=== PATIENT | female | born 1990 | race Caucasian/White ===

== ENCOUNTER 2019-06-06 10:10 | Emergency (ER) | payer SELFPAY ==
[2019-06-06 10:16] VITALS: BP 125/74; PULSE 107; RESP 20; TEMP 36.5; O2SAT 95
--- NOTE | 2019-06-06 10:24 | ED.GENADUL_ITS ---
Discharge Plan Disposition Patient Disposition: HOME Condition: Improving Discharge Details Chief Complaint: GenMedical Clinical Impression: Exudative pharyngitis Primary Care Provider: None,None ED Provider: Reji Valenzuela Home Meds and New Rx's Prescriptions: New penicillin V potassium 500 mg tablet 500 mg PO TID 10 Days Qty: 30 RF: 0 Discharge Instructions Instructions: Pharyngitis (ED) Additional Instructions: Please take penicillin as prescribed. Home to rest today. Small, frequent sips of fluids and/or popsicles to maintain hydration. May use Tylenol and or ibuprofen if needed for discomfort. Return for worsening, the development of drooling, difficulty talking or breathing, or any other acute concerns. We will refer you for follow-up to establish primary care in this area. Medical Decision Making 29-year-old female presents with day 3 of sore throat, body ache, fever and chills at home. She is afebrile but slightly tachycardic, in mild distress and dehydrated in appearance. Differential diagnosis includes pharyngitis, influenza, viral syndrome. IV placed, patient given fluid bolus, ketorolac, dexamethasone for its anti- inflammatory properties. Her diagnostic studies reveal rapid strep test is positive. Laboratory otherwise notable for elevated white blood cell count of 16, with left shift, consistent with acute illness. Chemistries unremarkable, mono screen negative. We will treat with a course of penicillin. She is improving following parenteral meds and fluids. She understands homecare as well as return/follow- up indications. HPI General Mode of arrival: ambulatory . Date/Time Provider Initiated Documentation: 06/06/19 10:11 . Limitations to Documentation: no limitations . History of Present Illness 29 year old F presents to the emergency department with the chief complaint of 3 days sore throat, chills, body ache, described as moderate, Quality is described as dull and constant, and is localized to the mouth. Patient reports no radiation. Patient started experiencing this day(s) and it has been constant. No relieving factors improve symptom(s), No exacerbating factors reported . Patient notes fever/chills, loss of appetite and malaise; denies cough and shortness of breath. 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 No vomiting. No diarrhea. No recent travel. 6 systems reviewed and otherwise negative [facility] Social History Smoking/Tobacco Use Status: Current every day Alcohol Intake: current Alcohol Intake frequency: a few times a week Substance use type: does not use Do you feel safe at home: Yes Exam Narrative Exam Narrative: GEN: awake, alert, oriented 3. Pleasant, well groomed, interactive. HEAD: Normocephalic, atraumatic ENT: Mucous membranes dry, oropharynx erythematous tonsillar pillars with scant white exudate, the uvula is midline there is no asymmetry, External ear exam unremarkable EYES: PERRL, EOMI NECK: Full ROM, anterior submandibular SACHI, no menigismus CHEST/RESP: Nontender, clear to auscultation bilateral, no wheeze/rhonchi/rales CARDIOVASCULAR: Regular and tachycardic, no murmur, rub yulia. 2+ Rad pulse bilateral ABDOMEN: Soft, nontender, no mass. +Bowel sounds EXT: Full ROM, no edema, no rash Neuro: Grossly normal neurologic exam, conversant, interactive. Psych: Speech fluent, thoughts congruent, affect normal Course Vital Signs Vital signs: Vital Signs Temperature 36.5 C 06/06/19 10:16 Pulse 107 H 06/06/19 10:16 Respiratory Rate 20 06/06/19 10:16 Blood Pressure 125/74 06/06/19 10:16 Pulse Oximetry 95 06/06/19 10:16 Temperature 36.5 C 06/06/19 10:16 Temperature Source Skin 06/06/19 10:16 Pulse 107 H 06/06/19 10:16 Respiratory Rate 20 06/06/19 10:16 Respiratory Effort 06/06/19 10:21 Respiratory Depth Normal 06/06/19 10:21 Respiratory Pattern Normal 06/06/19 10:21 Blood Pressure 125/74 06/06/19 10:16 Blood Pressure Position Sitting 06/06/19 10:16 Pulse Oximetry 95 06/06/19 10:16 Oxygen Delivery Method Room Air 06/06/19 10:16 Oxygen Flow Rate 0 06/06/19 10:16 Pain Level 8 06/06/19 10:16 Lab/Test Results Lab/Test Results: 06/06/19 10:23 Nasopharynx Influenza Types A,B Antigen - Pending
[2019-06-06] MEDS: Normal Saline Flush 10 ML SYR IVP (10:30)
[2019-06-06] MEDS: Normal Saline 1,000 ML 1000 ML IV (10:35)
[2019-06-06] MEDS: Dexamethasone 10 MG/ML VIAL IVP (10:41)
[2019-06-06] MEDS: Ketorolac 15 MG/ML VIAL IVP (10:42)
[2019-06-06 10:48] LABS: HCT 39.7 % (36.0-46.0); HGB 13.5 g/dL (12.0-15.5); Mean Corpuscular Volume 94.1 fL (80-95); Mean Platelet Volume 8.7 fL (8.0-11.0); Platelet Count 206 x1000/uL (130-400); RBC 4.22 m/cumm (4.00-5.20); RBC Distribution Width 12.3 % (11.7-14.6); White Blood Cell Count 16.79 k/cumm (4.4-10.8)
[2019-06-06 10:57] LABS: ALT 38 U/L (14-59); AST 13 U/L (15-37); Albumin 3.5 g/dL (3.4-5.0); Alkaline Phosphatase 87 U/L (46-116); BUN 6 mg/dL (7-18); Bilirubin, Total 0.6 mg/dL (0.2-1.0); Calcium 8.6 mg/dL (8.5-10.1); Chloride 101 mmol/L (98-107); Glucose 130 mg/dL (70-100); Potassium 3.7 mmol/L (3.5-5.1); Sodium 137 mmol/L (136-145); Total Protein 8.2 g/dL (6.4-8.2)
[2019-06-06 11:00] LABS: Mono Screening Negative (Negative)
[2019-06-06 11:04] LABS: Absolute Lymphocyte Count 1.34 k/cumm (1.2-3.4); Absolute Monocyte Count 1.18 k/cumm (0.11-0.7); Absolute Neutrophil Count 14.27 k/cumm (1.2-6.7); Atypical Lymphocytes % 1; Diff Comment Manual Differential; RBC Morphology Normal
--- NOTE | 2019-06-06 12:08 | NUR.NOTE ---
pt states feeling better tolerating popsicle Nursing Note:
[2019-06-06 12:13] VITALS: BP 114/68; PULSE 90; RESP 16; TEMP 36.5; O2SAT 96
== END 2019-06-06 12:19 | disposition home or self-care (01) ==
PROVIDERS: Emergency Provider Emergency Medicine
DX: J02.0 Streptococcal pharyngitis (principal)
CPT/HCPCS: 36415; 80053; 87449; 87880; 96361; 96374; 96375; 99284; 85025; 86308; J1100; J1885

== ENCOUNTER 2019-11-25 16:14 | Outpatient (REF) | payer MEDICAID, SELFPAY ==
[2019-11-25 18:28] LABS: *AMPHETAMINES SCREEN URINE Negative (Negative); *BARBITURATES SCREEN URINE Negative (Negative); *BENZODIAZEPINES SCREEN URINE Negative (Negative); Cannabinoids THC Negative (Negative); Cocaine Screen,Urine Negative (Negative); METHADONE URINE SCREEN Negative (Negative); OPIATES URINE SCREEN Negative (Negative)
[2019-11-25 19:10] LABS: Tricyclic Antidepressants Negative (Negative)
[2019-11-27 10:12] LABS: Buprenorphine 576.6 ng/mL; Norbuprenorphine 441.8 ng/mL
== END 2019-11-25 16:34 ==
LOC: LBN 16:14
PROVIDERS: Visit Provider Advanced Practice Midwife
DX: Z34.91 Encounter for supervision of normal pregnancy, unspecified, first trimester (principal)
CPT/HCPCS: 80307; 87086

== ENCOUNTER 2019-12-23 01:06 | Outpatient (CLI) | payer MEDICAID, SELFPAY ==
--- NOTE | 2019-12-23 07:15 | DI.US_ITS ---
EXAM: US OB 2-3 TRIMESTER W MOD CLINICAL HISTORY: 18 wk anatomy survey,Z34.90. TECHNIQUE: Transabdominal obstetrical ultrasound performed. COMPARISON: No exams were available for comparison FINDINGS: There is a single living intrauterine gestation. The estimated sonographic age is 18 weeks. The placenta is anterior and low lying. The placental tip is 1.8 cm from the internal os. Visually the amniotic fluid is within normal limits. heart rate is 147 beats per minute. nose and lips were not well evaluated on this examina tion. In addition, there is a question of dilatation of the renal collecting systems. However, an A P measurement of the collecting systems were not obtained during this examination. No other or placental abnormalities are identified. IMPRESSION: 1. Single live intrauterine gestation as above. 2. Low-lying placenta. Follow-up is recommended. 3. Question of dilatation of the renal collecting system. However, AP measurements of the collecting systems were not obtained. 4. The nose and lips were not visualized well during this examination. 5. The patient should return for re-evaluation of the renal collecting system, the low-lying placenta and the nose and lips. Patient is scheduled to return 12/30/19. DATA REPOSITORY:
== END 2019-12-23 01:26 ==
PROVIDERS: Visit Provider Advanced Practice Midwife
DX: O44.42 Low lying placenta NOS or without hemorrhage, second trimester (principal); Z3A.18 18 weeks gestation of pregnancy
CPT/HCPCS: 76805

== ENCOUNTER 2019-12-23 15:01 | Outpatient (REF) | payer MEDICAID, SELFPAY ==
--- NOTE | 2019-12-23 13:45 | PAPFT_PTH ---
PATIENT: Juan Stephenson LOC: [facility] U#:[id number] AGE/SX: 29/F ROOM: RE12/23/[address]: Sergio Olvera RN : 1990 BED: DIS: 12/23/2019 SPEC #: [id number] RECD: 12/23/19 15:43 STATUS: VANESSA REDeon #: [id number] TEOFILO: 12/23/19 13:[address]: Sergio Olvera DEPT: [facility] Cytology RECD BY: Richard Hernandez Tissues: 1 - CX/ENDOCX FOR PAP SMEARS Procedures: PAP THIN PREP/UVM Screening HPV DNA PROBE Comments: [id number]
[2019-12-27 15:41] LABS: Chlamydia Result Negative (Negative); GC Result Negative (Negative)
== END 2019-12-23 15:21 ==
LOC: LBN 15:01
PROVIDERS: Visit Provider Advanced Practice Midwife
DX: Z34.92 Encounter for supervision of normal pregnancy, unspecified, second trimester (principal); Z12.4 Encounter for screening for malignant neoplasm of cervix; Z11.51 Encounter for screening for human papillomavirus (HPV); Z11.3 Encounter for screening for infections with a predominantly sexual mode of transmission
CPT/HCPCS: 87491; 87591; 88142; 87624

== ENCOUNTER 2019-12-30 00:29 | Outpatient (CLI) | payer MEDICAID, SELFPAY ==
--- NOTE | 2019-12-30 | DI.US_ITS ---
EXAM: US OB F/U FACIAL/LVOT/RVOT CLINICAL HISTORY: F/U TO VIEW NOSE AND LIPS. COMPARISON: US OB 2-3 TRIMESTER W MOD from 12/23/2019 TECHNIQUE: Transabdominal obstetrical ultrasound performed. FINDINGS: Sonographic images demonstrate a single intrauterine gestation. The placenta is again noted to be anterior and low lying. The tip of the placenta measures 1.2 cm fr om the internal os. heart rate motion is Dopplered at: 143 bpm. Again noted is mild bilateral symmetric pelviectasis. The renal pelves were measured in the transver se dimension at 3 millimeters. nose/lips/palate: Unremarkable. Cervical length 4.3 cm. Amount of fluid is within normal limits. IMPRESSION: Bilateral renal pelvis measurement of 3 millimeters is within normal limits and likely represen ts physiologic pelviectasis. Low-lying placenta. DATA REPOSITORY:
== END 2019-12-30 00:49 ==
PROVIDERS: Visit Provider Advanced Practice Midwife
DX: O44.42 Low lying placenta NOS or without hemorrhage, second trimester (principal); Z3A.19 19 weeks gestation of pregnancy
CPT/HCPCS: 76815

== ENCOUNTER 2019-12-30 13:44 | Outpatient (REF) | payer MEDICAID, SELFPAY ==
[2019-12-30 14:35] LABS: Abs Immature Grans 0.01 k/cumm (0.0-0.09); Absolute Eosinophil Count 0.07 k/cumm (0.0-0.7); Absolute Lymphocyte Count 2.14 k/cumm (1.2-3.4); Absolute Monocyte Count 0.61 k/cumm (0.11-0.7); Absolute Neutrophil Count 3.02 k/cumm (1.2-6.7); Eosinophils % 1.2; HGB 12.6 g/dL (12.0-15.5); Immature Grans % 0.2 %; Lymphocytes % 36.6; Mean Corpuscular Hemoglobin 31.6 pg (27.0-33.0); Mean Corpuscular Volume 90.2 fL (80-95); Mean Platelet Volume 9.1 fL (8.0-11.0); Monocytes % 10.4; Neutrophils % 51.6; Platelet Count 236 x1000/uL (130-400); RBC 3.99 m/cumm (4.00-5.20); RBC Distribution Width 12.6 % (11.7-14.6); White Blood Cell Count 5.85 k/cumm (4.4-10.8)
[2019-12-30 14:39] LABS: Glucose,1 Hr (Glucola) 118 mg/dL (80-140)
[2019-12-30 14:52] LABS: TSH (W/Ref FT4) 1.67 uIU/mL (0.36-3.74)
[2019-12-31 10:10] LABS: Hepatitis C Ab w Rflx HCV PCR Negative (Negative)
[2019-12-31 10:11] LABS: HIV-1/2 Ag & Ab Screen Negative (Negative)
[2019-12-31 10:25] LABS: Rubella IgG Ab (UVM) Positive (See Note); Varicella IgG Antibody Positive (See Note)
[2019-12-31 11:01] LABS: Hepatitis B Surface Ag Negative (Negative)
[2020-01-01 10:27] LABS: Syphilis Total Ab w/Reflex Nonreactive (Nonreactive)
== END 2019-12-30 14:04 ==
LOC: LBN 13:44
PROVIDERS: Advanced Practice Midwife; Visit Provider Advanced Practice Midwife
DX: Z34.91 Encounter for supervision of normal pregnancy, unspecified, first trimester (principal); Z11.59 Encounter for screening for other viral diseases; Z11.4 Encounter for screening for human immunodeficiency virus [HIV]; Z01.84 Encounter for antibody response examination
CPT/HCPCS: 82950; 86787; 86803; 86850; 86900; 86901; 87340; 87389; 84443; 85025; 86762; 86780

== ENCOUNTER 2020-02-21 18:25 | Outpatient (REF) | payer MEDICAID, SELFPAY ==
[2020-02-21 17:24] LABS: *AMPHETAMINES SCREEN URINE Negative (Negative); *BARBITURATES SCREEN URINE Negative (Negative); *BENZODIAZEPINES SCREEN URINE Negative (Negative); Cannabinoids THC Negative (Negative); Cocaine Screen,Urine Negative (Negative); METHADONE URINE SCREEN Negative (Negative); OPIATES URINE SCREEN Negative (Negative)
[2020-02-21 17:28] LABS: Tricyclic Antidepressants Negative (Negative)
[2020-02-24 08:17] LABS: Buprenorphine 157.1 ng/mL; Norbuprenorphine 396.9 ng/mL
== END 2020-02-21 18:45 ==
LOC: LBN 18:25
PROVIDERS: Visit Provider Advanced Practice Midwife
DX: Z34.92 Encounter for supervision of normal pregnancy, unspecified, second trimester (principal)
CPT/HCPCS: 80307

== ENCOUNTER 2020-03-21 00:53 | Outpatient (CLI) | payer MEDICAID, SELFPAY ==
--- NOTE | 2020-03-21 12:45 | DI.US_ITS ---
EXAM: US OB F/U FACIAL/LVOT/RVOT CLINICAL HISTORY: low lying placenta, related condition, 026.93 TECHNIQUE: Ultrasound performed using standard protocol. COMPARISON: US US OB F/U FACIAL/LVOT/RVOT from 12/30/2019 FINDINGS: Limited OB ultrasound was performed to re-evaluate await low lying placenta identified prior ultrasou nd December 29. On today's examination there is no placenta previa, the inferior margin of the placenta lies 32 wilfredo meters above the internal cervical os. Fetus is in cephalic presentation. heart rate is 141 BPM. IMPRESSION: DATA REPOSITORY:
== END 2020-03-21 01:13 ==
PROVIDERS: PCP Family Medicine; Visit Provider Advanced Practice Midwife
DX: O12.13 Gestational proteinuria, third trimester (principal)
CPT/HCPCS: 76815

== ENCOUNTER 2020-03-21 03:43 | Outpatient (CLI) | payer MEDICAID, SELFPAY ==
[2020-03-21 13:55] LABS: Glucose,1 Hr (Glucola) 107 mg/dL (80-140)
[2020-03-21 14:06] LABS: HCT 34.5 % (36.0-46.0); HGB 11.8 g/dL (12.0-15.5); Mean Corp. HGB Concentration 34.2 g/dL (32.0-36.0); Mean Corpuscular Hemoglobin 31.1 pg (27.0-33.0); Platelet Count 258 x1000/uL (130-400); RBC 3.79 m/cumm (4.00-5.20); RBC Distribution Width 13.3 % (11.7-14.6); White Blood Cell Count 7.59 k/cumm (4.4-10.8)
[2020-03-21 14:22] LABS: ALT 15 U/L (14-59); AST 13 U/L (15-37); Albumin 2.9 g/dL (3.4-5.0); Alkaline Phosphatase 93 U/L (46-116); Anion Gap 9.8 mmol/L (3-11); BUN 7 mg/dL (7-18); Bilirubin, Total 0.2 mg/dL (0.2-1.0); CO2 23.2 mmol/L (21.0-32.0); CREATININE 0.52 mg/dL (0.55-1.02); Calcium 8.6 mg/dL (8.5-10.1); Chloride 103 mmol/L (98-107); Glucose 108 mg/dL (74-106); Potassium 3.8 mmol/L (3.5-5.1); Sodium 136 mmol/L (136-145); Total Protein 6.9 g/dL (6.4-8.2); Uric Acid 2.8 mg/dL (2.6-6.0)
[2020-03-21 17:19] LABS: *AMPHETAMINES SCREEN URINE Negative (Negative); *BARBITURATES SCREEN URINE Negative (Negative); *BENZODIAZEPINES SCREEN URINE Negative (Negative); Cannabinoids THC Negative (Negative); Cocaine Screen,Urine Negative (Negative); METHADONE URINE SCREEN Negative (Negative); OPIATES URINE SCREEN Negative (Negative); Tricyclic Antidepressants Negative (Negative)
== END 2020-03-21 04:03 ==
PROVIDERS: Advanced Practice Midwife; PCP Family Medicine; Visit Provider Advanced Practice Midwife
DX: O99.323 Drug use complicating pregnancy, third trimester (principal); O99.333 Smoking (tobacco) complicating pregnancy, third trimester
CPT/HCPCS: 36415; 76815; 80053; 80307; 82950; 85027; 82565; 84156; 84550

== ENCOUNTER 2020-04-05 13:01 | Outpatient (REF) | payer MEDICAID, SELFPAY ==
[2020-04-05 13:36] LABS: *AMPHETAMINES SCREEN URINE Negative (Negative); *BARBITURATES SCREEN URINE Negative (Negative); *BENZODIAZEPINES SCREEN URINE Negative (Negative); Cannabinoids THC Negative (Negative); Cocaine Screen,Urine Negative (Negative); METHADONE URINE SCREEN Negative (Negative); OPIATES URINE SCREEN POSITIVE (Negative); Tricyclic Antidepressants Negative (Negative)
[2020-04-08 05:43] LABS: Codeine 32 ng/mL (Cutoff: 25); Dihydrocodeine Negative ng/mL (Cutoff: 25); Hydrocodone Negative ng/mL (Cutoff: 25); Hydromorphone Negative ng/mL (Cutoff: 25); Morphine 272 ng/mL (Cutoff: 25); Naloxone 274 ng/mL (Cutoff: 25); Norhydrocodone Negative ng/mL (Cutoff: 25); Noroxycodone Negative ng/mL (Cutoff: 25); Noroxymorphone Negative ng/mL (Cutoff: 25); Opiates Interpretation Positive.
[2020-04-08 15:27] LABS: Buprenorphine 132.9 ng/mL; Norbuprenorphine 521.6 ng/mL
== END 2020-04-05 13:21 ==
LOC: LBN 13:01
PROVIDERS: PCP Family Medicine; Visit Provider Advanced Practice Midwife
DX: F11.20 Opioid dependence, uncomplicated (principal); F19.21 Other psychoactive substance dependence, in remission
CPT/HCPCS: 80307; 80361

== ENCOUNTER 2020-04-10 14:17 | Outpatient (REF) | payer MEDICAID, SELFPAY ==
[2020-04-10 15:12] LABS: *AMPHETAMINES SCREEN URINE Negative (Negative); *BARBITURATES SCREEN URINE Negative (Negative); *BENZODIAZEPINES SCREEN URINE Negative (Negative); Cannabinoids THC Negative (Negative); Cocaine Screen,Urine Negative (Negative); METHADONE URINE SCREEN Negative (Negative); OPIATES URINE SCREEN Negative (Negative); Tricyclic Antidepressants Negative (Negative)
[2020-04-10 15:14] LABS: PROTEIN 12.4 mg/dL
[2020-04-10 16:11] LABS: COMMENT (LAB VIEW ONLY) 83.22 mg/dL; Prot/Crea Ur Ratio 0.14
[2020-04-13 13:16] LABS: Norbuprenorphine 292.8 ng/mL
== END 2020-04-10 14:37 ==
LOC: LBN 14:17
PROVIDERS: PCP Family Medicine; Visit Provider Advanced Practice Midwife
DX: Z34.90 Encounter for supervision of normal pregnancy, unspecified, unspecified trimester (principal); F19.21 Other psychoactive substance dependence, in remission
CPT/HCPCS: 80307; 82565; 84156

== ENCOUNTER 2020-04-12 02:59 | Outpatient (CLI) | payer MEDICAID, SELFPAY ==
--- NOTE | 2020-04-12 07:45 | DI.US_ITS ---
EXAM: US OB SAMUEL WEIGHT CLINICAL HISTORY: Gestational hypertension,O13.9 TECHNIQUE: Ultrasound performed using standard protocol. COMPARISON: US US OB F/U FACIAL/LVOT/RVOT from 03/21/2020 FINDINGS: Ob ultrasound was performed utilizing 3rd trimester protocol. biometry is consistent with gest ational age of 35 weeks and EDC of May 17. The estimated weight is 2700 grams which is at the 90th percentile for predicted gestational ag e. Placenta is anterior with no placenta previa. There is visually a normal quantity of amniotic fluid and the SAMUEL is 11. Fetus is in cephalic presentation. heart rate is 144 BPM. IMPRESSION: DATA REPOSITORY:
== END 2020-04-12 03:19 ==
PROVIDERS: PCP Family Medicine; Visit Provider Advanced Practice Midwife
DX: O13.3 Gestational [pregnancy-induced] hypertension without significant proteinuria, third trimester (principal)
CPT/HCPCS: 76816

== ENCOUNTER 2020-04-12 07:14 | Outpatient (CLI) | payer MEDICAID, SELFPAY | END 2020-04-12 07:34 | PROVIDERS: PCP Family Medicine; Visit Provider Advanced Practice Midwife | DX: O13.3 Gestational [pregnancy-induced] hypertension without significant proteinuria, third trimester (principal); Z3A.33 33 weeks gestation of pregnancy | CPT/HCPCS: 59025 ==

== ENCOUNTER 2020-04-28 17:57 | Outpatient (REF) | payer MEDICAID, SELFPAY ==
[2020-04-28 14:04] LABS: *AMPHETAMINES SCREEN URINE Negative (Negative); *BARBITURATES SCREEN URINE Negative (Negative); *BENZODIAZEPINES SCREEN URINE Negative (Negative); Cannabinoids THC Negative (Negative); Cocaine Screen,Urine Negative (Negative); METHADONE URINE SCREEN Negative (Negative); OPIATES URINE SCREEN Negative (Negative); Tricyclic Antidepressants Negative (Negative)
== END 2020-04-28 18:17 ==
LOC: LBN 17:57
PROVIDERS: PCP Family Medicine; Visit Provider Advanced Practice Midwife
DX: Z34.90 Encounter for supervision of normal pregnancy, unspecified, unspecified trimester (principal)
CPT/HCPCS: 80307; 87081

== ENCOUNTER 2020-05-11 10:17 | Outpatient (CLI) | payer MEDICAID, SELFPAY ==
[2020-05-11 11:00] LABS: HCT 35.1 % (36.0-46.0); MCH 31.3 pg (27.0-33.0); MCHC 34.2 % (32.0-36.0); MCV 91.4 fL (80-95); MPV 8.7 fL (8.0-11.0); Platelet Count 236 10^3/uL (130-400); RBC 3.84 10^6/uL (3.93-5.22); RDW 13.2 % (11.7-14.6); RDW-SD 43.8 fL; WBC 7.14 10^3/uL (4.4-10.8)
[2020-05-11 11:08] LABS: ALT 14 U/L (14-59); AST 13 U/L (15-37); Albumin 2.7 g/dL (3.4-5.0); Alkaline Phosphatase 129 U/L (46-116); Anion Gap 8.6 mmol/L (3-11); BUN 6 mg/dL (7-18); Bilirubin, Total 0.2 mg/dL (0.2-1.0); CO2 24.4 mmol/L (21.0-32.0); CREATININE 0.54 mg/dL (0.55-1.02); Calcium 8.5 mg/dL (8.5-10.1); Chloride 103 mmol/L (98-107); Glucose 93 mg/dL (74-106); Sodium 136 mmol/L (136-145); Total Protein 6.7 g/dL (6.4-8.2); Uric Acid 3.5 mg/dL (2.6-6.0)
== END 2020-05-11 10:37 ==
PROVIDERS: PCP Family Medicine; Visit Provider Advanced Practice Midwife
DX: O26.893 Other specified pregnancy related conditions, third trimester (principal); R03.0 Elevated blood-pressure reading, without diagnosis of hypertension; O99.323 Drug use complicating pregnancy, third trimester; F11.20 Opioid dependence, uncomplicated
CPT/HCPCS: 36415; 80053; 80307; 85027; 82565; 84156; 84550

== ENCOUNTER 2020-05-11 17:51 | Outpatient (REF) | payer MEDICAID, SELFPAY ==
[2020-05-11 16:25] LABS: PROTEIN 10.8 mg/dL
[2020-05-11 16:30] LABS: COMMENT (LAB VIEW ONLY) 63.62 mg/dL; Prot/Crea Ur Ratio 0.16
[2020-05-11 16:48] LABS: *AMPHETAMINES SCREEN URINE Negative (Negative); *BARBITURATES SCREEN URINE Negative (Negative); *BENZODIAZEPINES SCREEN URINE Negative (Negative); Cannabinoids THC Negative (Negative); Cocaine Screen,Urine Negative (Negative); METHADONE URINE SCREEN Negative (Negative); OPIATES URINE SCREEN Negative (Negative)
[2020-05-11 16:50] LABS: Tricyclic Antidepressants Negative (Negative)
[2020-05-17 11:08] LABS: Buprenorphine 87.4 ng/mL; Norbuprenorphine 255.8 ng/mL
== END 2020-05-11 18:11 ==
LOC: LBN 17:51
PROVIDERS: PCP Family Medicine; Visit Provider Advanced Practice Midwife
DX: F11.11 Opioid abuse, in remission; O16.3 Unspecified maternal hypertension, third trimester
CPT/HCPCS: 80307; 82565; 84156

== ENCOUNTER 2020-05-16 09:48 | Outpatient (CLI) | payer MEDICAID, SELFPAY | END 2020-05-16 10:08 | PROVIDERS: PCP Family Medicine; Visit Provider Advanced Practice Midwife | DX: Z36.83 Encounter for fetal screening for congenital cardiac abnormalities (principal); Z3A.38 38 weeks gestation of pregnancy | CPT/HCPCS: 59025 ==

== ENCOUNTER 2020-05-18 00:47 | Outpatient (CLI) | payer MEDICAID, SELFPAY ==
--- NOTE | 2020-05-18 08:00 | DI.US_ITS ---
EXAM: US OB SAMUEL WEIGHT CLINICAL HISTORY: interval growth scan,F19.21,F41.9,MEDICATION ADDICTION IN REMISSION. TECHNIQUE: Transabdominal obstetrical ultrasound performed. COMPARISON: US US OB SAMUEL WEIGHT from 04/12/2020 FINDINGS:: Number of fetuses: One. position: Vertex. Placental location: Anterior no evidence of previa. BIOMETRIC DATA: BPD: 94mm = 38+ 2 weeks HC: 334mm = 38+ 1 weeks AC: 351mm = 39 weeks FL: 76 mm = 39 weeks EFW: 3595 Gms = 67% Composite Age: 38+ 4 EDC: 28 May 2020 Heart Rate: 131BPM Amniotic fluid index: 14.0 cm. Amount of fluid is within normal limits. IMPRESSION: size and weight are within the expected range. DATA REPOSITORY:
== END 2020-05-18 01:07 ==
PROVIDERS: PCP Family Medicine; Visit Provider Advanced Practice Midwife
DX: Z34.93 Encounter for supervision of normal pregnancy, unspecified, third trimester (principal); F19.21 Other psychoactive substance dependence, in remission
CPT/HCPCS: 76816

== ENCOUNTER 2020-05-29 09:25 | Outpatient (CLI) | payer MEDICAID, SELFPAY ==
[2020-05-29 14:32] VITALS: BP 111/63; PULSE 82; TEMP 37
[2020-05-29 14:34] VITALS: BP 111/63; PULSE 82
--- NOTE | 2020-05-29 14:43 | W.OBNST ---
Date of service: 05/29/20 Time of Service: 14:43 NST Evaluation Reason for NST Reasons for Nonstress Test: POSTDATES Gestational Age Gestational Age in Weeks and Days: 40 Weeks and 3Days Test and Monitor Explained Test/Monitor Explained: Test Explained and Patient Verbalized Understanding Vital Signs Blood Pressure: 111/63 Pulse: 82 Temperature: 98.6 F NST Information Time on Monitor: 13:43 Date off Monitor: 05/29/20 Time off Monitor: 14:44 NST Interventions: PO Hydration and Reposition Patient NST Evaluation Patient States Movement: Present FHR Baseline: 125 Variability: Moderate 6-25 bpm Accelerations: 15x15 Decelerations: None NST Results: Reactive Note NST Note Note: @ 40+3 wks here for NST and check up. NST is reactive. Will return at 41 wks for NST and bedside SAMUEL. NST Reviewed and Verified by: Myah May
[2020-05-29 14:45] VITALS: BP 111/63; PULSE 82; TEMP 37
[2020-05-29 16:13] LABS: *AMPHETAMINES SCREEN URINE Negative (Negative); *BARBITURATES SCREEN URINE Negative (Negative); *BENZODIAZEPINES SCREEN URINE Negative (Negative); Cannabinoids THC Negative (Negative); Cocaine Screen,Urine Negative (Negative); METHADONE URINE SCREEN Negative (Negative); OPIATES URINE SCREEN Negative (Negative); Tricyclic Antidepressants Negative (Negative)
[2020-06-06 20:32] LABS: Buprenorphine 128.6 ng/mL; Norbuprenorphine 293.1 ng/mL
== END 2020-05-29 14:45 | disposition home or self-care (01) ==
LOC: BCD 09:30 → OBS 14:04
PROVIDERS: Visit Provider Advanced Practice Midwife
DX: O48.0 Post-term pregnancy (principal); Z3A.40 40 weeks gestation of pregnancy
CPT/HCPCS: 59025; 80307

== ENCOUNTER 2020-06-02 08:31 | Outpatient (CLI) | payer MEDICAID, SELFPAY ==
[2020-06-02 11:10] VITALS: BP 165/95; PULSE 85; TEMP 37.3
[2020-06-02 12:02] VITALS: BP 165/95; PULSE 85
--- NOTE | 2020-06-02 13:22 | W.OBNST ---
Date of service: 06/02/20 Time of Service: 13:22 NST Evaluation Reason for NST Reasons for Nonstress Test: POSTDATES Gestational Age Gestational Age in Weeks and Days: 41 Weeks and 0Days Test and Monitor Explained Test/Monitor Explained: Test Explained, Monitor Explained and Patient Verbalized Understanding Vital Signs Blood Pressure: 165/95 Pulse: 85 Temperature: 99.1 F NST Information Time on Monitor: 11:10 Date off Monitor: 06/02/20 Time off Monitor: 12:53 NST Interventions: PO Hydration NST Evaluation Patient States Movement: Present FHR Baseline: 130 Variability: Moderate 6-25 bpm Accelerations: 15x15 Decelerations: Variable NST Results: Reactive NST Results Other: SAMUEL done by CNM, 6.03, will return for IOL this afternoon Note NST Note Note: Variable decel x1 noted in otherwise reactive and cat 1 tracing, Bedside ultrasound for SAMUEL completed by Provider, cephalic presentation LOP, anterior placenta, SAMUEL of 6.03 SVE performed: 0.5/60% posterior with vtx -3 BP not repeated as pt very emotional, crying. Will repeat BP upon admission for IOL this afternoon. NST Reviewed and Verified by: Myah May
[2020-06-02 13:23] VITALS: BP 165/95; PULSE 85; TEMP 37.3
== END 2020-06-02 13:16 | disposition home or self-care (01) ==
LOC: BCD 08:33 → OBS 10:46 → BCD 10:49 → OBS 10:51
PROVIDERS: Visit Provider Advanced Practice Midwife
DX: O48.0 Post-term pregnancy (principal); O76 Abnormality in fetal heart rate and rhythm complicating labor and delivery; Z3A.41 41 weeks gestation of pregnancy
CPT/HCPCS: 59025

== ENCOUNTER 2020-06-02 13:39 | Inpatient (IN) | payer MEDICAID, SELFPAY ==
[2020-06-02 18:45] VITALS: PULSE 102; RESP 20; TEMP 36.8; O2SAT 98
--- NOTE | 2020-06-02 18:53 | HPE_ITS ---
Date of service: 06/02/20 Time of Service: 18:53 Assessment and Plan Assessment and plan (1) Post-dates : Status: Acute Assessment and plan: G1 @ 41 wks, Rh+, Rubella and Varicella Immune, GBS neg, low-normal SAMUEL today Question of gestational HTN, BP has been labile and subject to pt's emotional state and mood swings, pre-e labs nml x2 in third trimester Pt in MAT program and takes suboxone daily; pt has been educated about ESC period for 5 days Pt accompanied by /FOB for support No increased risk for shoulder dystocia other then primiparous status Increased risk for hemorrhage due to elevated BP Pt's plan is to use the tub for pain management Category 1 tracing on admission, not in labor, Hou score = 3 Plan: Admit for IOL via cervical ripening Repeat pre-e labs, follow BP's closely Begin misoprostel protocol May move to tub room when labor is active and BP is stable Dr. Madrid consulting Qualifiers: Post-term type: 40-42 weeks gestation Qualified Code(s): O48.0 - Post-term (2) Gestational hypertension: Status: Acute Assessment and plan: Pre-e labs on admission, BP q 2hrs manually Report severe range pressures to MD (3) Anxiety: Status: Chronic Assessment and plan: Discuss diagnoses, treatment options, risks and benefits openly and clearly with pt, Support pt's informed choices OB-HPI Labor/Delivery History of Present Illness Reason for Visit: POST DATES, LOW-NORMAL FLUID Chief Complaint: Scheduled Induction of Labor Indication for Induction: Gestational Hypertension and Post Date. CARLA Calculator Estimated Delivery Date Method Current WG Current Estimate 05/26/20 LMP (Certain) 41w 0d Other Estimates 05/30/20 Ultrasound #1 40w 3d Comments: 30 yo G1 @ 41 wks, evaluated earlier today with NST and SAMUEL: NST was reactive with an isolated variable noted, SAMUEL performed bedside @ 6.03, IOL scheduled for this evening via cervical ripening. Pt took low dose ASA during to reduce risk of Pre-e History of Present Expected Delivery Route/Plan - CNM FOB/cy - Reed Stephenson (his second child) Wants to avoid epidural, desires hydrotherapy in labor BB no circ GBS negative Specific Issues/Plan 1. BMI 37, early glucola: 118 2. Low dose ASA for nulliparity and BMI of 37, start 11/25/19 3. Hx tobacco abuse, is down to 1 cig every other day 4. Hx ETOH use, stopped when learned of 5. Declines optional AP screening tests Needs to sign declination of same 5a. 02/21/20 Declination of optional labs signed al 6. Takes Suboxone 12 mg daily, Rx from [facility]- Brigida Terry, TAO 6a. declines SMART Team 11/25/19 6b. retested at 33 weeks - pos. Codeine and morphine - patient ate poppy seed bagel prior to visit. Repeat UDS 4 days later=neg 6c. 36 week UDS, POSC due to suboxone treatment 04/28/20: Declines POSC. UDS neg 7. Low lying placenta, limited views of kidneys and face, Repeat US scheduled 12/29: 7a. anatomy survey completed/nml. Physiologic bilat renal pelviectasis noted, thought to be WNL. 7b. Placenta remains low lying 1.2 cm from os. F/up sono @ 28 wks- no longer low-lying 7c. physiologic pyelectasis 8, 12/31/19: + Emilie on Pap review if symptomatic at nv. al Experienced vaginitis earlier -no symptoms now. 9. Anxiety, no meds currently Assessment: History Reviewed & Current Informed Consent Informed Consent: Induction of Labor and Risk,Benefits,Alternatives Discussed Review of Systems All systems reviewed & are unremarkable except as noted in HPI and below Constitutional Constitutional: Reports system reviewed and no additional complaints, except as documented, Reports headache(s) (CARDENAS onset after pt was notified of need for Induction today) and Reports poor appetite ENT Ears, Nose, Mouth, and Throat: Reports headache(s) (CARDENAS onset after pt was notified of need for Induction today) Cardiovascular Cardiovascular: Reports system reviewed and no additional complaints, except as documented Respiratory Respiratory: Reports system reviewed and no additional complaints, except as documented Gastrointestinal Gastrointestinal: Reports system reviewed and no additional complaints, except as documented Genitourinary Genitourinary: Reports system reviewed and no additional complaints, except as documented Neurologic Neurologic: Reports headache(s) (CARDENAS onset after pt was notified of need for Induction today) Psychiatric Psychiatric: Reports anxiety [facility] Medical History Anxiety High BMI History of migraine 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, denies opiate use Family History Maternal Grandmother Diabetes Multiple sclerosis Paternal Grandmother Diabetes Social History Smoking/Tobacco Use Status: Current, status unknown Tobacco Type: cigarettes Smoking packs per day: 1 Smoking cigarettes per day: 20.0 Years smoked: 15 Smoking pack-years: 15.00 Tobacco: How many years used: 15 Alcohol Intake: former Drug use: Never Substance use type: does not use Do you feel safe at home: Yes Additional Social history: partner present, can not assess History History 2 Para 0 Hx # Term Pregnancies 0 Multiple births 0 Hx # Pregnancies 0 Ectopic pregnancies 0 AB induced 0 Hx Number of Living Children 0 AB spontaneous 1 Past Pregnancies Del. Date GA/Weeks # Outcome Route Wgt Sex Labor Lgth Anesthes ia Location [facility] 03/16/09 11 Delivery Date: 03/16/09 took miso for home SAB, has been very traumatized by the experience Myah May Home Medications and Allergies Home Medications Medication Instructions Recorded Confirmed Type B Complex PO QDAY 11/25/19 05/24/20 History aspirin 81 mg tablet,delayed 81 mg PO DAILY #90 tab 11/25/19 05/24/20 Rx release buprenorphine 2 mg-naloxone 0.5 mg 2 tab SL DAILY tab 11/25/19 05/24/20 History sublingual tablet buprenorphine 8 mg-naloxone 2 mg 1 tab SL DAILY 11/25/19 05/24/20 History sublingual tablet cholecalciferol (vitamin D3) 75 3,000 unit PO DAILY 11/25/19 05/24/20 History mcg (3,000 unit) tablet vitamins no.119-iron 1 tab PO DAILY tab 11/25/19 05/24/20 History fumarate 29 mg-folic acid 1 mg tablet omeprazole magnesium 20 mg 20 mg PO DAILY #30 tab 04/17/20 05/24/20 Rx tablet,delayed release ondansetron HCl 8 mg tablet 8 mg PO Q8H #20 tab 04/17/20 05/24/20 Rx Allergies Allergy/AdvReac Type Severity Reaction Status Date / Time No Known Allergies Allergy Unverified 05/24/20 09:32 Exam Physical Exam Vital Signs Reviewed: Yes Constitutional Constitutional: no acute distress, obese and cooperative Detailed Labor and Delivery Exam Dilation: 0.5 Effacement (%): 60 station: -3 Position: LOP Cervix position: posterior Consistency: medium Hou Score: Cervical Points Exam 0 1 2 3 Dilation Closed 1-2cm 3-4 cm 5-6cm Effacement 0-30% 40-50% 60-70% 80% Consistency Firm Medium Soft Station -3 -2 -1,0 +1,+2 Position Posterior Mid Anterior HOU Score(Cervical Ripeness Score): 3 Amniotic Membrane Status: Intact Monitor Mode: External Contraction Frequency(min): irregular and mild Contraction Intensity: Mild Fetus A Heart Rate Baseline: 135 Monitor Accelerations: Present Monitor Decelerations: None Variability: Moderate (6-25 BPM) Presentation: Cephalic Categories: Category I Est. Weight: 7 lb 11.459 oz Est. Weight: 3500 HEENT Exam HEENT Exam: Normal Neck Exam Neck Exam: Normal Respiratory Exam Respiratory Exam: Normal Cardiovascular Exam Cardiovascular Exam: Normal Abdominal Exam Abdominal Exam: Normal Detailed Abdominal Exam Abdominal: Present soft Exam Exam: Normal Detailed Exam Perineum Description: Normal Extremities Exam Extremities Exam: Normal Back/Spine/Pelvis Exam Back Exam: Normal Pelvis Adequate: Yes Skin Exam Skin Exam: Normal Neurological Exam Neurological Exam: Normal Psychiatric Exam Psychiatric Exam: Normal Results Results Group Beta Strep: Negative Blood Type: O+ Rubella Status: Immune Varicella Immunity: Immune Risk Assessment Risk for Shoulder Dystocia Historical/Initial OB: POSITIVE FOR: Pre- BMI>30; NEGATIVE FOR: Pelvic Abnormality, Previous Shoulder Dystocia or Previous Macrosomia 40 Weeks: NEGATIVE FOR: EFW> 4500 gms, Maternal Weight Gain >40lb or Post Dates Increased Risk?: No (04/28/20 as of 36 week visit al) Delivery Plan @ 36wks: 04/28/20 al Risk for Pre-Eclampsia Daily Dose ASA Indicated: Yes Date Initiated/Initials: start ASA now 11/25/19 jk Yes, if one or more: NEGATIVE FOR: Hx Pre-E/Gest HTN, Chronic HTN, Multiple Gestation, Pre-gestational DM, Renal Disease, Systemic Lupus or APA Syndrome Yes, if 2 or more: POSITIVE FOR: Nulliparity and BMI>30; NEGATIVE FOR: Age>= 35 yrs, >10yr btwn pregnancies, ethinicty, Mother/Sister w/ Pre-E or Previous IUGR Risk for Post- Hemorrhage Initial: NEGATIVE FOR: Multiple Gestation, Previous PPH, Known Clotting Deficiency, Grand Multiparity or Anticoagulation At Risk?: No (04/28/20 as of 36 week visit. al) Risks Reviewed Risks Reviewed Upon Admission: Yes
[2020-06-02] MEDS: Acetaminophen 500 MG TAB 1000 MG PO (19:20)
[2020-06-02 19:25] VITALS: BP 179/88; PULSE 92
[2020-06-02 19:32] LABS: HCT 35.6 % (36.0-46.0); MCH 31.2 pg (27.0-33.0); MCHC 33.7 % (32.0-36.0); MCV 92.5 fL (80-95); Platelet Count 227 10^3/uL (130-400); RBC 3.85 10^6/uL (3.93-5.22); RDW 13.2 % (11.7-14.6); RDW-SD 44.4 fL; WBC 7.96 10^3/uL (4.4-10.8)
[2020-06-02] MEDS: miSOPROStol 50 MCG TAB PO (19:44)
[2020-06-02 19:53] LABS: ALT 17 U/L (14-59); AST 13 U/L (15-37); Albumin 2.6 g/dL (3.4-5.0); Alkaline Phosphatase 146 U/L (46-116); BUN 5 mg/dL (7-18); Bilirubin, Total 0.3 mg/dL (0.2-1.0); CREATININE 0.44 mg/dL (0.55-1.02); Calcium 8.7 mg/dL (8.5-10.1); Chloride 104 mmol/L (98-107); Glucose 89 mg/dL (74-106); Potassium 3.5 mmol/L (3.5-5.1); Sodium 136 mmol/L (136-145); Total Protein 6.7 g/dL (6.4-8.2)
--- NOTE | 2020-06-02 19:59 | PGE_ITS ---
Date of service: 06/02/20 Time of Service: 19:59 Informed Consent Informed Consent: Induction of Labor and Risk,Benefits,Alternatives Discussed Contractions Monitor Mode: External Assessment and Plan Assessment and plan (1) Gestational hypertension: Status: Acute Assessment and plan: Labs pending, check BP q 2 hrs Report persistent severe range BP to Dr. Madrid (2) Post-dates : Status: Acute Assessment and plan: Misoprostel for cervical ripening Qualifiers: Post-term type: 40-42 weeks gestation Qualified Code(s): O48.0 - Post-term (3) Anxiety: Status: Chronic Assessment and plan: Keep pt informed of all treatment options, risks and benefits during the course of induction, labor and delivery. Objective Abnormal lab results 06/02/20 Range/Units 19: RBC 3.85 L (3.93-5.22) 10^6/uL Hct 35.6 L (36.0-46.0) % Temp Pulse Resp BP Pulse Ox 98.2 F 92 H 20 179/88 H 98 06/02/20 18:45 06/02/20 19:25 06/02/20 18:45 06/02/20 19:25 06/02/20 18:45 Laboratory Results WBC 7.96 10^3/uL (4.4-10.8) 06/02/20 19: RBC 3.85 10^6/uL (3.93-5.22) L 06/02/20 19:22 Hgb 12.0 g/dL (11.2-15.7) 06/02/20 19:22 Hct 35.6 % (36.0-46.0) L 06/02/20 19:22 MCV 92.5 fL (80-95) 06/02/20 19:22 MCH 31.2 pg (27.0-33.0) 06/02/20 19: MCHC 33.7 % (32.0-36.0) 06/02/20: RDW 13.2 % (11.7-14.6) 06/02/20 19:22 Plt Count 227 10^3/uL (130-400) 06/02/20 19:22 MPV 9.0 fL (8.0-11.0) 06/02/20 19:22 Subjective Interval history since last seen: Pt admitted to , labs drawn and first dose of misoprostel given. Initial BP is elevated, and pre-e labs are pending, pt requested tylenol 1000 mg PO for CARDENAS which was given. Pt initially declined to have a COVID swab done either STEWARD/STEWARDESS NIGHT or nasal I just don't think I should be forced to take a test that I don't want or need. Explained to pt that if her COVID status is unknown then the hospital is obligated to protect her baby from possible infection as anyone could be an asymptomatic carrier, to the point that DCF might have to be notified if she declined to comply with wearing a mask when holding and her baby. Pt expressed anger and frustration but consented to nasal swab sampling self administered with RN observing. Interventions Induction Indication: Gestational Hypertension and Post Date , Type of Induction: Misoprostol administration: Oral and Cervical Ripening , Results Hemoglobin/Hematocrit: Hgb 12.0 g/dL (11.2-15.7) 06/02/20 19:22 Hct 35.6 % (36.0-46.0) L 06/02/20 19:22 Abnormal Lab Findings: Abnormal Labs 06/02/20 19:22 RBC 3.85 L Hct 35.6 L Procedure Procedures: Cervical Ripening Cervical Ripening: Misoprostol
[2020-06-02 20:01] LABS: PROTEIN 10.4 mg/dL
[2020-06-02 20:22] LABS: COMMENT (LAB VIEW ONLY) 94.33 mg/dL; Prot/Crea Ur Ratio 0.11
[2020-06-02 20:32] LABS: Uric Acid 3.8 mg/dL (2.6-6.0)
[2020-06-02 21:11] LABS: *AMPHETAMINES SCREEN URINE Negative (Negative); *BARBITURATES SCREEN URINE Negative (Negative); *BENZODIAZEPINES SCREEN URINE Negative (Negative); Cannabinoids THC Negative (Negative); Cocaine Screen,Urine Negative (Negative); METHADONE URINE SCREEN Negative (Negative); OPIATES URINE SCREEN Negative (Negative)
[2020-06-02 21:20] LABS: Tricyclic Antidepressants Negative (Negative)
[2020-06-02 22:58] VITALS: BP 142/74; PULSE 96
[2020-06-02] MEDS: Butalbital/Acetaminophen/Caffeine 50/325/40 TAB PO (23:47)
[2020-06-03] VITALS (7 sets, daily range): BP systolic 134–151; BP diastolic 72–98; PULSE 82–97; RESP 14–18; TEMP 36.8; O2SAT 97
--- NOTE | 2020-06-03 06:15 | W.PM.OBNL1 ---
Date of service: 06/03/20 Time of Service: 06:15 Informed Consent Informed Consent: Induction of Labor and Risk,Benefits,Alternatives Discussed Assessment and Plan Assessment and plan (1) Post-dates : Status: Acute Assessment and plan: Category 1 tracing, latent phase Gestational HTN: BP remains elevated but improved to 142/74 MAT with suboxone 8 mg/2 mg SL, pt states the film makes her sick so will take her own tabs from home IOL via cervical ripening, primipara, Plan: pt to take medication from home but with full decator operator resume misoprostel IOL with breakfast Qualifiers: Post-term type: 40-42 weeks gestation Qualified Code(s): O48.0 - Post-term (2) Anxiety: Status: Chronic (3) Gestational hypertension: Status: Acute Objective Abnormal lab results 06/02/20 06/02/20 Range/Units 19:22 19:22 RBC 3.85 L (3.93-5.22) 10^6/uL Hct 35.6 L (36.0-46.0) % BUN 5 L (7-18) mg/dL Creatinine 0.44 L (0.55-1.02) mg/dL AST 13 L (15-37) U/L Alkaline Phosphatase 146 H (46-116) U/L Albumin 2.6 L (3.4-5.0) g/dL Temp Pulse Resp BP Pulse Ox 98.2 F 96 H 20 142/74 H 98 06/02/20 18:45 06/02/20 22:58 06/02/20 18:45 06/02/20 22:58 06/02/20 18:45 Laboratory Results WBC 7.96 10^3/uL (4.4-10.8) 06/02/20 19:22 RBC 3.85 10^6/uL (3.93-5.22) L 06/02/20 19:22 Hgb 12.0 g/dL (11.2-15.7) 06/02/20 19:22 Hct 35.6 % (36.0-46.0) L 06/02/20 19:22 MCV 92.5 fL (80-95) 06/02/20 19:22 MCH 31.2 pg (27.0-33.0) 06/02/20 19:22 MCHC 33.7 % (32.0-36.0) 06/02/20 19:22 RDW 13.2 % (11.7-14.6) 06/02/20 19:22 Plt Count 227 10^3/uL (130-400) 06/02/20 19:22 MPV 9.0 fL (8.0-11.0) 06/02/20 19:22 Sodium 136 mmol/L (136-145) 06/02/20 19:22 Potassium 3.5 mmol/L (3.5-5.1) 06/02/20 19:22 Chloride 104 mmol/L (98-107) 06/02/20 19:22 Carbon Dioxide 27.0 mmol/L (21.0-32.0) 06/02/20 19:22 Anion Gap 5.0 mmol/L (3-11) 06/02/20 19:22 BUN 5 mg/dL (7-18) L 06/02/20 19:22 Creatinine 0.44 mg/dL (0.55-1.02) L 06/02/20 19:22 Estimated GFR/1.73 m2 >= 60.00 (mL/min/1.73m2) 06/02/20 19:22 Glucose 89 mg/dL (74-106) 06/02/20 19:22 Uric Acid 3.8 mg/dL (2.6-6.0) 06/02/20 19:22 Calcium 8.7 mg/dL (8.5-10.1) 06/02/20 19:22 Total Bilirubin 0.3 mg/dL (0.2-1.0) 06/02/20 19:22 AST 13 U/L (15-37) L 06/02/20 19:22 ALT 17 U/L (14-59) 06/02/20 19:22 Alkaline Phosphatase 146 U/L (46-116) H 06/02/20 19:22 Total Protein 6.7 g/dL (6.4-8.2) 06/02/20 19:22 Albumin 2.6 g/dL (3.4-5.0) L 06/02/20 19:22 Ur Random Creatinine 94.33 mg/dL 06/02/20 19:07 U Random Total Protein 10.4 mg/dL 06/02/20 19:07 U [place] Prot/Creat Ratio 0.11 06/02/20 19:07 Urine Opiates Screen Negative (Negative) 06/02/20 19:07 Urine Methadone Screen Negative (Negative) 06/02/20 19:07 Ur Barbiturates Screen Negative (Negative) 06/02/20 19:07 Ur Tricyclics Screen Negative (Negative) 06/02/20 19:07 Ur Amphetamines Screen Negative (Negative) 06/02/20 19:07 U Benzodiazepines Scrn Negative (Negative) 06/02/20 19:07 Urine Cocaine Screen Negative (Negative) 06/02/20 19:07 Ur THC Screen Negative (Negative) 06/02/20 19:07 Patient ABO/Rh O Positive 06/02/20 19:22 Antibody Screen Negative 06/02/20 19:22 Vital Signs Reviewed: Yes Notable Details: All pre-e labs reviewed and are WNL Objective Narrative Objective Narrative: Pt rested through the night Subjective Patient Reports: No new Complaints Interval history since last seen: After first dose of misoprostel 50 mcg PO pt stated that she felt some minor cramping. Pt declined to take the 2nd dose at [place], preferring to rest/sleep for the night. CARDENAS continued, however despite tylenol given shortly after admission, was given 1 fioricet tab PO and pt has slept. Pt's went home to get her suboxone dosing information as what is in her record was incorrect per pt, and pt has declined medical records sharing with her MAT Provider. PA information provided by pt's states 2 tabs Bup 8mg and naloxone 2mg SL are given daily, med orders were adjusted accordingly. Pt then declined to take medication in film formulation saying it makes her sick, hospital pharmacy does not have an alternative format. RN let pt know we can have her take her own meds from home but nursing needs to check the label for correct dose. Pt became angry that the nurses have to supervise her medication administration, stating she will not resume misoprostel until 1 hour after she takes her own suboxone and feels better. left hospital again to get her medication. Results Hemoglobin/Hematocrit: Hgb 12.0 g/dL (11.2-15.7) 06/02/20 19:22 Hct 35.6 % (36.0-46.0) L 06/02/20 19:22 Abnormal Lab Findings: Abnormal Labs 06/02/20 06/02/20 19:22 19:22 RBC 3.85 L Hct 35.6 L BUN 5 L Creatinine 0.44 L AST 13 L Alkaline Phosphatase 146 H Albumin 2.6 L
--- NOTE | 2020-06-03 06:32 | NUR.NOTE ---
pt refused SL film suboxone, which is all the hospital has to offer. RN called pharmacy to confirm hospital does not have suboxone in pill form. pt states the film makes her sick and is sending home to get her own prescription. RN informed pt that RN will need to verify home prescription before she takes it, pt expressed frustration, anger and shut down. pt is refusing to continue with induction until she can take her medication and has asked to be left alone. pts spoke with RN and asked if we could give her an hour after she takes her medication and is feeling better to proceed. RN spoke with cnm about request, cnm confirmed we will wait an hour after pt takes medication to resume induction, rn informed pt and pt . Nursing Note:
[2020-06-03] MEDS: Omeprazole 20 MG CAPCR PO (08:14)
[2020-06-03] MEDS: Docusate Sodium 100 MG CAP PO (08:14)
--- NOTE | 2020-06-03 09:06 | PGE_ITS ---
Date of service: 06/03/20 Time of Service: 09:07 Informed Consent Informed Consent: Induction of Labor and Risk,Benefits,Alternatives Discussed Pelvic Exam Dilation: 0 Effacement (%): 50 station: -1 Cervix Position: posterior Consistency: soft Vaginal Exam Presentation: Cephalic Pooling: Negative Contractions Monitor Mode: Palpation (mild) Fetus A Heart Rate Baseline: 130 Presentation: Vertex Variability: Moderate (6-25 BPM) Categories: Category I FHR Rhythm: Regular Accelerations: 15 X 15 Decelerations: None Assessment and Plan Assessment and plan (1) Post-dates : Status: Acute Assessment and plan: Coping well with contractions. SVE performed and cervix posterior 50%, unable to reach os . Category 1 tracing. Comfort measures provided. Sleep was encouraged and options for rest were discussed. Will administer vistaril 50 mg PO and second dose of misoprostol. Anticipate Qualifiers: Post-term type: 40-42 weeks gestation Qualified Code(s): O4 8.0 - Post-term Objective Abnormal lab results 06/02/20 06/02/20 Range/Units 19:22 19:22 RBC 3.85 L (3.93-5.22) 10^6/uL Hct 35.6 L (36.0-46.0) % BUN 5 L (7-18) mg/dL Creatinine 0.44 L (0.55-1.02) mg/dL AST 13 L (15-37) U/L Alkaline Phosphatase 146 H (46-116) U/L Albumin 2.6 L (3.4-5.0) g/dL Temp Pulse Resp BP Pulse Ox 98.2 F 97 H 20 141/98 H 97 06/02/20 18:45 06/03/20 09:03 06/02/20 18:45 06/03/20 09:01 06/03/20 09:03 Laboratory Results WBC 7.96 10^3/uL (4.4-10.8) 06/02/20 19:22 RBC 3.85 10^6/uL (3.93-5.22) L 06/02/20 19:22 Hgb 12.0 g/dL (11.2-15.7) 06/02/20 19:22 Hct 35.6 % (36.0-46.0) L 06/02/20 19:22 MCV 92.5 fL (80-95) 06/02/20 19: MCH 31.2 pg (27.0-33.0) 06/02/20 19: MCHC 33.7 % (32.0-36.0) 06/02/20 19:22 RDW 13.2 % (11.7-14.6) 06/02/20 19:22 Plt Count 227 10^3/uL (130-400) 06/02/20 19: MPV 9.0 fL (8.0-11.0) 06/02/20 19:22 Sodium 136 mmol/L (136-145) 06/02/20 19: Potassium 3.5 mmol/L (3.5-5.1) 06/02/20: Chloride 104 mmol/L (98-107) 06/02/20: Carbon Dioxide 27.0 mmol/L (21.0-32.0) 06/02/20: Anion Gap 5.0 mmol/L (3-11) 06/02/20 19:22 BUN 5 mg/dL (7-18) L 06/02/20 19: Creatinine 0.44 mg/dL (0.55-1.02) L 06/02/20 19:22 Estimated GFR/1.73 m2 >= 60.00 (mL/min/1.73m2) 06/02/20 19: Glucose 89 mg/dL (74-106) 06/02/20 19: Uric Acid 3.8 mg/dL (2.6-6.0) 06/02/20: Calcium 8.7 mg/dL (8.5-10.1) 06/02/20 19: Total Bilirubin 0.3 mg/dL (0.2-1.0) 06/02/20 19: AST 13 U/L (15-37) L 06/02/20: ALT 17 U/L (14-59) 06/02/20 19:22 Alkaline Phosphatase 146 U/L (46-116) H 06/02/20 19:22 Total Protein 6.7 g/dL (6.4-8.2) 06/02/20 19:22 Albumin 2.6 g/dL (3.4-5.0) L 06/02/20 19:22 Ur Random Creatinine 94.33 mg/dL 06/02/20 19:07 U Random Total Protein 10.4 mg/dL 06/02/20 19:07 U [place] Prot/Creat Ratio 0.11 06/02/20 19:07 Urine Opiates Screen Negative (Negative) 06/02/20 19:07 Urine Methadone Screen Negative (Negative) 06/02/20 19:07 Ur Barbiturates Screen Negative (Negative) 06/02/20 19:07 Ur Tricyclics Screen Negative (Negative) 06/02/20 19:07 Bupropion Cancelled 06/02/20 20:42 Hydroxybupropion Cancelled 06/02/20 20:42 Ur Amphetamines Screen Negative (Negative) 06/02/20 19:07 U Benzodiazepines Scrn Negative (Negative) 06/02/20 19:07 Urine Cocaine Screen Negative (Negative) 06/02/20 19:07 Ur THC Screen Negative (Negative) 06/02/20 19:07 Reporting Documentation Cancelled 06/02/20 20:42 Reporting Documentation Cancelled 06/02/20 20:42 Patient ABO/Rh O Positive 06/02/20 19:22 Antibody Screen Negative 06/02/20 19:22 Subjective Patient Reports: No new Complaints Interval history since last seen: Juan took a bath and was feeling very tired after bath and reports that she did not sleep last night. Juan declines cord blood testing after delivery fro drugs of abuse. This was discussed with jessica May. She declined second dose of misoprostol earlier due to nausea and desire to take her own suboxone because she reports that she becomes nauseated with oral film which the hospital stocks. Her partner went home and got her oral medication and she is feeling better but still reports nausea. Results Hemoglobin/Hematocrit: Hgb 12.0 g/dL (11.2-15.7) 06/02/20 19:22 Hct 35.6 % (36.0-46.0) L 06/02/20 19:22 Abnormal Lab Findings: Abnormal Labs 06/02/20 06/02/20 19:22 19:22 RBC 3.85 L Hct 35.6 L BUN 5 L Creatinine 0.44 L AST 13 L Alkaline Phosphatase 146 H Albumin 2.6 L
[2020-06-03] MEDS: hydrOXYzine PAMOATE 25 MG CAP 50 MG PO (09:14)
[2020-06-03] MEDS: miSOPROStol 50 MCG TAB PO ×2 (09:14→21:15)
[2020-06-03 14:09] LABS: COVID-19 RT-PCR UVMMC Result Negative (Negative)
[2020-06-03] MEDS: miSOPROStol 50 MCG TAB (14:46)
--- NOTE | 2020-06-03 20:32 | NUR.NOTE ---
pt and feeling very restless at this time. pt and asked RN if there was a possibility that pt could go outside and get some fresh air or possibly go home for the night and resume induction in the morning. RN spoke with Marcy Calvillo CNM about pt requests. After consulting with Dr. Christiansen, Marcy Calvillo CNM informed RN she could offer pt the option of going home for the night and continuing induction in the morning, or pt could go for a walk and resume induction with another dose of miso. Pt and opted to go for a walk and RN will administer miso per protocol when pt returns. Marcy Barron CNM aware of plan. Nursing Note:
[2020-06-03] MEDS: Zolpidem 5 MG TAB 10 MG PO (22:56)
--- NOTE | 2020-06-04 00:06 | PGE_ITS ---
Date of service: 06/03/20 Time of Service: 23:00 Informed Consent Informed Consent: Induction of Labor and Risk,Benefits,Alternatives Discussed Pelvic Exam Dilation: 0 Effacement (%): 50 station: -1 Consistency: soft Vaginal Exam Presentation: Cephalic Pooling: Negative Contractions Monitor Mode: Palpation Contraction Frequency(min): mild Intensity: Mild Fetus A Monitor: External (US) Heart Rate Baseline: 130 Presentation: Vertex Variability: Moderate (6-25 BPM) Categories: Category I FHR Rhythm: Regular Characteristics: Normal Accelerations: 15 X 15 Amniotic Membrane Status: Intact Assessment and Plan Assessment and plan (1) Post-dates : Status: Acute Assessment and plan: Coping well with contractions. Category 1 tracing. Comfort measures provided. Took ambien for sleep. Will monitor while awake. Anticipate Qualifiers: Post-term type: 40-42 weeks gestation Qualified Code(s): O48.0 - Post-term Objective Temp Pulse Resp BP Pulse Ox 98.2 F 86 16 151/82 H 97 06/03/20 21:16 06/03/20 21:16 06/03/20 21:16 06/03/20 21:16 06/03/20 09:10 Laboratory Results WBC 7.96 10^3/uL (4.4-10.8) 06/02/20 19: RBC 3.85 10^6/uL (3.93-5.22) L 06/02/20 19:22 Hgb 12.0 g/dL (11.2-15.7) 06/02/20 19: Hct 35.6 % (36.0-46.0) L 06/02/20 19: MCV 92.5 fL (80-95) 06/02/20 19:22 MCH 31.2 pg (27.0-33.0) 06/02/20 19: MCHC 33.7 % (32.0-36.0) 06/02/20 19:22 RDW 13.2 % (11.7-14.6) 06/02/20 19:22 Plt Count 227 10^3/uL (130-400) 06/02/20 19:22 MPV 9.0 fL (8.0-11.0) 06/02/20 19:22 Sodium 136 mmol/L (136-145) 09/25/20 19:22 Potassium 3.5 mmol/L (3.5-5.1) 06/02/20 19:22 Chloride 104 mmol/L (98-107) 06/02/20 19:22 Carbon Dioxide 27.0 mmol/L (21.0-32.0) 06/02/20 19:22 Anion Gap 5.0 mmol/L (3-11) 06/02/20 19:22 BUN 5 mg/dL (7-18) L 06/02/20 19:22 Creatinine 0.44 mg/dL (0.55-1.02) L 06/02/20 19:22 Estimated GFR/1.73 m2 >= 60.00 (mL/min/1.73m2) 06/02/20 19:22 Glucose 89 mg/dL (74-106) 06/02/20 19:22 Uric Acid 3.8 mg/dL (2.6-6.0) 06/02/20 19:22 Calcium 8.7 mg/dL (8.5-10.1) 06/02/20 19:22 Total Bilirubin 0.3 mg/dL (0.2-1.0) 06/02/20 19:22 AST 13 U/L (15-37) L 06/02/20 19:22 ALT 17 U/L (14-59) 06/02/20 19:22 Alkaline Phosphatase 146 U/L (46-116) H 06/02/20 19:22 Total Protein 6.7 g/dL (6.4-8.2) 06/02/20 19:22 Albumin 2.6 g/dL (3.4-5.0) L 06/02/20 19:22 Ur Random Creatinine 94.33 mg/dL 06/02/20 19:07 U Random Total Protein 10.4 mg/dL 06/02/20 19:07 U [place] Prot/Creat Ratio 0.11 06/02/20 19:07 Urine Opiates Screen Negative (Negative) 06/02/20 19:07 Urine Methadone Screen Negative (Negative) 06/02/20 19:07 Ur Barbiturates Screen Negative (Negative) 06/02/20 19:07 Ur Tricyclics Screen Negative (Negative) 06/02/20 19:07 Bupropion Cancelled 06/02/20 20:42 Hydroxybupropion Cancelled 06/02/20 20:42 Ur Amphetamines Screen Negative (Negative) 06/02/20 19:07 U Benzodiazepines Scrn Negative (Negative) 06/02/20 19:07 Urine Cocaine Screen Negative (Negative) 06/02/20 19:07 Ur THC Screen Negative (Negative) 06/02/20 19:07 COVID-19 PCR Negative (Negative) 06/02/20 20:00 Nasopharyn COVID-19 PCR Not Applicable 06/02/20 20:00 Ref Test Perform Site [place] [facility] 06/02/20 20:00 Reporting Documentation Cancelled 06/02/20 20:42 Reporting Documentation Cancelled 06/02/20 20:42 Patient ABO/Rh O Positive 06/02/20 19:22 Antibody Screen Negative 06/02/20 19:22 Subjective Interval history since last seen: Juan received 3 doses of misoprostol. She was complaining of needing to go outside. Her contractions are mild. She was feeling 'stir crazy' from being at the [facility] for 24 hours. I discussed her status with Dr. Mary Alice Madrid. Juan was offered to return home and try to sleep there. She decided after taking a walk that she would prefer to stay at the center and try another dose of misoprostol. B.P 130 - 140/80-90 Results Hemoglobin/Hematocrit: Hgb 12.0 g/dL (11.2-15.7) 06/02/20 19:22 Hct 35.6 % (36.0-46.0) L 06/02/20 19:22 Abnormal Lab Findings: Abnormal Labs 06/02/20 06/02/20 19:22 19:22 RBC 3.85 L Hct 35.6 L BUN 5 L Creatinine 0.44 L AST 13 L Alkaline Phosphatase 146 H Albumin 2.6 L
[2020-06-04] MEDS: miSOPROStol 25 MCG TAB (06:30)
[2020-06-04 06:35] VITALS: BP 140/86; PULSE 86
--- NOTE | 2020-06-04 07:00 | PGE_ITS ---
Date of service: 06/04/20 Time of Service: 07:00 Informed Consent Informed Consent: Induction of Labor and Risk,Benefits,Alternatives Discussed Pelvic Exam Dilation: 1.5 Effacement (%): 70 station: -1 Cervix Position: mid Consistency: soft Vaginal Exam Presentation: Vertex Contractions Monitor Mode: External Intensity: Mild Fetus A Monitor: External (US) Heart Rate Baseline: 125 Presentation: Vertex Variability: Moderate (6-25 BPM) Categories: Category I FHR Rhythm: Regular Accelerations: 15 X 15 Decelerations: None Assessment and Plan Assessment and plan (1) Post-dates : Status: Acute Assessment and plan: misoprostol 25 mcg vaginal placed. Comfort measures. Anticipate . Qualifiers: Post-term type: 40-42 weeks gestation Qualified Code(s): O48.0 - Post-term Objective Temp Pulse Resp BP Pulse Ox 98.2 F 86 16 140/86 97 06/03/20 21:16 06/04/20 06:35 06/03/20 21:16 06/04/20 06:35 06/03/20 09:10 Laboratory Results WBC 7.96 10^3/uL (4.4-10.8) 06/02/20 19:22 RBC 3.85 10^6/uL (3.93-5.22) L 06/02/20 19:22 Hgb 12.0 g/dL (11.2-15.7) 06/02/20 19:22 Hct 35.6 % (36.0-46.0) L 06/02/20 19:22 MCV 92.5 fL (80-95) 06/02/20 19:22 MCH 31.2 pg (27.0-33.0) 06/02/20 19:22 MCHC 33.7 % (32.0-36.0) 06/02/20 19:22 RDW 13.2 % (11.7-14.6) 06/02/20 19:22 Plt Count 227 10^3/uL (130-400) 06/02/20 19:22 MPV 9.0 fL (8.0-11.0) 06/02/20 19:22 Sodium 136 mmol/L (136-145) 06/02/20 19:22 Potassium 3.5 mmol/L (3.5-5.1) 06/02/20 19:22 Chloride 104 mmol/L (98-107) 06/02/20 19:22 Carbon Dioxide 27.0 mmol/L (21.0-32.0) 06/02/20 19:22 Anion Gap 5.0 mmol/L (3-11) 06/02/20 19:22 BUN 5 mg/dL (7-18) L 06/02/20 19:22 Creatinine 0.44 mg/dL (0.55-1.02) L 06/02/20 19:22 Estimated GFR/1.73 m2 >= 60.00 (mL/min/1.73m2) 06/02/20 19:22 Glucose 89 mg/dL (74-106) 06/02/20 19:22 Uric Acid 3.8 mg/dL (2.6-6.0) 06/02/20 19:22 Calcium 8.7 mg/dL (8.5-10.1) 06/02/20 19:22 Total Bilirubin 0.3 mg/dL (0.2-1.0) 06/02/20 19:22 AST 13 U/L (15-37) L 06/02/20 19:22 ALT 17 U/L (14-59) 06/02/20 19:22 Alkaline Phosphatase 146 U/L (46-116) H 06/02/20 19:22 Total Protein 6.7 g/dL (6.4-8.2) 06/02/20 19:22 Albumin 2.6 g/dL (3.4-5.0) L 06/02/20 19:22 Ur Random Creatinine 94.33 mg/dL 06/02/20 19:07 U Random Total Protein 10.4 mg/dL 06/02/20 19:07 U [place] Prot/Creat Ratio 0.11 06/02/20 19:07 Urine Opiates Screen Negative (Negative) 06/02/20 19:07 Urine Methadone Screen Negative (Negative) 06/02/20 19:07 Ur Barbiturates Screen Negative (Negative) 06/02/20 19:07 Ur Tricyclics Screen Negative (Negative) 06/02/20 19:07 Bupropion Cancelled 06/02/20 20:42 Hydroxybupropion Cancelled 06/02/20 20:42 Ur Amphetamines Screen Negative (Negative) 06/02/20 19:07 U Benzodiazepines Scrn Negative (Negative) 06/02/20 19:07 Urine Cocaine Screen Negative (Negative) 06/02/20 19:07 Ur THC Screen Negative (Negative) 06/02/20 19:07 COVID-19 PCR Negative (Negative) 06/02/20 20:00 Nasopharyn COVID-19 PCR Not Applicable 06/02/20 20:00 Ref Test Perform Site [place] [facility] 06/02/20 20:00 Reporting Documentation Cancelled 06/02/20 20:42 Reporting Documentation Cancelled 06/02/20 20:42 Patient ABO/Rh O Positive 06/02/20 19:22 Antibody Screen Negative 06/02/20 19:22 Vital Signs Reviewed: Yes Subjective Patient Reports: No new Complaints Interval history since last seen: slept well with ambien and VE by RN. Results Hemoglobin/Hematocrit: Hgb 12.0 g/dL (11.2-15.7) 06/02/20 19:22 Hct 35.6 % (36.0-46.0) L 06/02/20 19:22 Abnormal Lab Findings: Abnormal Labs 06/02/20 06/02/20 19:22 19:22 RBC 3.85 L Hct 35.6 L BUN 5 L Creatinine 0.44 L AST 13 L Alkaline Phosphatase 146 H Albumin 2.6 L
[2020-06-04] MEDS: Oxytocin/Normal Saline 30 UNIT/500 ML BAG 2 UNITS IV (14:00)
[2020-06-04] MEDS: Lactated Ringers 1,000 ML 125 ML IV ×2 (14:04→21:00)
[2020-06-04] MEDS: Normal Saline Flush 10 ML SYR IVP (14:06)
[2020-06-04 14:07] VITALS: BP 146/84; PULSE 82; RESP 16; TEMP 36.8; O2SAT 98
[2020-06-04 19:01] VITALS: BP 140/80; PULSE 86; RESP 18; TEMP 36.6; O2SAT 99
--- NOTE | 2020-06-04 21:48 | W.PM.OBNL1 ---
Date of service: 06/04/20 Time of Service: 21:48 Informed Consent Informed Consent: Induction of Labor and Risk,Benefits,Alternatives Discussed Pelvic Exam Comments: Exam deferred as she is in the tub. Contractions Monitor Mode: External Intensity: Mild/Moderate Fetus A Monitor: External (US) Presentation: Cephalic Variability: Moderate (6-25 BPM) Categories: Category I FHR Rhythm: Regular Characteristics: Normal Accelerations: 15 X 15 Decelerations: None Amniotic Membrane Status: Ruptured Rupture Method: Spontaneous Amniotic Fluid: Clear Assessment and Plan Assessment and plan (1) Post-dates : Status: Acute Assessment and plan: Continue to provide support and encourage relaxation. Pain relief options discussed with nicole and she is aware. Anticipate , Qualifiers: Post-term type: 40-42 weeks gestation Qualified Code(s): O48.0 - Post-term Objective Temp Pulse Resp BP Pulse Ox 97.9 F 86 18 140/80 99 06/04/20 19:01 06/04/20 19:01 06/04/20 19:01 06/04/20 19:01 06/04/20 19:01 Laboratory Results WBC 7.96 10^3/uL (4.4-10.8) 06/02/20 19: RBC 3.85 10^6/uL (3.93-5.22) L 06/02/20 19:22 Hgb 12.0 g/dL (11.2-15.7) 06/02/20 19:22 Hct 35.6 % (36.0-46.0) L 06/02/20 19:22 MCV 92.5 fL (80-95) 06/02/20 19:22 MCH 31.2 pg (27.0-33.0) 06/02/20 19:22 MCHC 33.7 % (32.0-36.0) 06/02/20 19:22 RDW 13.2 % (11.7-14.6) 06/02/20 19:22 Plt Count 227 10^3/uL (130-400) 06/02/20 19:22 MPV 9.0 fL (8.0-11.0) 06/02/20 19:22 Sodium 136 mmol/L (136-145) 06/02/20 19:22 Potassium 3.5 mmol/L (3.5-5.1) 06/02/20 19:22 Chloride 104 mmol/L (98-107) 06/02/20 19:22 Carbon Dioxide 27.0 mmol/L (21.0-32.0) 06/02/20 19:22 Anion Gap 5.0 mmol/L (3-11) 06/02/20 19:22 BUN 5 mg/dL (7-18) L 06/02/20 19:22 Creatinine 0.44 mg/dL (0.55-1.02) L 06/02/20 19:22 Estimated GFR/1.73 m2 >= 60.00 (mL/min/1.73m2) 06/02/20 19:22 Glucose 89 mg/dL (74-106) 06/02/20 19:22 Uric Acid 3.8 mg/dL (2.6-6.0) 06/02/20 19:22 Calcium 8.7 mg/dL (8.5-10.1) 06/02/20 19:22 Total Bilirubin 0.3 mg/dL (0.2-1.0) 06/02/20 19:22 AST 13 U/L (15-37) L 06/02/20 19:22 ALT 17 U/L (14-59) 06/02/20 19:22 Alkaline Phosphatase 146 U/L (46-116) H 06/02/20 19:22 Total Protein 6.7 g/dL (6.4-8.2) 06/02/20 19:22 Albumin 2.6 g/dL (3.4-5.0) L 06/02/20 19:22 Ur Random Creatinine 94.33 mg/dL 06/02/20 19:07 U Random Total Protein 10.4 mg/dL 06/02/20 19:07 U [place] Prot/Creat Ratio 0.11 06/02/20 19:07 Urine Opiates Screen Negative (Negative) 06/02/20 19:07 Urine Methadone Screen Negative (Negative) 06/02/20 19:07 Ur Barbiturates Screen Negative (Negative) 06/02/20 19:07 Ur Tricyclics Screen Negative (Negative) 06/02/20 19:07 Bupropion Cancelled 06/02/20 20:42 Hydroxybupropion Cancelled 06/02/20 20:42 Ur Amphetamines Screen Negative (Negative) 06/02/20 19:07 U Benzodiazepines Scrn Negative (Negative) 06/02/20 19:07 Urine Cocaine Screen Negative (Negative) 06/02/20 19:07 Ur THC Screen Negative (Negative) 06/02/20 19:07 COVID-19 PCR Negative (Negative) 06/02/20 20:00 [place] COVID-19 PCR Not Applicable 06/02/20 20:00 Ref Test Perform Site [place] [facility] lab 06/02/20 20:00 Reporting Documentation Cancelled 06/02/20 20:42 Reporting Documentation Cancelled 06/02/20 20:42 Patient ABO/Rh O Positive 06/02/20 19:22 Antibody Screen Negative 06/02/20 19:22 Vital Signs Reviewed: Yes Subjective Patient Reports: New Complaints Interval history since last seen: Pitocin at 10 mu/min. SROM at 2004 clear fluid. She began experiencing strong regular contractions and requested to use the tub. Poor tracing due to telemetry monitoring and Nicole was extremely frustrated with attempts to adjust the monitor. She requested to be left alone and is having difficulty coping with contraction pain. Suggestions for pain relief were offered but Nicole became angry at the discussion of other pain relief options. The monitor was adjusted and Nicole is currently holding the monitor between contractions and it is tracing and FHR is category 1. Results Hemoglobin/Hematocrit: Hgb 12.0 g/dL (11.2-15.7) 06/02/20 19:22 Hct 35.6 % (36.0-46.0) L 06/02/20 19:22 Abnormal Lab Findings: Abnormal Labs 06/02/20 06/02/20 19:22 19:22 RBC 3.85 L Hct 35.6 L BUN 5 L Creatinine 0.44 L AST 13 L Alkaline Phosphatase 146 H Albumin 2.6 L
[2020-06-04] MEDS: FentaNYL/ROPIvacaine 2 mcg/ml and 0.1% 200 ML CADD Cassette EP (23:38)
[2020-06-04 23:58] VITALS: BP 183/104; PULSE 108
[2020-06-05] VITALS (38 sets, daily range): BP systolic 123–174; BP diastolic 65–118; PULSE 78–146; RESP 18–20; TEMP 36.6–36.9; O2SAT 98–100
[2020-06-05] MEDS: Lactated Ringers 500 ML IV
--- NOTE | 2020-06-05 00:42 | W.PM.OBNL1 ---
Date of service: 06/05/20 Time of Service: 00:42 Informed Consent Informed Consent: Induction of Labor and Risk,Benefits,Alternatives Discussed Pelvic Exam Dilation: 1 Effacement (%): 70 station: -1 Cervix Position: mid Consistency: soft Vaginal Exam Presentation: Vertex Pooling: Positive Contractions Monitor Mode: External Intensity: Mild/Moderate Fetus A Monitor: External (US) Presentation: Vertex Variability: Moderate (6-25 BPM) Categories: Category I FHR Rhythm: Regular Accelerations: 15 X 15 Decelerations: None Assessment and Plan Assessment and plan (1) Post-dates : Status: Acute Assessment and plan: Rest was encouraged. Reassess for cervical change in 2 hours. Discussed normal process of cervical ripening. Will restart Pitocin at 6 mu/min. Anticipate vaginal delivery. Objective Temp Pulse Resp BP Pulse Ox 97.9 F 96 H 18 162/118 H 98 06/04/20 19:01 06/05/20 00:39 06/04/20 19:01 06/05/20 00:39 06/05/20 00:22 Laboratory Results WBC 7.96 10^3/uL (4.4-10.8) 06/02/20 19:22 RBC 3.85 10^6/uL (3.93-5.22) L 06/02/20 19:22 Hgb 12.0 g/dL (11.2-15.7) 06/02/20 19:22 Hct 35.6 % (36.0-46.0) L 06/02/20 19:22 MCV 92.5 fL (80-95) 06/02/20 19:22 MCH 31.2 pg (27.0-33.0) 06/02/20 19:22 MCHC 33.7 % (32.0-36.0) 06/02/20 19:22 RDW 13.2 % (11.7-14.6) 06/02/20 19:22 Plt Count 227 10^3/uL (130-400) 06/02/20 19:22 MPV 9.0 fL (8.0-11.0) 06/02/20 19:22 Sodium 136 mmol/L (136-145) 06/02/20 19:22 Potassium 3.5 mmol/L (3.5-5.1) 06/02/20 19:22 Chloride 104 mmol/L (98-107) 06/02/20 19:22 Carbon Dioxide 27.0 mmol/L (21.0-32.0) 06/02/20 19:22 Anion Gap 5.0 mmol/L (3-11) 06/02/20 19:22 BUN 5 mg/dL (7-18) L 06/02/20 19:22 Creatinine 0.44 mg/dL (0.55-1.02) L 06/02/20 19:22 Estimated GFR/1.73 m2 >= 60.00 (mL/min/1.73m2) 06/02/20 19:22 Glucose 89 mg/dL (74-106) 06/02/20 19:22 Uric Acid 3.8 mg/dL (2.6-6.0) 06/02/20 19:22 Calcium 8.7 mg/dL (8.5-10.1) 06/02/20 19:22 Total Bilirubin 0.3 mg/dL (0.2-1.0) 06/02/20 19:22 AST 13 U/L (15-37) L 06/02/20 19:22 ALT 17 U/L (14-59) 06/02/20 19:22 Alkaline Phosphatase 146 U/L (46-116) H 06/02/20 19:22 Total Protein 6.7 g/dL (6.4-8.2) 06/02/20 19:22 Albumin 2.6 g/dL (3.4-5.0) L 06/02/20 19:22 Ur Random Creatinine 94.33 mg/dL 06/02/20 19:07 U Random Total Protein 10.4 mg/dL 06/02/20 19:07 U [place] Prot/Creat Ratio 0.11 06/02/20 19:07 Urine Opiates Screen Negative (Negative) 06/02/20 19:07 Urine Methadone Screen Negative (Negative) 06/02/20 19:07 Ur Barbiturates Screen Negative (Negative) 06/02/20 19:07 Ur Tricyclics Screen Negative (Negative) 06/02/20 19:07 Bupropion Cancelled 06/02/20 20:42 Hydroxybupropion Cancelled 06/02/20 20:42 Ur Amphetamines Screen Negative (Negative) 09/25/20 19:07 U Benzodiazepines Scrn Negative (Negative) 06/02/20 19:07 Urine Cocaine Screen Negative (Negative) 06/02/20 19:07 Ur THC Screen Negative (Negative) 06/02/20 19:07 COVID-19 PCR Negative (Negative) 06/02/20 20:00 Nasopharyn COVID-19 PCR Not Applicable 06/02/20 20:00 Ref Test Perform Site [place] [facility] lab 06/02/20 20:00 Reporting Documentation Cancelled 06/02/20 20:42 Reporting Documentation Cancelled 06/02/20 20:42 Patient ABO/Rh O Positive 06/02/20 19:22 Antibody Screen Negative 06/02/20 19:22 Subjective Patient Reports: No new Complaints Interval history since last seen: Juan used nitrous oxide for pain relief with good effect. She complains of back pain. She also received a sterile water injection with good effect. She used the tub and requested an epidural. She requested that the pitocin be turned off until after epidural was placed as she was having a difficult time coping with the contractions. She had previously declined SVE but consented to SVE after epidural was placed. Juan became very angry regarding lack of progress. B.P has been 140s/80-90s. B.P. after the epidural was 160/90s when patient was upset. Leaking large amounts of clear fluid. Results Hemoglobin/Hematocrit: Hgb 12.0 g/dL (11.2-15.7) 06/02/20 19:22 Hct 35.6 % (36.0-46.0) L 06/02/20 19:22 Abnormal Lab Findings: Abnormal Labs 06/02/20 06/02/20 19:22 19:22 RBC 3.85 L Hct 35.6 L BUN 5 L Creatinine 0.44 L AST 13 L Alkaline Phosphatase 146 H Albumin 2.6 L
--- NOTE | 2020-06-05 06:48 | W.PM.OBNL1 ---
Date of service: 06/05/20 Time of Service: 06:48 Informed Consent Informed Consent: Induction of Labor and Risk,Benefits,Alternatives Discussed Pelvic Exam Dilation: 2 Effacement (%): 80 station: -1 Cervix Position: mid Consistency: soft Vaginal Exam Presentation: Vertex Pooling: Positive Contractions Monitor Mode: External Contraction Frequency(min): evry 3 min Contraction Duration(sec): 50-60 Intensity: Mild/Moderate Fetus A Monitor: Internal (FSE) Presentation: Cephalic Variability: Moderate (6-25 BPM) Categories: Category I FHR Rhythm: Regular Accelerations: 15 X 15 Decelerations: Variable Assessment and Plan Assessment and plan (1) Post-dates : Status: Acute Assessment and plan: Continue pitocin. reassess in 2-3 hours. Anticipate . Comfort measures. Will Consult with MD coming on this morning regarding patient's status. Qualifiers: Post-term type: 40-42 weeks gestation Qualified Code(s): O48.0 - Post-term Objective Temp Pulse Resp BP Pulse Ox 97.9 F 78 18 140/88 98 06/05/20 06:12 06/05/20 06:12 06/05/20 06:12 06/05/20 06:12 06/05/20 00:22 Laboratory Results WBC 7.96 10^3/uL (4.4-10.8) 06/02/20 19: RBC 3.85 10^6/uL (3.93-5.22) L 06/02/20 19:22 Hgb 12.0 g/dL (11.2-15.7) 06/02/20 19:22 Hct 35.6 % (36.0-46.0) L 06/02/20 19:22 MCV 92.5 fL (80-95) 06/02/20 19:22 MCH 31.2 pg (27.0-33.0) 06/02/20 19: MCHC 33.7 % (32.0-36.0) 06/02/20 19:22 RDW 13.2 % (11.7-14.6) 06/02/20 19:22 Plt Count 227 10^3/uL (130-400) 06/02/20 19:22 MPV 9.0 fL (8.0-11.0) 06/02/20 19:22 Sodium 136 mmol/L (136-145) 06/02/20 19:22 Potassium 3.5 mmol/L (3.5-5.1) 06/02/20 19:22 Chloride 104 mmol/L (98-107) 06/02/20 19:22 Carbon Dioxide 27.0 mmol/L (21.0-32.0) 06/02/20 19:22 Anion Gap 5.0 mmol/L (3-11) 06/02/20 19:22 BUN 5 mg/dL (7-18) L 06/02/20 19:22 Creatinine 0.44 mg/dL (0.55-1.02) L 06/02/20 19:22 Estimated GFR/1.73 m2 >= 60.00 (mL/min/1.73m2) 06/02/20 19:22 Glucose 89 mg/dL (74-106) 06/02/20 19:22 Uric Acid 3.8 mg/dL (2.6-6.0) 06/02/20 19:22 Calcium 8.7 mg/dL (8.5-10.1) 06/02/20 19:22 Total Bilirubin 0.3 mg/dL (0.2-1.0) 06/02/20 19:22 AST 13 U/L (15-37) L 06/02/20 19:22 ALT 17 U/L (14-59) 06/02/20 19:22 Alkaline Phosphatase 146 U/L (46-116) H 06/02/20 19:22 Total Protein 6.7 g/dL (6.4-8.2) 06/02/20 19:22 Albumin 2.6 g/dL (3.4-5.0) L 06/02/20 19:22 Ur Random Creatinine 94.33 mg/dL 06/02/20 19:07 U Random Total Protein 10.4 mg/dL 06/02/20 19:07 U [place] Prot/Creat Ratio 0.11 06/02/20 19:07 Urine Opiates Screen Negative (Negative) 06/02/20 19:07 Urine Methadone Screen Negative (Negative) 06/02/20 19:07 Ur Barbiturates Screen Negative (Negative) 06/02/20 19:07 Ur Tricyclics Screen Negative (Negative) 06/02/20 19:07 Bupropion Cancelled 06/02/20 20:42 Hydroxybupropion Cancelled 06/02/20 20:42 Ur Amphetamines Screen Negative (Negative) 06/02/20 19:07 U Benzodiazepines Scrn Negative (Negative) 06/02/20 19:07 Urine Cocaine Screen Negative (Negative) 06/02/20 19:07 Ur THC Screen Negative (Negative) 06/02/20 19:07 COVID-19 PCR Negative (Negative) 06/02/20 20:00 Nasopharyn COVID-19 PCR Not Applicable 06/02/20 20:00 Ref Test Perform Site [place] [facility] lab 06/02/20 20:00 Reporting Documentation Cancelled 06/02/20 20:42 Reporting Documentation Cancelled 06/02/20 20:42 Patient ABO/Rh O Positive 06/02/20 19:22 Antibody Screen Negative 06/02/20 19:22 Vital Signs Reviewed: Yes Subjective Patient Reports: No new Complaints Interval history since last seen: Juan got up to the commode and voided well x 2. She has been sleeping well and is comfortable. B.P. 140/80s. Results Hemoglobin/Hematocrit: Hgb 12.0 g/dL (11.2-15.7) 06/02/20 19:22 Hct 35.6 % (36.0-46.0) L 06/02/20 19:22 Abnormal Lab Findings: Abnormal Labs 06/02/20 06/02/20 19:22 19:22 RBC 3.85 L Hct 35.6 L BUN 5 L Creatinine 0.44 L AST 13 L Alkaline Phosphatase 146 H Albumin 2.6 L
[2020-06-05] MEDS: Lactated Ringers 1,000 ML 125 ML IV (07:41)
--- NOTE | 2020-06-05 08:45 | W.OBCONSULT ---
Date of service: 06/05/20 Time of Service: 08:45 Assessment and Plan Assessment and plan (1) Post-dates : Status: Acute Assessment and plan: Continue augmentation of labor. Available for midwives if needed. Qualifiers: Post-term type: 40-42 weeks gestation Qualified Code(s): O48.0 - Post-term (2) Gestational hypertension: Status: Acute (3) Medication addiction in remission: Status: Acute (4) High BMI: Status: Acute History of Present Illness History of Present Illness Chief Complaint: Postdates , labor induction Narrative: Kindly asked to see the patient by the nurse seismic prospecting observer helper service. This is a been a patient in their care throughout her . is complicated by medication assisted therapy program. She was seen for surveillance at 41 weeks with a nonstress test that was reactive borderline amniotic fluid index and elevated blood pressure. For that reason patient was kept for labor induction. This process has been slow to this point. She has received cervical ripening with misoprostol both orally and vaginally and had spontaneous rupture of membranes approximately 12 hours ago. Fluid is clear. She did receive epidural for pain control. Most recent cervical exam this morning was approximately 2 cm 90% effaced with a category 1 heart rate tracing. I the opportunity to meet the patient and review her chart. At this point, we will continue labor augmentation with Pitocin. She is comfortable with her epidural. We will monitor her labor progress. Consults Consult date: 06/05/20 Requesting physician: Cassy Calvillo Review of Systems Narrative: Patient is alert oriented comfortable. She states that she is fatigued, tired, and wishes to nap at this point. She denies significant pain, shortness of breath. Overall, frustrated with the slow progress of the labor induction. Reassurance was given. 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 Date GA/Weeks # Outcome Route Wgt Sex Labor Lgth Anesthesia Location Prov Complic 03/16/09 11 Delivery Date: 03/16/09 took miso for home SAB, has been very traumatized by the experience Myah May Exam Narrative Exam Narrative: Patient is alert and oriented, no acute distress. Comfortable with her epidural and seated upright. heart rate is a category 1 strip with contractions approximately every 3 minutes. Pitocin currently at 12 milliunits. Other: Most recent cervical examination per nurse seismic prospecting observer helper is 2, 90%, vertex presentation Results Last Vital Signs Temp 98.2 F 06/05/20 07:45 Pulse 78 06/05/20 07:45 Resp 18 06/05/20 07:45 BP 138/82 06/05/20 07:45 Pulse Ox 98 06/05/20 00:22 Labs Result diagrams: 06/02/20 19:22 06/02/20 19:22
--- NOTE | 2020-06-05 11:30 | PGE_ITS ---
Date of service: 06/05/20 Time of Service: 11:30 Informed Consent Informed Consent: Induction of Labor and Risk,Benefits,Alternatives Discussed Assessment and Plan Assessment and plan (1) Encounter for elective induction of labor: Status: Acute Assessment and plan: Assess for cervical change when patient agrees. 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 (2) Post-dates : Status: Acute Qualifiers: Post-term type: 40-42 weeks gestation Qualified Code(s): O48.0 - Post-term (3) Gestational hypertension: Status: Acute Objective Temp Pulse Resp BP Pulse Ox 98.1 F 80 20 150/90 H 98 06/05/20 11:23 06/05/20 11:23 06/05/20 11:23 06/05/20 11:23 06/05/20 00:22 Laboratory Results WBC 7.96 10^3/uL (4.4-10.8) 06/02/20 19:22 RBC 3.85 10^6/uL (3.93-5.22) L 06/02/20 19:22 Hgb 12.0 g/dL (11.2-15.7) 06/02/20 19:22 Hct 35.6 % (36.0-46.0) L 06/02/20 19:22 MCV 92.5 fL (80-95) 06/02/20 19:22 MCH 31.2 pg (27.0-33.0) 06/02/20 19:22 MCHC 33.7 % (32.0-36.0) 06/02/20 19:22 RDW 13.2 % (11.7-14.6) 06/02/20 19:22 Plt Count 227 10^3/uL (130-400) 06/02/20 19:22 MPV 9.0 fL (8.0-11.0) 06/02/20 19:22 Sodium 136 mmol/L (136-145) 06/02/20 19:22 Potassium 3.5 mmol/L (3.5-5.1) 06/02/20 19:22 Chloride 104 mmol/L (98-107) 06/02/20 19:22 Carbon Dioxide 27.0 mmol/L (21.0-32.0) 06/02/20 19:22 Anion Gap 5.0 mmol/L (3-11) 06/02/20 19:22 BUN 5 mg/dL (7-18) L 06/02/20 19:22 Creatinine 0.44 mg/dL (0.55-1.02) L 06/02/20 19:22 Estimated GFR/1.73 m2 >= 60.00 (mL/min/1.73m2) 06/02/20 19:22 Glucose 89 mg/dL (74-106) 06/02/20 19:22 Uric Acid 3.8 mg/dL (2.6-6.0) 06/02/20 19:22 Calcium 8.7 mg/dL (8.5-10.1) 06/02/20 19:22 Total Bilirubin 0.3 mg/dL (0.2-1.0) 06/02/20 19:22 AST 13 U/L (15-37) L 06/02/20 19:22 ALT 17 U/L (14-59) 06/02/20 19:22 Alkaline Phosphatase 146 U/L (46-116) H 06/02/20 19:22 Total Protein 6.7 g/dL (6.4-8.2) 06/02/20 19:22 Albumin 2.6 g/dL (3.4-5.0) L 06/02/20 19:22 Ur Random Creatinine 94.33 mg/dL 06/02/20 19:07 U Random Total Protein 10.4 mg/dL 06/02/20 19:07 U [place] Prot/Creat Ratio 0.11 06/02/20 19:07 Urine Opiates Screen Negative (Negative) 06/02/20 19:07 Urine Methadone Screen Negative (Negative) 06/02/20 19:07 Ur Barbiturates Screen Negative (Negative) 06/02/20 19:07 Ur Tricyclics Screen Negative (Negative) 06/02/20 19:07 Bupropion Cancelled 06/02/20 20:42 Hydroxybupropion Cancelled 06/02/20 20:42 Ur Amphetamines Screen Negative (Negative) 06/02/20 19:07 U Benzodiazepines Scrn Negative (Negative) 06/02/20 19:07 Urine Cocaine Screen Negative (Negative) 06/02/20 19:07 Ur THC Screen Negative (Negative) 06/02/20 19:07 COVID-19 PCR Negative (Negative) 06/02/20 20:00 [place] COVID-19 PCR Not Applicable 06/02/20 20:00 Ref Test Perform Site [facility] lab 06/02/20 20:00 Reporting Documentation Cancelled 06/02/20 20:42 Reporting Documentation Cancelled 06/02/20 20:42 Patient ABO/Rh O Positive 06/02/20 19:22 Antibody Screen Negative 06/02/20 19:22 Subjective Patient Reports: New Complaints Interval history since last seen: Complains of lower back pain on the left. She requested to get up to the commode. She declined a SVE. B.P 140-160/88-90. Results Hemoglobin/Hematocrit: Hgb 12.0 g/dL (11.2-15.7) 06/02/20 19:22 Hct 35.6 % (36.0-46.0) L 06/02/20 19:22 Abnormal Lab Findings: Abnormal Labs 06/02/20 06/02/20 19:22 19:22 RBC 3.85 L Hct 35.6 L BUN 5 L Creatinine 0.44 L AST 13 L Alkaline Phosphatase 146 H Albumin 2.6 L
[2020-06-05 13:12] LABS: HCT 38.5 % (36.0-46.0); HGB 12.8 g/dL (11.2-15.7); MCH 31.1 pg (27.0-33.0); MCHC 33.2 % (32.0-36.0); MCV 93.4 fL (80-95); MPV 8.9 fL (8.0-11.0); Platelet Count 238 10^3/uL (130-400); RBC 4.12 10^6/uL (3.93-5.22); RDW 13.2 % (11.7-14.6); RDW-SD 45.2 fL
[2020-06-05 13:31] LABS: ALT 15 U/L (14-59); AST 15 U/L (15-37); Albumin 2.6 g/dL (3.4-5.0); Alkaline Phosphatase 160 U/L (46-116); Anion Gap 8.8 mmol/L (3-11); BUN 7 mg/dL (7-18); Bilirubin, Total 0.4 mg/dL (0.2-1.0); CO2 24.2 mmol/L (21.0-32.0); CREATININE 0.61 mg/dL (0.55-1.02); Calcium 8.7 mg/dL (8.5-10.1); Chloride 101 mmol/L (98-107); Glucose 91 mg/dL (74-106); Potassium 3.6 mmol/L (3.5-5.1); Sodium 134 mmol/L (136-145); Total Protein 6.9 g/dL (6.4-8.2); Uric Acid 3.6 mg/dL (2.6-6.0)
--- NOTE | 2020-06-05 13:37 | PGE_ITS ---
Date of service: 06/05/20 Time of Service: 13:37 Informed Consent Informed Consent: Induction of Labor and Risk,Benefits,Alternatives Discussed Pelvic Exam Dilation: 5 Effacement (%): 100 station: 0 Cervix Position: mid Consistency: soft Vaginal Exam Presentation: Cephalic Pooling: Positive Contractions Monitor Mode: External Contraction Frequency(min): Q 2 minutes Contraction Duration(sec): 50-60 Intensity: Moderate/Strong Fetus A Monitor: External (US) Heart Rate Baseline: 120 Presentation: Vertex Variability: Moderate (6-25 BPM) Categories: Category I Accelerations: 15 X 15 Decelerations: Variable (brief variables with contractions. ) Recurrence: Recurrent Amniotic Membrane Status: Ruptured Assessment and Plan Assessment and plan (1) Encounter for elective induction of labor: Status: Acute Assessment and plan: I suggested an IUPC to monitor the strength and pattern of her contractions. Juan declined this intervention and expressed frustration with the process and said ' you are torturing me She expressed her fear of a after the long induction and I reassured her that I am not considering at this time but I would like to have more information about her contractions. She requested to use the commode again, and she sat on the commode for a while per her request. Anticipate . Objective Abnormal lab results 06/05/20 06/05/20 Range/Units 13:00 13:00 WBC 13.00 H (4.4-10.8) 10^3/uL Sodium 134 L (136-145) mmol/L Alkaline Phosphatase 160 H (46-116) U/L Albumin 2.6 L (3.4-5.0) g/dL Temp Pulse Resp BP Pulse Ox 98.1 F 80 20 150/90 H 98 06/05/20 11:23 06/05/20 11:23 06/05/20 11:23 06/05/20 11:23 06/05/20 00:22 Laboratory Results WBC 13.00 10^3/uL (4.4-10.8) H 06/05/20 13:00 RBC 4.12 10^6/uL (3.93-5.22) 06/05/20 13:00 Hgb 12.8 g/dL (11.2-15.7) 06/05/20 13:00 Hct 38.5 % (36.0-46.0) 06/05/20 13:00 MCV 93.4 fL (80-95) 06/05/20 13:00 MCH 31.1 pg (27.0-33.0) 06/05/20 13:00 MCHC 33.2 % (32.0-36.0) 06/05/20 13:00 RDW 13.2 % (11.7-14.6) 06/05/20 13:00 Plt Count 238 10^3/uL (130-400) 06/05/20 13:00 MPV 8.9 fL (8.0-11.0) 06/05/20 13:00 Sodium 134 mmol/L (136-145) L 06/05/20 13:00 Potassium 3.6 mmol/L (3.5-5.1) 06/05/20 13:00 Chloride 101 mmol/L (98-107) 06/05/20 13:00 Carbon Dioxide 24.2 mmol/L (21.0-32.0) 06/05/20 13:00 Anion Gap 8.8 mmol/L (3-11) 06/05/20 13:00 BUN 7 mg/dL (7-18) 06/05/20 13:00 Creatinine 0.61 mg/dL (0.55-1.02) 06/05/20 13:00 Estimated GFR/1.73 m2 >= 60.00 (mL/min/1.73m2) 06/05/20 13:00 Glucose 91 mg/dL (74-106) 06/05/20 13:00 Uric Acid 3.6 mg/dL (2.6-6.0) 06/05/20 13:00 Calcium 8.7 mg/dL (8.5-10.1) 06/05/20 13:00 Total Bilirubin 0.4 mg/dL (0.2-1.0) 06/05/20 13:00 AST 15 U/L (15-37) 06/05/20 13:00 ALT 15 U/L (14-59) 06/05/20 13:00 Alkaline Phosphatase 160 U/L (46-116) H 06/05/20 13:00 Total Protein 6.9 g/dL (6.4-8.2) 06/05/20 13:00 Albumin 2.6 g/dL (3.4-5.0) L 06/05/20 13:00 Ur Random Creatinine 94.33 mg/dL 06/02/20 19:07 U Random Total Protein 10.4 mg/dL 06/02/20 19:07 U [place] Prot/Creat Ratio 0.11 06/02/20 19:07 Urine Opiates Screen Negative (Negative) 06/02/20 19:07 Urine Methadone Screen Negative (Negative) 06/02/20 19:07 Ur Barbiturates Screen Negative (Negative) 06/02/20 19:07 Ur Tricyclics Screen Negative (Negative) 06/02/20 19:07 Bupropion Cancelled 06/02/20 20:42 Hydroxybupropion Cancelled 06/02/20 20:42 Ur Amphetamines Screen Negative (Negative) 06/02/20 19:07 U Benzodiazepines Scrn Negative (Negative) 06/02/20 19:07 Urine Cocaine Screen Negative (Negative) 06/02/20 19:07 Ur THC Screen Negative (Negative) 06/02/20 19:07 COVID-19 PCR Negative (Negative) 06/02/20 20:00 Nasopharyn COVID-19 PCR Not Applicable 06/02/20 20:00 Ref Test Perform Site [place] [facility] lab 06/02/20 20:00 Reporting Documentation Cancelled 06/02/20 20:42 Reporting Documentation Cancelled 06/02/20 20:42 Patient ABO/Rh O Positive 06/02/20 19:22 Antibody Screen Negative 06/02/20 19:22 Vital Signs Reviewed: Yes Subjective Interval history since last seen: Juan is comfortable. She denies back pain. She agrreed to SVE and cervix is 5/100/0 station. The pitocin is at 30 mu/min. Preeclampsia labs drawn and WNL. Juan declines the automatic Blood pressure and most recent manual B.P. was 150/90 Results Hemoglobin/Hematocrit: Hgb 12.8 g/dL (11.2-15.7) 06/05/20 13:00 Hct 38.5 % (36.0-46.0) 06/05/20 13:00 Abnormal Lab Findings: Abnormal Labs 06/02/20 06/02/20 06/05/20 19:22 19:22 13:00 WBC RBC 3.85 L Hct 35.6 L Sodium 134 L BUN 5 L Creatinine 0.44 L AST 13 L Alkaline Phosphatase 146 H 160 H Albumin 2.6 L 2.6 L 06/05/20 13:00 WBC 13.00 H RBC Hct Sodium BUN Creatinine AST Alkaline Phosphatase Albumin
[2020-06-05] MEDS: Lidocaine 2% Jelly 11 ML SYR (18:40)
[2020-06-05] MEDS: Acetaminophen 500 MG TAB 1000 MG PO (21:25)
[2020-06-05] MEDS: Hamamelis Leaf/Glycerin 100 EACH BOX PR (21:26)
[2020-06-05] MEDS: Docusate Sodium 100 MG CAP PO (21:26)
[2020-06-05] MEDS: Ibuprofen 600 MG TAB PO (21:27)
[2020-06-06 00:01] VITALS: BP 137/76; PULSE 94; RESP 16; TEMP 36.6
[2020-06-06 07:23] LABS: HCT 28.7 % (36.0-46.0); HGB 9.8 g/dL (11.2-15.7); MCH 31.4 pg (27.0-33.0); MCHC 34.1 % (32.0-36.0); MPV 8.9 fL (8.0-11.0); Platelet Count 217 10^3/uL (130-400); RBC 3.12 10^6/uL (3.93-5.22); RDW-SD 42.7 fL; WBC 13.37 10^3/uL (4.4-10.8)
[2020-06-06] MEDS: Docusate Sodium 100 MG CAP PO (07:30)
[2020-06-06] MEDS: Ibuprofen 600 MG TAB PO (07:30)
[2020-06-06 07:51] VITALS: BP 114/74; PULSE 86; RESP 18; TEMP 36.6
--- NOTE | 2020-06-06 08:36 | W.OBDELIVERY ---
Date of service: 06/05/20 Time of Service: 21:00 OB Labor/ Delivery Information Providers Nurse Engineer Third Assistant: Cassy Calvillo Venereal Disease Investigator: Fly Richard Nurse: Mirella Wadsworth Nurse: Eliza Mathews Labor/Delivery Information Number of Babies in Womb: 1 Steroids Given: None Reason Steroids Not Administered: N/A Group Beta Strep: Negative Antibiotics Administered: No Rubella Status: Immune Blood Type: O+ Varicella Immunity: Immune Maternal Complications: None and Other (oligohydramnios) Shoulder Dystocia: No Note: Post dates Stages of Labor Onset of Labor Date: 06/05/20 Onset of Labor Time: 15:00 Complete Dilatation Date: 06/05/20 Complete Dilatation Time: 18:07 Labor - Stage 1 Duration: 0 minutes ROM Baby A: 06/04/20 ROM Baby A: 20:05 ROM Total Time- Baby A: [id number] Infant Delivery Date-Baby A: 06/05/20 Delivery Time-Baby A: 19:22 Labor Stage 2 Duration: 1 hours and 15 minutes Placenta Delivery Date-Baby A: 06/05/20 Placenta Delivery Time-Baby A: 19:35 Labor-Stage 3 Duration: 13 minutes Total Length of Labor-Baby A: 4 hours and 22 minutes Placenta Cultured: No Placenta Status: Delivered Baby A Infant Gender: Male Gestational Status: Postterm Gestational Age in Weeks/Days: 41 Weeks and 3 Days weight: 8 lb 3.396 oz Length-Baby A: 13.5 in Head Circumference-Baby A: 13.5 in Score-1 Minute Interval(Baby A) Heart Rate-1 minute: 100 BPM or Greater Respiratory Effort- 1 minute: Slow Respiration/Weak Cry Muscle Tone-1 minute: Minimal Flexion/Extension Reflex Response-1 minute: Prompt Response Color-1 minute: Pallor or Cyanosis Total Score-1 minute: 6 Score-5 Minute Interval(Baby A) Heart Rate- 5 minute: 100 BPM or Greater Respiratory Effort-5 minute: Slow Respiration/Weak Cry Muscle Tone-5 minute: Active Movement Reflex Response-5 minute: Prompt Response Color-5 minute: Bluish Hands or Feet Total Score- 5 minute: 8 Note: FHTs 120s during first stage of labor. FHTs 120s in second stage with occasional variable decellerations. Progressed to full dilation and began pushing. Juan pushed well and delivered in hands and knees position. Spontaneous delivery of male infant delivered in CJ position. Baby was placed on mother's abdomen and dried and stimulated. Spontaneous cry. Cord was clamped and cut by father of the baby . The placenta delivered spontaneously and appears to be intact with a three vessel cord. Pitocin 30 units IV was administered after delivery of the placenta. The perineum was inspected and there were bilateral superficial vaginal lacerations which were repaired. The baby did attempt to breastfeed. After delivery, Mother and baby and father of the baby were stable and bonding well in the delivery room and there were no complications. Baby A Delivery Delivery Method: Spontaneaous Presentation: Vertex Vertex Position: Left Occipital Anterior Cord Description-Baby A: 3 Vessels Membrane Rupture: Spontaneous Amniotic Fluid: Clear Amniotic Fluid Amount: Large Amniotic Fluid Odor: None Estimated Blood Loss: 250 Delivery Outcome: Liveborn Procedure Procedures: Cervical Ripening (misoprostol x 5 doses) Interventions Induction Indication: Gestational Hypertension and Oligohydramnios , Type of Induction: Misoprostol administration: Oral and Vaginal and Pitocin , Induction Note: misoprostol x 5 doses and Pitocin ./ Repair of Laceration Type: Periurethral (left periurethral partially repaired) and Other (superficial bilateral vaginal laceration) , Laceration Extension: N/A . Sponge Count Correct: Vaginal Sweep Peformed , Sharp Count Correct: Yes .
[2020-06-06 17:35] VITALS: BP 142/87; PULSE 90; RESP 17; TEMP 36.9; O2SAT 98
--- NOTE | 2020-06-06 20:32 | OBPPV_ITS ---
Date of service: 06/06/20 Time of Service: 11:33 Assessment and Plan Assessment and plan (1) Anemia, blood loss: Status: Acute Assessment and plan: will recommend iron supplements after normal bowel pattern established. Caring for baby independently. Pain is managed well with oral analgesics. Voiding without difficulty. A - stable mother and baby , Post day 1 P - Discharge tomorrow. Continue to offer support. Alla MINOR will visit Juan today. Juan will remain at the Center for a 5 day observation period due to MAT with suboxone. (2) Hemorrhoid: Status: Acute Subjective Subjective Patient comments: Pain well controlled Patient's Mood: Juan appears happy with . She has been guarded with and has not been accepting help with nursing and observation of feedings. [place] baby status: Doing well and Nursing well (Juan has not allowed staff to observe nursing but reports that the baby did latch on) [place] feeding status: Exclusively breast feeding Narrative: She complains of hemorrhoid discomfort and has been using stool softner Exam Physical Exam Vital signs: Temp Pulse Resp BP Pulse Ox 98.4 F 90 17 142/87 H 98 06/06/20 17:35 06/06/20 17:35 06/06/20 17:35 06/06/20 17:35 06/06/20 17:35 Vital Signs Reviewed: Yes Constitutional Constitutional: no acute distress Respiratory Exam Respiratory Exam: Normal Fundal Exam Fundus: Below Umbilicus and Firm Extremities Exam Extremity Exam: Edema (2+ non pitting) Skin Exam Skin Exam: Normal Psychiatric Exam Psychiatric Exam: Normal Results Hemoglobin/Hematocrit: Hgb 9.8 g/dL (11.2-15.7) L D 06/06/20 07:05 Hct 28.7 % (36.0-46.0) L D 06/06/20 07:05 Abnormal Lab Findings: Abnormal Labs 06/02/20 06/02/20 06/05/20 19:22 19:22 13:00 WBC RBC 3.85 L Hgb Hct 35.6 L Sodium 134 L BUN 5 L Creatinine 0.44 L AST 13 L Alkaline Phosphatase 146 H 160 H Albumin 2.6 L 2.6 L 06/05/20 06/06/20 13:00 07:05 WBC 13.00 H 13.37 H RBC 3.12 L Hgb 9.8 L D Hct 28.7 L D Sodium BUN Creatinine AST Alkaline Phosphatase Albumin
[2020-06-07 00:50] VITALS: BP 128/86; PULSE 88; RESP 16; TEMP 36.6
[2020-06-07] MEDS: Ibuprofen 600 MG TAB PO (08:42)
[2020-06-07] MEDS: Docusate Sodium 100 MG CAP PO (08:43)
[2020-06-07] MEDS: Acetaminophen 500 MG TAB 1000 MG PO (08:43)
[2020-06-07 09:03] VITALS: BP 125/88; PULSE 95; RESP 18; TEMP 36.7; O2SAT 99
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
[2020-06-07] MEDS: Hamamelis Leaf/Glycerin 100 EACH BOX PR (10:23)
[2020-06-08 08:43] LABS: Buprenorphine 169.5 ng/mL; Norbuprenorphine 319.2 ng/mL
== END 2020-06-07 10:39 | disposition home or self-care (01) | DRG 806 ==
PROVIDERS: Advanced Practice Midwife; Admitting Provider Advanced Practice Midwife; Visit Provider Advanced Practice Midwife
DX: O70.0 First degree perineal laceration during delivery (principal); O99.324 Drug use complicating childbirth; Z37.0 Single live birth; F11.20 Opioid dependence, uncomplicated; D62 Acute posthemorrhagic anemia; O87.2 Hemorrhoids in the puerperium; O48.0 Post-term pregnancy; Z3A.41 41 weeks gestation of pregnancy; O13.4 Gestational [pregnancy-induced] hypertension without significant proteinuria, complicating childbirth; O99.334 Smoking (tobacco) complicating childbirth; F17.210 Nicotine dependence, cigarettes, uncomplicated; O99.344 Other mental disorders complicating childbirth; F41.9 Anxiety disorder, unspecified; Z79.82 Long term (current) use of aspirin; Z67.40 Type O blood, Rh positive; O99.02 Anemia complicating childbirth; Z11.59 Encounter for screening for other viral diseases
CPT/HCPCS: 36415; 80053; 80307; 80338; 85027; 86850; 86900; 86901; 99252; U0003; 82565; 84156; 84550; J3490

== ENCOUNTER 2021-04-17 18:03 | Emergency (ER) | payer MEDICAID, SELFPAY | END 2021-04-17 18:15 | LOC: ER 18:13 | DX: Z53.21 Procedure and treatment not carried out due to patient leaving prior to being seen by health care provider (principal) ==

== ENCOUNTER 2021-06-29 14:42 | Emergency (ER) | payer MEDICAID, SELFPAY ==
--- NOTE | 2021-06-29 14:45 | RT.EKG_ITS ---
APPROVED REPORT Exam: Resting ECG Reason for Exam: chest pain Patient Location: E HR:95 bpm ECG Measurements Heart Rate 95 AXIS VT 156 P 66 QRSd 92 QRS -10 QT 352 T 31 QTc 443 Conclusion Sinus rhythm...normal P axis, V-rate 60- 99 Probable left atrial enlargement...P >50mS, <-0.10mV V1
[2021-06-29 14:46] VITALS: BP 168/98; PULSE 104; RESP 24; TEMP 37.1; O2SAT 98
--- NOTE | 2021-06-29 15:07 | W.ED.GENAD ---
Discharge Plan Disposition Patient Disposition: AGAINST MEDICAL ADVICE Condition: Stable Discharge Details Clinical Impression: Chest pain Primary Care Provider: Unknown,Unknown ED Provider: Gentry Willard Home Meds and New Rx's Prescriptions: Continued buprenorphine-naloxone 8-2 mg tablet, sublingual 2 tab SL DAILY RF: 0 Discharge Instructions Instructions: Chest Pain (ED) Additional Instructions: you chose to leave against medical advise rather than have a complete workup for your symptoms you can return at any time if you want to be reevaluated follow up with your primary care provider as soon as possible Medical Decision Making 31 yo femal with hx of anxietey per patient comes in with complaints of having a sensation of chest tightness and arm numbness lasting a few minutes during the day, once a day, for 3 days and is associated with her feeling anxious. She denies smoking, drinks occasionally, and denies drug use. She has not had dyspnea, fevers, abdominal pain. She is in no distress on exam speaking clearly though does appear mildly anxious. She has no abdominal tenderness, clear lungs, no murmurs, no rashes associated with endocarditis, no hand lesions, no leg swelling and no calf tenderness, no jvd. I suspect her symptoms are due to anxiety but will obtain ecg and troponin, heart score is 2. She is wells low but is on control so can't use perc to exclude PE so will send d dimer. Has normal vascular exam and no tearing back pain so doubt dissection and given no murmurs or other findings to suggest endocarditis and clear lungs without pleuritic pain doubt ptx. prior to labs being done she decided she didn't want to stay. She is caox4 and clinically sober with no slurred speech and has capacity to make her own decisions. She understands risks of leaving including and permanent disability and is willing to accept these risks. She is leaving against medical advise. She will follow up with her pcp and I advised she can return at any time if she changes her mind Differential Diagnosis Differential Diagnosis: anxiety, nstemi, PE Medical Records Medical records reviewed: Yes I reviewed the patient's medical records. ECG Data Attestation: I personally reviewed and interpreted this ECG (s) as follows: Prior ECG tracings: not available for review Interpretation: sinus rhythm, rate of 95, pr 156, no acute st t wave ischemic findings HPI General Mode of arrival: ambulatory. Date/Time Provider Initiated Documentation: 06/29/21 14:59. Limitations to Documentation: no limitations. Information obtained by: patient. History of Present Illness 31 year old F presents to the emergency department with the chief complaint of chest pain, described as moderate, Quality is described as aching, and is localized to the chest. Patient started experiencing this day(s) (3) and it has been intermittent. No relieving factors improve symptom(s), No exacerbating factors reported . Patient notes no other symptoms.. Patient did receive the following treatments prior to arrival, none Related Data Home Medications Medication Instructions Recorded Confirmed buprenorphine 8 mg-naloxone 2 mg 2 tab SL DAILY 11/25/19 06/29/21 sublingual tablet Allergies Allergy/AdvReac Type Severity Reaction Status Date / Time No Known Allergies Allergy Unverified 06/29/21 14:49 General Stated Complaint: Palpitatns MICHAEL: 2 Review of Systems All systems reviewed & are unremarkable except as noted in HPI and below Constitutional Constitutional: Denies chills, Denies fever(s) and Denies weakness Cardiovascular Cardiovascular: Denies dyspnea Respiratory Respiratory: Denies cough and Denies dyspnea Gastrointestinal Gastrointestinal: Denies abdominal pain, Denies nausea and Denies vomiting Integumentary/Breasts Skin/Breast: Denies rash Neurologic Neurologic: Denies weakness [facility] Medical History (Updated 06/29/21 @ 15:38 by Gentry Willard MD) Anxiety Encounter for elective induction of labor Gestational hypertension High BMI History of migraine 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, denies opiate use Post-dates related conditions, unspecified, third trimester Family History Maternal Grandmother Diabetes Multiple sclerosis Paternal Grandmother Diabetes Social History Smoking/Tobacco Use Status: Former Tobacco Use Quit Date: 02/07/20 Tobacco: How many years used: 15 Smoking risk assessment performed?: Yes Alcohol Intake: former Drug use: Never Substance use type: does not use Do you feel safe at home: Yes Additional Social history: partner present, can not assess History History 2 Para 1 Hx # Term Pregnancies 1 Multiple births 0 Hx # Pregnancies 0 Ectopic pregnancies 0 AB induced 0 Hx Number of Living Children 1 AB spontaneous 1 Past Pregnancies Del. Date GA/Weeks # Outcome Route Wgt Sex Labor Lgth Anesthesia Location Prov Complic 03/16/09 11 06/05/20 41 No Successful vaginal 3725.127 g Male 4hrs 22min [facility] Delivery Date: 03/16/09 took miso for home SAB, has been very traumatized by the experience YadiraMyah Delivery Date: 06/05/20 Induced due to gestational HTN; Oligohydramnios Tigist Ansari Exam Const General: no acute distress Orientation: alert HENWV Head: normal to inspection Ears: external ears normal General nose exam: external nose normal Mouth: moist mucous membranes Eyes General: appearance normal, both eyes and all related structures Neck Neck: normal visual inspection Resp Effort & Inspection: normal respiratory effort and able to speak in complete sentences Cardio Rate: regular rate GI Palpation: soft and nontender Skin General skin exam: no rashes or lesions noted Neuro General: patient alert and patient oriented x3 Extrem General: normal to inspection Psych Mental Status: mental status grossly normal Course Vital Signs Vital signs: Vital Signs Temperature 37.1 C 06/29/21 14:46 Pulse 104 H 06/29/21 14:46 Respiratory Rate 24 06/29/21 14:46 Blood Pressure 168/98 H 06/29/21 14:46 Pulse Oximetry 98 06/29/21 14:46 Temperature 37.1 C 06/29/21 14:46 Temperature Source Temporal Artery Scan 06/29/21 14:46 Pulse 104 H 06/29/21 14:46 Respiratory Rate 24 06/29/21 14:46 Blood Pressure 168/98 H 06/29/21 14:46 Blood Pressure Position Sitting 06/29/21 14:46 Pulse Oximetry 98 06/29/21 14:46 Oxygen Delivery Method Room Air 06/29/21 14:46 Oxygen Flow Rate 0 06/29/21 14:46 Pain Level 2 06/29/21 14:46 Comment 06/29/21 14:46 Lab/Test Results Lab/Test Results: POC- Test(urine) Negative
[2021-06-29 15:21] LABS: Abs Immature Grans 0.02 10^3/uL (0.0-0.06); Absolute Basophil Count 0.03 10^3/uL (0.0-0.2); Absolute Eosinophil Count 0.07 10^3/uL (0.0-0.7); Absolute Lymphocyte Count 2.57 10^3/uL (1.2-3.4); Absolute Monocyte Count 0.53 10^3/uL (0.1-0.8); Basophils % 0.4; Eosinophils % 0.9; HCT 41.8 % (36.0-46.0); HGB 14.3 g/dL (11.2-15.7); Immature Grans % 0.3; Lymphocytes % 34.2; MCHC 34.2 % (32.0-36.0); MCV 90.7 fL (80-95); MPV 9.2 fL (8.0-11.0); Neutrophils % 57.2; Nucleated RBC 0 %; Platelet Count 273 10^3/uL (130-400); RBC 4.61 10^6/uL (3.93-5.22); RDW 12.3 % (11.7-14.6); RDW-SD 40.2 fL; WBC 7.52 10^3/uL (4.4-10.8)
[2021-06-29 15:30] VITALS: O2SAT 97
--- NOTE | 2021-06-29 15:37 | NUR.NOTE ---
has pulled monitor leads off, states she wants to leave.Nursing Note:
[2021-06-29 16:09] LABS: D-Dimer 239 ng/mlFEU (<500)
[2021-06-29 16:16] LABS: Lipase 82 U/L (73-393); Magnesium 2.2 mg/dL (1.8-2.4)
[2021-06-29 16:31] LABS: Troponin I < 0.05 ng/mL (<0.06)
== END 2021-06-29 15:43 | disposition left against medical advice (07) ==
PROVIDERS: Emergency Provider Emergency Medicine
DX: R07.89 Other chest pain (principal); Z53.29 Procedure and treatment not carried out because of patient's decision for other reasons; R20.0 Anesthesia of skin
CPT/HCPCS: 36415; 81025; 83690; 93005; 99283; 83735; 84484; 85025; 85379; 93010

== ENCOUNTER 2021-07-03 16:39 | Outpatient (REF) | payer MEDICAID, SELFPAY ==
[2021-07-03 21:53] LABS: HCT 40.3 % (36.0-46.0); HGB 13.5 g/dL (11.2-15.7); MCH 30.8 pg (27.0-33.0); MCHC 33.5 % (32.0-36.0); MCV 91.8 fL (80-95); MPV 9.7 fL (8.0-11.0); Platelet Count 302 10^3/uL (130-400); RBC 4.39 10^6/uL (3.93-5.22); RDW 12.4 % (11.7-14.6); RDW-SD 41.5 fL; WBC 6.78 10^3/uL (4.4-10.8)
[2021-07-03 22:13] LABS: Hemoglobin A1C 5.3 % (<5.7)
[2021-07-03 22:17] LABS: ALT 50 U/L (14-59); AST 21 U/L (15-37); Albumin 4.4 g/dL (3.4-5.0); Alkaline Phosphatase 103 U/L (46-116); Anion Gap 9.2 mmol/L (3-11); BUN 9 mg/dL (7-18); Bilirubin, Total 0.4 mg/dL (0.2-1.0); CO2 27.8 mmol/L (21.0-32.0); CREATININE 0.6 mg/dL (0.55-1.02); Calcium 9.2 mg/dL (8.5-10.1); Calculated LDL 177 mg/dL (<100); Chloride 104 mmol/L (98-107); Cholesterol 267 mg/dL (<200); Glucose 100 mg/dL (74-106); HDL Cholesterol 60 mg/dL (40-60); Potassium 4.3 mmol/L (3.5-5.1); Sodium 141 mmol/L (136-145); TSH (W/Ref FT4) 0.88 uIU/mL (0.36-3.74); Total Protein 8.2 g/dL (6.4-8.2); Triglyceride 150 mg/dL (<150)
== END 2021-07-03 16:40 | disposition home or self-care (01) ==
LOC: NCHCN 16:39
PROVIDERS: Visit Provider Nurse Practitioner Family
DX: F11.11 Opioid abuse, in remission (principal); I10 Essential (primary) hypertension; F41.9 Anxiety disorder, unspecified; E66.9 Obesity, unspecified; I51.7 Cardiomegaly; R79.89 Other specified abnormal findings of blood chemistry
CPT/HCPCS: 80053; 80061; 85027; 83036; 84443

== ENCOUNTER 2022-06-03 17:43 | Outpatient (REF) | payer MEDICAID, SELFPAY ==
[2022-06-05 12:08] LABS: COVID-19 RT-PCR UVMMC Result Positive (Negative)
== END 2022-06-03 17:44 | disposition home or self-care (01) ==
LOC: LBN 17:43
PROVIDERS: Visit Provider Nurse Practitioner Family
DX: Z20.822 Contact with and (suspected) exposure to COVID-19 (principal); J06.9 Acute upper respiratory infection, unspecified
CPT/HCPCS: U0003

== ENCOUNTER 2022-10-11 18:42 | Outpatient (REF) | payer MEDICAID, SELFPAY ==
[2022-10-13 12:16] LABS: COVID-19 RT-PCR UVMMC Result Negative (Negative)
== END 2022-10-11 18:43 | disposition home or self-care (01) ==
LOC: LBN 18:42
PROVIDERS: Visit Provider Physician Assistant Medical
DX: J02.9 Acute pharyngitis, unspecified (principal); Z20.822 Contact with and (suspected) exposure to COVID-19
CPT/HCPCS: U0003; 87070

== ENCOUNTER 2023-12-04 05:09 | Outpatient (CLI) | payer MEDICAID, SELFPAY ==
[2023-12-04 12:01] LABS: Panorama Kit Sent via Fed Ex
[2023-12-04 12:11] LABS: Abs Immature Grans 0.02 10^3/uL (0.0-0.06); Absolute Basophil Count 0.02 10^3/uL (0.0-0.2); Absolute Eosinophil Count 0.01 10^3/uL (0.0-0.7); Absolute Lymphocyte Count 1.87 10^3/uL (1.2-3.4); Absolute Monocyte Count 0.44 10^3/uL (0.1-0.8); Absolute Neutrophil Count 5.73 10^3/uL (1.2-6.7); Basophils % 0.2; Eosinophils % 0.1; HCT 38.3 % (36.0-46.0); HGB 13.2 g/dL (11.2-15.7); Immature Grans % 0.2; Lymphocytes % 23.1; MCH 31.4 pg (27.0-33.0); MCHC 34.5 % (32.0-36.0); MCV 91 fL (80-95); MPV 8.8 fL (8.0-11.0); Monocytes % 5.4; Platelet Count 275 10^3/uL (130-400); RDW 12.1 % (11.7-14.6); RDW-SD 40.5 fL; WBC 8.09 10^3/uL (4.4-10.8)
[2023-12-04 12:56] LABS: TSH (W/Ref FT4) 0.71 uIU/mL (0.36-3.74)
[2023-12-04 22:49] LABS: Hepatitis B Surface Ag Negative (Negative)
[2023-12-04 23:20] LABS: Hepatitis C Ab w Rflx HCV PCR Negative (Negative)
[2023-12-04 23:42] LABS: HIV-1/2 Ag & Ab Screen Negative (Negative)
[2023-12-05 10:39] LABS: Varicella IgG Antibody Positive (See Note)
[2023-12-05 11:14] LABS: Rubella IgG Ab (UVM) Positive (See Note)
[2023-12-07 12:57] LABS: Syphilis IgG w/Reflex Nonreactive (Nonreactive)
== END 2023-12-04 05:10 | disposition home or self-care (01) ==
LOC: LBO 05:09
PROVIDERS: Visit Provider Advanced Practice Midwife
DX: Z34.91 Encounter for supervision of normal pregnancy, unspecified, first trimester (principal)
CPT/HCPCS: 36415; 86787; 86803; 86850; 86900; 86901; 87340; 87389; 84443; 85025; 86762; 86780

== ENCOUNTER 2023-12-04 11:31 | Outpatient (REF) | payer MEDICAID, SELFPAY ==
--- NOTE | 2023-12-04 11:00 | PAPFT_PTH ---
PATIENT: Juan Stephenson LOC: [facility] U#:[id number] AGE/SX: 33/F ROOM: RE12/04/[address]: Sylvia May CNM : 1990 BED: DIS: 12/04/2023 SPEC #: [id number] RECD: 12/04/23 18:03 STATUS: VANESSA REQ #: [id number] TEOFILO: 12/04/23 11:[address]: Sylvia May DEPT: [facility] Cytology RECD BY: Johana Reyna ENTERED: 12/04/23 18:03 SP TYPE: PAPFT OTHR DR: Unknown,Unknown Tissues: 1 - CX/ENDOCX FOR PAP SMEARS Procedures: PAP THIN PREP/UVM Screening HPV DNA PROBE Comments: [id number] (CHLAMYDIA/GC)
[2023-12-04 14:53] LABS: Lab Add On Test DONE
[2023-12-04 16:00] LABS: ALT 25 U/L (14-59); AST 18 U/L (15-37); Albumin 3.8 g/dL (3.4-5.0); Alkaline Phosphatase 71 U/L (46-116); Anion Gap 12.2 mmol/L (3-11); BUN 5 mg/dL (7-18); Bilirubin, Total 0.4 mg/dL (0.2-1.0); CO2 23.8 mmol/L (21.0-32.0); CREATININE 0.5 mg/dL (0.55-1.02); Calcium 9.3 mg/dL (8.5-10.1); Chloride 99 mmol/L (98-107); Estimated GFR 125.36 (mL/min/1.73m2); Glucose 98 mg/dL (74-106); Potassium 4.3 mmol/L (3.5-5.1); Sodium 135 mmol/L (136-145); Total Protein 8.1 g/dL (6.4-8.2)
[2023-12-04 17:14] LABS: *AMPHETAMINES SCREEN URINE Negative (Negative); *BARBITURATES SCREEN URINE Negative (Negative); *BENZODIAZEPINES SCREEN URINE Negative (Negative); Cannabinoids THC Negative (Negative); Cocaine Screen,Urine Negative (Negative); METHADONE URINE SCREEN Negative (Negative); OPIATES URINE SCREEN Negative (Negative)
[2023-12-04 17:26] LABS: Tricyclic Antidepressants Negative (Negative)
[2023-12-05 12:11] LABS: Fentanyl Scr w/Rfx Confirm Negative ng/mL (<1)
[2023-12-05 15:39] LABS: Chlamydia Result Negative (Negative); GC Result Negative (Negative)
[2023-12-11 10:08] LABS: Buprenorphine 71.4 ng/mL (Cutoff: 5.0); Norbuprenorphine 117.2 ng/mL (Cutoff: 2.5)
== END 2023-12-04 11:32 | disposition home or self-care (01) ==
LOC: LBN 11:31
PROVIDERS: Visit Provider Advanced Practice Midwife
DX: Z34.91 Encounter for supervision of normal pregnancy, unspecified, first trimester (principal); Z87.59 Personal history of other complications of pregnancy, childbirth and the puerperium
CPT/HCPCS: 80053; 80307; 80348; 87491; 87591; 88142; 87086; 87480; 87510; 87624; 87660

== ENCOUNTER 2023-12-18 05:26 | Outpatient (CLI) | payer MEDICAID, SELFPAY ==
[2023-12-18 11:38] LABS: Panorama Kit Sent via Fed Ex
== END 2023-12-18 05:27 | disposition home or self-care (01) ==
LOC: LBO 05:26
PROVIDERS: Visit Provider Advanced Practice Midwife
DX: O28.5 Abnormal chromosomal and genetic finding on antenatal screening of mother (principal); Z3A.15 15 weeks gestation of pregnancy; Z36.89 Encounter for other specified antenatal screening
CPT/HCPCS: 36415

== ENCOUNTER 2023-12-28 17:09 | Emergency (ER) | payer MEDICAID, SELFPAY ==
[2023-12-28 17:16] VITALS: BP 154/101; PULSE 96; RESP 16; TEMP 37.1; O2SAT 97
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
[2023-12-28 17:54] LABS: Bilirubin Negative (Negative); Blood Negative (Negative); Clarity Clear (Clear); Glucose Negative (Negative); Ketones Negative (Negative); Leukocyte Esterase Small (Negative); Nitrite Negative (Negative); Urobilinogen 0.2 mg/dL (Up to 0.2); pH 5.5 (5-8)
[2023-12-28 18:31] LABS: Epithelial Cells Moderate HPF (Negative); RBC 0-2 HPF (0-2)
[2023-12-28 18:32] LABS: Bacteria Few HPF (Negative); C & S Indicated? No/Sq. Contamination; Casts Negative LPF (Negative); Crystals Negative HPF (Negative); Mucus Negative (Negative)
[2023-12-28 18:44] VITALS: PULSE 65; TEMP 36.4; O2SAT 100
[2023-12-28] MEDS: metroNIDAZOLE 500 MG TAB PO (18:51)
[2023-12-30 14:05] LABS: Chlamydia Result Negative (Negative); GC Result Negative (Negative)
== END 2023-12-28 18:56 | disposition home or self-care (01) ==
PROVIDERS: Emergency Provider Emergency Medicine
DX: O98.312 Other infections with a predominantly sexual mode of transmission complicating pregnancy, second trimester (principal); A59.03 Trichomonal cystitis and urethritis; O09.522 Supervision of elderly multigravida, second trimester; Z3A.16 16 weeks gestation of pregnancy; Z87.891 Personal history of nicotine dependence
CPT/HCPCS: 81025; 87491; 87591; 99284; 81003; 81015; 87480; 87510; 87660

== ENCOUNTER → 2024-01-29 04:24 | Outpatient (CLI) | payer MEDICAID, SELFPAY ==
--- NOTE | 2024-01-29 07:30 | DI.US_ITS ---
Exam(s) US OB 2-3 TRIMESTER EXAM: US OB 2-3 TRIMESTER CLINICAL HISTORY: anatomy survey,z34.90. TECHNIQUE: Transabdominal obstetrical ultrasound was performed. COMPARISON: US POCUS EXAM from 12/18/2023 FINDINGS: There is a single viable intrauterine gestation with cardiac activity identified-133 bpm. Amniotic fluid: There is a normal amount of amniotic fluid. Placental location: The placenta is posterior grade 1,with no evidence of placenta previa. ANATOMY: Somewhat less than optimal resolution. A 3 vessel umbilical cord is seen. A four-chamber cardiac view was obtained. Right and left ventricular outflow tracts were imaged. There are no obvious abnormalities of the spinal column evident. There is no obvious abnormal ity of the anterior abdominal wall. stomach and urinary bladder are identified and there is no evidence of hydronephrosis. There is symmetrical mild prominence of both renal pelves b ut the PD/KD ratios are within normal limits. Also no true caliectasis. No abnormalities of the upper lip region are identified. No evidence of choroid plexus cysts i n the brain. Dating parameters place this at approximately 21 weeks and 5 days gestational age. BPD measures 22 weeks and 0 days HC measures 21 weeks and 2 days AC measures 21 weeks and 5 days FL measures 21 weeks and 5 days Estimated weight is 442 gm-1 pound, 0 ounces Fetus is at the 58th percentile on the Hadlock scale. IMPRESSION:: Single viable intrauterine gestation which is approximately 21 weeks and 5 days gestati onal age, implying an CARLA of 06/05/2024. There are no obvious anomalies evident on today's study. The placenta is posterior with no evidence of placenta previa. There is a normal amount of amniotic fluid. DATA REPOSITORY:
== END ==
PROVIDERS: Visit Provider Advanced Practice Midwife
DX: Z34.92 Encounter for supervision of normal pregnancy, unspecified, second trimester (principal); Z3A.22 22 weeks gestation of pregnancy
CPT/HCPCS: 76805

== ENCOUNTER 2024-02-17 11:48 | Outpatient (REF) | payer MEDICAID, SELFPAY | END 2024-02-17 11:49 | disposition home or self-care (01) | LOC: LBN 11:48 | PROVIDERS: Visit Provider Advanced Practice Midwife | DX: Z20.2 Contact with and (suspected) exposure to infections with a predominantly sexual mode of transmission (principal) | CPT/HCPCS: 87480; 87510; 87660 ==

== ENCOUNTER 2024-03-10 15:41 | Emergency (ER) | payer MEDICAID, SELFPAY ==
[2024-03-10 15:48] VITALS: BP 139/80; PULSE 79; RESP 16; TEMP 36.7; O2SAT 99
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
[2024-03-10 16:34] VITALS: BP 139/80; PULSE 79; RESP 16; TEMP 36.7; O2SAT 99
[2024-03-10 16:36] VITALS: BP 139/80; PULSE 79; RESP 16; TEMP 36.7; O2SAT 99
== END 2024-03-10 16:39 | disposition home or self-care (01) ==
PROVIDERS: Emergency Provider Emergency Medicine
DX: R05.9 Cough, unspecified (principal); O99.512 Diseases of the respiratory system complicating pregnancy, second trimester; J06.9 Acute upper respiratory infection, unspecified; Z3A.27 27 weeks gestation of pregnancy
CPT/HCPCS: 76857; 87426; 99284; 99283

== ENCOUNTER 2024-03-13 01:17 | Emergency (ER) | payer MEDICAID, SELFPAY ==
[2024-03-13 01:28] VITALS: BP 125/75; PULSE 67; RESP 14; TEMP 36.7; O2SAT 98
[2024-03-13 01:32] VITALS: TEMP 36.7
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
[2024-03-13] MEDS: Tetracaine 0.5% 4 ML BTL (02:55)
[2024-03-13] MEDS: Fluorescein STRIPS 100/BOX 1 MG (02:55)
--- NOTE | 2024-03-13 13:13 | NUR.NOTE ---
Nursing Note:Patient had a question about her prescription. Patient hung up before I could answer her question
== END 2024-03-13 02:56 | disposition left against medical advice (07) ==
PROVIDERS: Emergency Provider Student in an Organized Health Care Education/Training Program
DX: H10.021 Other mucopurulent conjunctivitis, right eye (principal); Z53.29 Procedure and treatment not carried out because of patient's decision for other reasons
CPT/HCPCS: 99283

== ENCOUNTER 2024-05-04 02:55 | Outpatient (CLI) | payer MEDICAID, SELFPAY ==
--- OUTSIDE RECORDS SUMMARY | 2024-05-04 02:58 | XMS_ITS | Encounter Summary ---
Author Organization [facility] Address [address] [place] [address] Care Team Providers Care Bindery Machine Setter/Set Up Operator Name Role Phone Unavailable Primary Care Provider Unavailabl e Encounter Details Date Type Department Care Team (Late st Contact Info) Description 08/17/2004 Results Only [facility] [address] [place] [address] Unknown, Provider, Social History Tobacco Use Types Packs/Day Years Used Date Smoking Tobacco: Never Assessed Sex and Gender Information Value Date Recorded Sex Assigned at Not on file Gender Identity Not on file Sexual Orientation Not on file documented as of this encounter Plan of Treatment Not on file documented as of this encounter Procedures Procedure Name Priority Date/Time Associated Diagnosis Comments VITAMIN B12 Routine 08/17/2004 20:08 EST documented in this encounter Results * VITAMIN B12 (08/17/2004 20:08 EST) Vitamin B-12 450 250 - 1100 pg/ml [facility] 08/17/2004 20:0 8 EST 08/19/2004 15:07 EST Provider Unknown CHEMISTRY & BLOOD GA S ORDERABLES [facility] [address] [place] [address] documented in this encounter Visit Diagnoses Not on filedocumented in this encounter
--- OUTSIDE RECORDS SUMMARY | 2024-05-04 02:58 | XMS_ITS | Encounter Summary ---
Author Organization [facility] Address [address] [place] [address] Care Team Providers Care Crown Assembly Machine Operator Name Role Phone Glendy Diallo MD Primary Care Provid er Unavailable Encounter Details Date Type Department Care Team (Late st Contact Info) Description 12/04/2023 Lab Requisition [facility] Pathology & Laboratory Medicine - [address] [address] Outr Resulting Lab, Provider Social History Tobacco Use Types Packs/Day Years Used Date Smoking Tobacco: Never Assessed Sex and Gender Information Value Date Recorded Sex Assigned at Not on file Gender Identity Not on file Sexual Orientation Not on file documented as of this encounter Plan of Treatment Not on file documented as of this encounter Procedures Procedure Name Priority Date/Time Associated Diagnosis Comments HIV 1/2 ANTIGEN AND ANTIBODY, 4TH GENERATION Routine 12/04/2023 11:53 EDT documented in this encounter Results * HIV 1/2 ANTIGEN AND ANTIBODY, 4TH GENERATION (12/04/2023 11:53 EDT) HIV 1 and 2 Antibody/p24 Antigen, 4th Generation Negative Negative 12/04/2023 23:38 EDT [facility] Comment:If acute HIV-1 infec tion is suspected in a high risk patient, submit plasma specimen for HIV-1 RNA quantitation test. Blood VENOUS BLOOD / Unknown 12/04/2023 11:53 EDT 12/04/2023 21:28 EDT Narrative [facility] - 12/04/2023 23:38 EDT Fourth Generation assay performed on the Siemens Centaur XPT. Provider Outr Resulting Lab IMMUNOLOGY A ND SEROLOGY ORDERABLES [facility] [address] [place] [id number] documented in this encounter Visit Diagnoses Not on filedocumented in this encounter Care Teams Crown Assembly Machine Operator Relationship Specialty Start Date End Date Glendy Diallo MD PCP - General 07/21/15 documented as of this encounter
--- OUTSIDE RECORDS SUMMARY | 2024-05-04 02:58 | XMS_ITS | Clinical Summary ---
Author Organization [facility] [place] [address] Care Team Providers Care Podiatric Physician Name Role Phone Unavailable Primary Care Provider Unavailabl e Social History Tobacco Use Types Packs/Day Years Used Date Smoking Tobacco: Never Assessed Sex and Gender Information Value Date Recorded Sex Assigned at Not on file Gender Identity Not on file Sexual Orientation Not on file Plan of Treatment Health Maintenance Due Date Last Done Comments HIV screen 2006 Hepatitis C Screening 2006 Hepatitis B vaccine (0-59 yrs) (1) 2007 Tdap adult 2007 Tetanus vaccine 2007 HPV test 2018 PAP Smear 2018 Covid-19 Vaccine (2022-24 season) 2023 Influenza (Flu) vaccine (1 o f 1 - Influenza standard series) 05/09/2024
--- OUTSIDE RECORDS SUMMARY | 2024-05-04 02:58 | XMS_ITS | Encounter Summary ---
Author Organization [facility] Address [address] [place] [address] Care Team Providers Care Bankruptcy Judge Name Role Phone Glendy Diallo MD Primary Care Provid er Unavailable Encounter Details Date Type Department Care Team (Late st Contact Info) Description 12/30/2019 Lab Requisition [facility] Pathology & Laboratory Medicine - [address] [address] Unknown, Provider, Social History Tobacco Use Types [...] 1/2 ANTIGEN AND ANTIBODY, 4TH GENERATION Routine 12/30/2019 12:40 EDT documented in this encounter Results * HIV 1/2 ANTIGEN AND ANTIBODY, 4TH GENERATION (12/30/2019 12:40 EDT) HIV 1 and 2 Antibody/p24 Antigen, 4th Generation Negative Negative 12/31/2019 10:06 EDT [facility] Comment: If acute HIV-1 infection is suspected in a high risk ??patient, submit plasma specimen for HIV-1 RNA quantitation test. Fourth Generation assay performed on the Siemens Longaccessaur. Blood VENOUS BLOOD / Unknown 12/30/2019 12:40 EDT 12/30/2019 20:49 EDT Provider Unknown IMMUNOLOGY AND SEROL UZMA ORDERABLES [facility] [address] [place] [address] documented in this encounter Visit Diagnoses Not on filedocumented in this encounter Additional Health Concerns Infection Onset Date Last Indicated Resolved Time COVID-19 06/03/2022 06/03/2022 06/23/2022 22:1 5 EDT documented as of this encounter Care Teams Bankruptcy Judge Relationship Specialty Start Date End Date Glendy Diallo MD PCP - General 07/21/15 documented as of this encounter
--- OUTSIDE RECORDS SUMMARY | 2024-05-04 02:58 | XMS_ITS | Encounter Summary ---
Author Organization [facility] Address [address] [place] [address] Care Team Providers Care Dental Ceramist Name Role Phone Glendy Diallo MD Primary Care Provid er Unavailable Encounter Details Date Type Department Care Team (Late st Contact Info) Description 10/12/2022 Lab Requisition [facility] Pathology & Laboratory Medicine - [address] [address] Outr Resulting Lab, Provider Social History Tobacco [...] Procedure Name Priority Date/Time Associated Diagnosis Comments ZZCOVID-19 TEST [facility] PCR Today 10/11/2022 18:45 EST COVID-19 TESTING Routine 10/11/2022 18:4 5 EST documented in this encounter Results * COVID-19 TEST [facility] PCR (10/11/2022 18:45 EST) Swab 10/11/2022 18:4 5 EST 10/12/2022 21:34 EST Provider Outr Resulting Lab MICROBIOLOGY - GENERAL ORDERABLES [facility] [address] [place] [address] * COVID-19 TESTING (10/11/2022 18:45 EST) COVID-19 rt-PCR Result Negative Negative 10/13/2022 12:11 EST [facility] Comment: This test has not been FDA cleared or approved. This test has been authorized by FDA under an EUA for use by authorized laboratories. This test has been authorized only for detection of nucleic acid from 2019-nCoV, not for any other viruses or pathogens. This test is only authorized for the duration of the declaration that circumstances exist justifying the authorization of emergency use of in vitro diagnostic tests for detection and/or diagnosis of 2019-nCoV under section 564(b)(1) of Act, 21 U.S.C ?? 360bbb-3(b) (1), unless the authorization is terminated or revoked sooner. Negative results do not preclude 2019-nCoV infection and should not be used as the sole basis for treatment or other patient management decisions. Negative results must be combined with clinical observations, patient history, and epidemiological information. Testing was performed using the waldo SARS-CoV-2 assay ([employer] on the Waldo 6800 System Performing Lab Waldo [address] [facility] 10/13/2022 12:11 EST [facility] Swab 10/11/2022 18:4 5 EST 10/12/2022 21:34 EST Provider Outr Resulting Lab MICROBIOLOGY - GENERAL ORDERABLES [facility] [address] [place] [address] documented in this encounter Visit Diagnoses Not on filedocumented in this encounter Care Teams Dental Ceramist Relationship Specialty Start Date End Date Glendy Diallo MD PCP - General 07/21/15 documented as of this encounter
--- OUTSIDE RECORDS SUMMARY | 2024-05-04 02:58 | XMS_ITS | Encounter Summary ---
Author Organization [facility] Address [address] [place] [address] Care Team Providers Care Company Tanker Truck Driver Name Role Phone Unavailable Primary Care Provider Unavailabl e Encounter Details Date Type Department Care Team (Late st Contact Info) Description 10/23/2003 Results Only [facility] [address] [place] [address] Unknown, Provider, Social History Tobacco Use Types Packs/Day Years Used Date Smoking Tobacco: Never Assessed Sex and Gender Information Value Date Recorded Sex Assigned at Not on file Gender Identity Not on file Sexual Orientation Not on file documented as of this encounter Plan of Treatment Not on file documented as of this encounter Procedures Procedure Name Priority Date/Time Associated Diagnosis Comments DRUG SCREEN 6 Routine 10/23/2003 19:18 EST documented in this encounter Results * DRUG SCREEN 6 (10/23/2003 19:18 EST) Amphetamine Screen, Urine Negative drug screen reporting Suitable for medical purposes only. Will not detect all drugs within class. Cutoff = 1000 ng/ml [facility] Barbiturate Screen, Urine Negative drug screen reporting Suitable for medical purposes only. Will not detect all drugs within class. Cutoff = 300 ng/ml [facility] Benzodiazepine Screen, Urine Negative drug screen reporting Suitable for medical purposes only. Will not detect all drugs within class. Cutoff = 300 ng/ml [facility] Cannabinoid Scrn, Ur Negative drug screen reporting Suitable for medical purposes only. Will not detect all drugs within class. Cutoff = 50 ng/ml [facility] Cocaine Metabolites, Ur Negative drug screen reporting Suitable for medical purposes only. Will not detect all drugs within class. Cutoff = 300 ng/ml [facility] Opiate Scrn, Ur Negative drug screen reporting Suitable for medical purposes only. Will not detect all drugs within class. Cutoff = 300 ng/ml [facility] 10/23/2003 19:1 8 EST 10/24/2003 21:15 EST Provider Unknown MD URINALYSIS ORDERABLE S Performing Organization Address City/State/[facility] Co de Phone Number [facility] [address] [place] [address] documented in this encounter Visit Diagnoses Not on filedocumented in this encounter
--- OUTSIDE RECORDS SUMMARY | 2024-05-04 02:58 | XMS_ITS | Encounter Summary ---
Author Organization [facility] Address [address] [place] [address] Care Team Providers Care Skate Hop Name Role Phone Glendy Diallo MD Primary Care Provid er Unavailable Encounter Details Date Type Department Care Team (Late st Contact Info) Description 12/08/2023 Lab Requisition [facility] Pathology & Laboratory Medicine - [address] [id number] Personal history of other complications of , childbirth and the puerperium; Encounter for supervision of normal , unspecified, unspecified trimester; Encounter for supervision of normal , unspecified, first trimester Social History Tobacco Use Types Packs/Day Years Used Date Smoking Tobacco: Never Assessed Sex and Gender Information Value Date Recorded Sex Assigned at Not on file Gender Identity Not on file Sexual Orientation Not on file documented as of this encounter Plan of Treatment Not on file documented as of this encounter Procedures Procedure Name Priority Date/Time Associated Diagnosis Comments PAP TEST Today 12/04/2023 11:00 EDT Personal history of other complications of , childbirth and the puerperium Encounter for supervision of normal , unspecified, unspecified trimester Encounter for supervision of normal , unspecified, first trimester HPV DNA DETECTION WITH GENOTYPING, PCR Today 12/04/2023 11:00 EDT Personal history of other complications of , childbirth and the puerperium Encounter for supervision of normal , unspecified, unspecified trimester Encounter for supervision of normal , unspecified, first trimester documented in this encounter Results * HUMAN PAPILLOMAVIRUS (HPV) DETECTION-HIGH RISK TYPES (12/04/2023 11:00 EDT) HPV other High Risk types, PCR Negative Negative 12/11/2023 17:50 EDT [facility] Comment:No E6 or E7 mRNA is detected from HPV types 16,18,31,33,35,39,45,51,52,56,58,59,66, and 68 by casino duty manager mediated amplification. Pap Test CERVIX UTERI STRUCTURE / Unknown 12/04/2023 11:00 EDT 12/10/2023 10:27 EDT Sylvia May [facility] MICROBIOLOGY - GENER AL ORDERABLES [facility] [address] [place] [id number] * PAP TEST (12/04/2023 11:00 EDT) Specimens A. Cervix and/or Endocervix , ThinPrep Imaging System with Manual Evaluation 12/11/2023 17:50 T [facility] Specimen Adequacy Satisfactory for Evaluation - transformation zone component present 12/11/2023 17:50 [facility] General Categorization Negative for intraepithelial lesion or malignancy 12/11/2023 17:50 T [facility] Attestation . 12/11/2023 17:50 [facility] at 1750 Clinical History SEE BELOW 12/11/19 24 17:50 T [facility] HPV The result for the Human Papillomavirus (HPV) Detection-High Risk Types is Negative. No E6 or E7 mRNA is detected from HPV types 16,18,31,33,35,39 ,45,51,52,56,58,5 9,66, and 68 by casino duty manager mediated amplification.Nina ting was performed on specimen [id number] and was resulted on 12/11/2023 1750 EDT by LUCI, LAB INSTRUMENT RESULTS IN 12/11/2023 17:50 EDT [facility] Performing Lab [facility] 12/11/2023 17:50 EDT [facility] Scanned Images 12/11/2023 17:50 EDT [facility] Pap Test CERVIX UTERI STRUCTURE / Unknown 12/04/2023 11:00 EDT 12/08/2023 16:08 EDT Sylvia May [facility] PATHOLOGY ORDERABLES [facility] [address] [place], [place] [id number] documented in this encounter Visit Diagnoses Diagnosis Personal history of other complications of , childbirth and the puerperium Encounter for supervision of normal , unspecified, unspecified trimester Encounter for supervision of normal , unspecified, first trimester documented in this encounter Care Teams Skate Hop Relationship Specialty Start Date End Date Glendy Diallo MD PCP - General 07/21/15 documented as of this encounter
--- OUTSIDE RECORDS SUMMARY | 2024-05-04 02:58 | XMS_ITS | Encounter Summary ---
Author Organization [facility] Address [address] [place] [address] Care Team Providers Care Chief I Dispatcher Name Role Phone Glendy Diallo MD Primary Care Provid er Unavailable Encounter Details Date Type Department Care Team (Late st Contact Info) Description 06/03/[address] [facility] Pathology & Laboratory Medicine - [address] [address] Outr Resulting Lab, Provider Social History Tobacco [...] Priority Date/Time Associated Diagnosis Comments ZZCOVID-19 TEST [facility] PCR Today 06/03/2022 11:29 EDT COVID-19 TESTING Routine 06/03/2022 11:2 9 EDT documented in this encounter Results * COVID-19 TEST [facility] PCR (06/03/2022 11:29 EDT) Swab 06/03/2022 11:2 9 EDT 06/04/2022 17:09 EDT Provider Outr Resulting Lab MICROBIOLOGY - GENERAL ORDERABLES [facility] [address] [place] [address] * (ABNORMAL) COVID-19 TESTING (06/03/2022 11:29 EDT) COVID-19 rt-PCR Result Positive( AA) Negative 06/05/2022 12:[address] [facility] Comment: This test has [...] the authorization is terminated or revoked sooner. Testing was performed using the waldo SARS-CoV-2 assay ([employer] on the Waldo 6800 System Performing Lab [employer]do [address] [facility] 06/05/2022 12:[address] [facility] Swab 06/03/2022 11:2 9 EDT 06/04/2022 17:09 EDT Provider Outr Resulting Lab MICROBIOLOGY - GENERAL ORDERABLES [facility] [address] [place] [address] documented in this encounter Visit Diagnoses Not on filedocumented in this encounter Additional Health Concerns Infection Onset Date Last Indicated Resolved Time COVID-19 06/03/2022 06/03/2022 06/23/2022 22:1 5 EDT documented as of this encounter Care Teams Chief I Dispatcher Relationship Specialty Start Date End Date Glendy Diallo MD PCP - General 07/21/15 documented as of this encounter
--- OUTSIDE RECORDS SUMMARY | 2024-05-04 02:58 | XMS_ITS | Encounter Summary ---
Author Organization [facility] Address [address] [place] [address] Care Team Providers Care Oncology Nurse Name Role Phone Glendy Diallo MD Primary Care Provid er Unavailable Encounter Details Date Type Department Care Team (Late st Contact Info) Description 12/24/2019 Lab Requisition [facility] Pathology & Laboratory Medicine - [address] [address] Unknown, Provider, Social History Tobacco Use Types Packs/Day Years Used Date Smoking Tobacco: Never Assessed Sex and Gender Information Value Date Recorded Sex Assigned at Not on file Gender Identity Not on file Sexual Orientation Not on file documented as of this encounter Plan of Treatment Not on file documented as of this encounter Procedures Procedure Name Priority Date/Time Associated Diagnosis Comments CHLAMYDIA/N. GONORRHOEAE AMPLIFIED NUCLEIC ACID Routine 12/23/2019 13:45 EDT documented in this encounter Results * CHLAMYDIA/N. GONORRHOEAE AMPLIFIED RNA (12/23/2019 13:45 EDT) Neisseria gonorrhoeae Result Negative Negative 12/27/2019 15:36 EDT [facility] Chlamydia trachomatis Result Negative Negative 12/27/2019 15:36 EDT [facility] Swab ENTIRE WALL OF CERVIX / Unknown Swab / Unknown 12/23/2019 13:45 EDT 12/24/2019 15:30 EDT Provider Unknown MICROBIOLOGY - GENER AL ORDERABLES [facility] [address] [place] [address] documented in this encounter Visit Diagnoses Not on filedocumented in this encounter Additional Health Concerns Infection Onset Date Last Indicated Resolved Time COVID-19 06/03/2022 06/03/2022 06/23/2022 22:1 5 EDT documented as of this encounter Care Teams Oncology Nurse Relationship Specialty Start Date End Date Glendy Diallo MD PCP - General 07/21/15 documented as of this encounter
--- OUTSIDE RECORDS SUMMARY | 2024-05-04 02:58 | XMS_ITS | Encounter Summary ---
Author Organization [facility] [place] [address] Care Team Providers Care Tile Picker Name Role Phone Unavailable Primary Care Provider Unavailabl e Encounter Details Date Type Department Care Team (Late st Contact Info) Description 01/01/2024 Telephone Obstetrics [place] [phone] Mayra Andrews Social History Tobacco Use Types Packs/Day Years Used Date Smoking Tobacco: Never Assessed Sex and Gender Information Value Date Recorded Sex Assigned at Not on file Gender Identity Not on file Sexual Orientation Not on file documented as of this encounter Plan of Treatment Not on file documented as of this encounter Visit Diagnoses Not on filedocumented in this encounter
--- OUTSIDE RECORDS SUMMARY | 2024-05-04 02:58 | XMS_ITS | Encounter Summary ---
Author Organization [facility] Address [address] [place] [address] Care Team Providers Care Manager Culture Name Role Phone Glendy Diallo MD Primary Care Provid er Unavailable Encounter Details Date Type Department Care Team (Late st Contact Info) Description 12/04/2023 Lab Requisition [facility] Pathology & Laboratory Medicine - [address] [address] Outr Resulting Lab, Provider Social History Tobacco [...] Procedure Name Priority Date/Time Associated Diagnosis Comments HEPATITIS C AB W REFLEX TO HCV RNA BY PCR Routine 12/04/2023 11:53 EDT HEPATITIS B SURFACE ANTIGEN Routine 12/04/2023 11:53 EDT documented in this encounter Results * HEPATITIS B SURFACE ANTIGEN (12/04/2023 11:53 EDT) Hep B Surface Ag Negative Negative 12/04/2023 22:44 EDT [facility] Blood VENOUS BLOOD / Unknown 12/04/2023 11:53 EDT 12/04/2023 21:28 EDT Provider Outr Resulting Lab CHEMISTRY & BLOOD GAS ORDERABLES [facility] [address] [place] [address] * HEPATITIS C AB W REFLEX TO HCV RNA BY PCR (12/04/2023 11:53 EDT) Hep C Antibody Negative Negative 12/04/2023 23:14 EDT [facility] Blood VENOUS BLOOD / Unknown 12/04/2023 11:53 EDT 12/04/2023 21:28 EDT Provider Outr Resulting Lab CHEMISTRY & BLOOD GAS ORDERABLES [facility] [address] [place] [address] documented in this encounter Visit Diagnoses Not on filedocumented in this encounter Care Teams Manager Culture Relationship Specialty Start Date End Date Glendy Diallo MD PCP - General 07/21/15 documented as of this encounter
--- OUTSIDE RECORDS SUMMARY | 2024-05-04 02:58 | XMS_ITS | Encounter Summary ---
Author Organization [facility] Address [address] [place] [address] Care Team Providers Care Machine Strap Buckler Name Role Phone Glendy Diallo MD Primary Care Provid er Unavailable Encounter Details Date Type Department Care Team (Late st Contact Info) Description 12/04/2023 Lab Requisition [facility] Pathology & Laboratory Medicine - [address] [address] Outr Resulting Lab, Provider Social History Tobacco [...] Procedure Name Priority Date/Time Associated Diagnosis Comments RUBELLA IGG ANTIBODY Routine 12/04/2023 11:53 EDT VARICELLA IGG ANTIBODY Routine 12/04/2023 11:53 EDT documented in this encounter Results * VARICELLA IGG ANTIBODY (12/04/2023 11:53 EDT) Varicella IgG Ab Positive See Note 12/05/2023 10:33 EDT [facility] Comment:Presence of detectab le Varicella Zoster virus IgG antibodies. Blood VENOUS BLOOD / Unknown 12/04/2023 11:53 EDT 12/04/2023 21:28 EDT Provider Outr Resulting Lab IMMUNOLOGY A ND SEROLOGY ORDERABLES [facility] [address] [place] [address] * RUBELLA IGG ANTIBODY (12/04/2023 11:53 EDT) Rubella IgG Ab Positive See Note 12/05/2023 11:09 EDT [facility] Comment:Positive for IgG ant ibodies to Rubella virus. Blood VENOUS BLOOD / Unknown 12/04/2023 11:53 EDT 12/04/2023 21:28 EDT Provider Outr Resulting Lab CHEMISTRY & BLOOD GAS ORDERABLES [facility] [address] [place] [address] documented in this encounter Visit Diagnoses Not on filedocumented in this encounter Care Teams Machine Strap Buckler Relationship Specialty Start Date End Date Glendy Diallo MD PCP - General 07/21/15 documented as of this encounter
--- OUTSIDE RECORDS SUMMARY | 2024-05-04 02:58 | XMS_ITS | Encounter Summary ---
Author Organization [facility] Address [address] [place] [address] Care Team Providers Care Archaeologist Name Role Phone Glendy Diallo MD Primary Care Provid er Unavailable Encounter Details Date Type Department Care Team (Late st Contact Info) Description 12/04/2023 Lab Requisition [facility] Pathology & Laboratory Medicine - [address] [address] Outr Resulting Lab, Provider Social History Tobacco [...] Associated Diagnosis Comments CHLAMYDIA/N. GONORRHOEAE AMPLIFIED NUCLEIC ACID, THINPREP Today 12/04/2023 11:00 EDT documented in this encounter Results * CHLAMYDIA/N. GONORRHOEAE AMPLIFIED RNA, THINPREP (12/04/2023 11:00 EDT) Neisseria gonorrhoeae Result Negative Negative 12/05/2023 15:34 EDT [facility] Chlamydia trachomatis Result Negative Negative 12/05/2023 15:34 EDT [facility] Pap Test CERVIX UTERI STRUCTURE / Unknown 12/04/2023 11:00 EDT 12/05/2023 9:40 EDT Provider Outr Resulting Lab MICROBIOLOGY - GENERAL ORDERABLES [facility] [address] [place] [address] documented in this encounter Visit Diagnoses Not on filedocumented in this encounter Care Teams Archaeologist Relationship Specialty Start Date End Date Glendy Diallo MD PCP - General 07/21/15 documented as of this encounter
--- OUTSIDE RECORDS SUMMARY | 2024-05-04 02:58 | XMS_ITS | Encounter Summary ---
Author Organization [facility] Address [address] [place] [address] Care Team Providers Care Marine Habitat Resource Specialist Name Role Phone Glendy Diallo MD Primary Care Provid er Unavailable Encounter Details Date Type Department Care Team (Late st Contact Info) Description 12/27/2019 Lab Requisition [facility] Pathology & Laboratory Medicine - [address] [address] Sergio Olvera CNM [address] [address] Encounter for other general examination Social History Tobacco Use Types Packs/Day Years Used Date Smoking Tobacco: Never Assessed Sex and Gender Information Value Date Recorded Sex Assigned at Not on file Gender Identity Not on file Sexual Orientation Not on file documented as of this encounter Plan of Treatment Not on file documented as of this encounter Procedures Procedure Name Priority Date/Time Associated Diagnosis Comments PAP TEST Today 12/23/2019 13:45 EDT Encounter for other general examination HPV DNA DETECTION WITH GENOTYPING, PCR Today 12/23/2019 13:45 EDT Encounter for other general examination documented in this encounter Results * HUMAN PAPILLOMAVIRUS (HPV) DETECTION-HIGH RISK TYPES (12/23/2019 13:45 EDT) HPV other High Risk types, PCR Negative Negative 12/30/2019 14:02 EDT [facility] Comment:No E6 or E7 mRNA is detected from HPV types 16,18,31,33,35,39,45,51,52,56,58,59,66, and 68 by licensed master social worker mediated amplification. Papanicolaou smear specimen (specimen) CERVIX UTERI STRUCTURE / Unknown 12/23/2019 13:45 EDT 12/29/2019 10:44 EDT Sergio Olvera [facility] MICROBIOLOGY - GENER AL ORDERABLES [facility] [address] [place] [address] * PAP TEST (12/23/2019 13:45 EDT) Specimens A. Cervix and/or Endocervix, ThinPrep Imaging System with Manual Evaluation 12/31/2019 13:31 [facility] Specimen Adequacy Satisfactory for Evaluation - transformation zone component present 12/31/2019 13:31 [facility] General Categorization Negative for intraepithelial lesion or malignancy 12/31/2019 13:31 [facility] Descriptive Diagnosis Fungal organisms present morphologically consistent with Emilie species. 12/31/2019 13:31 [facility] Attestation By the signature below, the attending physician certifies that they have personally conducted a gross and/or microscopic examination of the described specimens and rendered or confirmed the above diagnosis. 12/31/2019 13:31 [facility] at 1331 Clinical History NONE 12/31/19 20 13:31 [facility] HPV The result for the Human Papillomavirus (HPV) Detection-High Risk Types is Negative. No E6 or E7 mRNA is detected from HPV types 16,18,31,33,35,39 ,45,51,52,56,58,5 9,66, and 68 by licensed master social worker mediated amplification.Nina ting was performed on specimen [id number] and was resulted on 12/30/2019 1357 EDT by LUCI, LAB INSTRUMENT RESULTS IN 12/31/2019 13:31 [facility] Scanned Images 12/31/2019 13:31 [facility] Papanicolaou smear specimen (specimen) CERVIX UTERI STRUCTURE / Unknown 12/23/2019 13:45 EDT 12/27/2019 9:01 EDT Sergio Olvera [facility] PATHOLOGY ORDERABLES [facility] [address] [place] [address] documented in this encounter Visit Diagnoses Diagnosis Encounter for other general examination documented in this encounter Additional Health Concerns Infection Onset Date Last Indicated Resolved Time COVID-19 06/03/2022 06/03/2022 06/23/2022 22:1 5 EDT documented as of this encounter Care Teams Marine Habitat Resource Specialist Relationship Specialty Start Date End Date Glendy Diallo MD PCP - General 07/21/15 documented as of this encounter
--- OUTSIDE RECORDS SUMMARY | 2024-05-04 02:58 | XMS_ITS | Encounter Summary ---
Author Organization [facility] Address [facility] [place] [address] Care Team Providers Care Salad Chef Name Role Phone Unavailable Primary Care Provider Unavailabl e Reason for Referral * Consultation (Urgent) - Closed Specialty Diagnoses / Procedures Referred By Padmini t Referred To Contact Obstetrics and Gynecology Diagnoses Antepartum multigravida of advanced maternal age Positive result on maternal serum screen for trisomy 18 Abnormal chromosomal and genetic finding on screening mother Cassy Calvillo CNM [address] [place] [address] [address] [place] [address] [facility] [address] [address] Referral ID Status Reason Start Date Expiration Date V isits Requested Visits Authorized [id number] Closed Consult, Test & Treat PCP Updated and/or Approved 12/18/2023 12/17/2024 6 6 Encounter Details Date Type Department Care Team (Late st Contact Info) Description 12/18/2023 Transcribe Orders eDH Incoming Referrals [phone] Cassy Calvillo CNM [address] [place] [address] [address] [place], [place] [id number] Antepartum multigravida of advanced maternal age; Positive result on maternal serum screen for trisomy 18; Abnormal chromosomal and genetic finding on screening mother Social History Tobacco Use Types Packs/Day Years Used Date Smoking Tobacco: Never Assessed Sex and Gender Information Value Date Recorded Sex Assigned at Not on file Gender Identity Not on file Sexual Orientation Not on file documented as of this encounter Plan of Treatment Scheduled Referrals Name Type Priority Associated Diagnoses Orde r Schedule Referral to Maternal Medicine Outpatient Referral Urgent Antepartum multigravida of advanced maternal age Positive result on maternal serum screen for trisomy 18 Abnormal chromosomal and genetic finding on screening mother Ordered: 12/18/2023 documented as of this encounter Visit Diagnoses Diagnosis Antepartum multigravida of advanced maternal age Positive result on maternal serum screen for trisomy 18 Abnormal chromosomal and genetic finding on screening mother Abnormal findings on screening documented in this encounter
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
--- OUTSIDE RECORDS SUMMARY | 2024-05-04 02:58 | XMS_ITS | Encounter Summary ---
Author Organization [facility] Address [address] [place] [address] Care Team Providers Care Fairing Man Name Role Phone Glendy Diallo MD Primary Care Provid er Unavailable Encounter Details Date Type Department Care Team (Late st Contact Info) Description 12/30/2019 Lab Requisition [facility] Pathology & Laboratory Medicine - [address] [address] Unknown, Provider, Social History Tobacco Use Types Packs/Day Years Used Date Smoking Tobacco: Never Assessed Sex and Gender Information Value Date Recorded Sex Assigned at Not on file Gender Identity Not on file Sexual Orientation Not on file documented as of this encounter Plan of Treatment Not on file documented as of this encounter Procedures Procedure Name Priority Date/Time Associated Diagnosis Comments HOLD SST Today 12/30/2019 12:40 EDT HEPATITIS C AB W REFLEX TO HCV RNA BY PCR Today 12/30/2019 12:40 EDT HEPATITIS B SURFACE ANTIGEN Today 12/30/2019 12:40 EDT documented in this encounter Results * HOLD SST (12/30/2019 12:40 EDT) Hold Hold 12/30/2019 22:01 EDT [facility] Blood VENOUS BLOOD / Unknown 12/30/2019 12:40 EDT 12/30/2019 20:45 EDT Provider Unknown LAB INFO SERVICE AND SUPPORT & PHONE RESULT Performing Organization Address City/[facility]/ZIP Co de Phone Number [facility] [address] [place] [address] * HEPATITIS B SURFACE ANTIGEN (12/30/2019 12:40 EDT) Hep B Surface Ag Negative Negative 12/31/2019 10:35 EDT [facility] Blood VENOUS BLOOD / Unknown 12/30/2019 12:40 EDT 12/30/2019 20:44 EDT Provider Unknown CHEMISTRY & BLOOD GA S ORDERABLES Performing Organization Address [facility] Co de Phone Number [facility] [address] [place] [address] * HEPATITIS C AB W REFLEX TO HCV RNA BY PCR (12/30/2019 12:40 EDT) Hep C Antibody Negative Negative 12/31/2019 10:04 EDT [facility] Blood VENOUS BLOOD / Unknown 12/30/2019 12:40 EDT 12/30/2019 20:45 EDT Provider Unknown CHEMISTRY & BLOOD GA S ORDERABLES Performing Organization Address [facility] Co de Phone Number [facility] [address] [place] [address] documented in this encounter Visit Diagnoses Not on filedocumented in this encounter Additional Health Concerns Infection Onset Date Last Indicated Resolved Time COVID-19 06/03/2022 06/03/2022 06/23/2022 22:1 5 EDT documented as of this encounter Care Teams Fairing Man Relationship Specialty Start Date End Date Glendy Diallo MD PCP - General 07/21/15 documented as of this encounter
--- OUTSIDE RECORDS SUMMARY | 2024-05-04 02:58 | XMS_ITS | Encounter Summary ---
Author Organization [facility] Address [address] [place] [address] Care Team Providers Care Corduroy Cutter Operator Name Role Phone Glendy Diallo MD Primary Care Provid er Unavailable Encounter Details Date Type Department Care Team (Late st Contact Info) Description 12/30/2019 Lab Requisition [facility] Pathology & Laboratory Medicine - [address] [address] Unknown, Provider, Social History Tobacco Use Types [...] Associated Diagnosis Comments RUBELLA IGG ANTIBODY Routine 12/30/2019 12:40 EDT VARICELLA IGG ANTIBODY Routine 12/30/2019 12:40 EDT documented in this encounter Results * VARICELLA IGG ANTIBODY (12/30/2019 12:40 EDT) Varicella IgG Ab Positive See Note 12/31/2019 10:20 EDT [facility] Comment:Presence of detectab le Varicella Zoster virus IgG antibodies. Blood VENOUS BLOOD / Unknown 12/30/2019 12:40 EDT 12/30/2019 21:01 EDT Provider Unknown IMMUNOLOGY AND SEROL UZMA ORDERABLES [facility] [address] [place] [address] * RUBELLA IGG ANTIBODY (12/30/2019 12:40 EDT) Rubella IgG Ab Positive See Note 12/31/2019 10:20 EDT [facility] Comment:Positive for IgG ant ibodies to Rubella virus. Blood VENOUS BLOOD / Unknown 12/30/2019 12:40 EDT 12/30/2019 21:01 EDT Provider Unknown CHEMISTRY & BLOOD GA S ORDERABLES [facility] [address] [place] [address] documented in this encounter Visit Diagnoses Not on filedocumented in this encounter Additional Health Concerns Infection Onset Date Last Indicated Resolved Time COVID-19 06/03/2022 06/03/2022 06/23/2022 22:1 5 EDT documented as of this encounter Care Teams Corduroy Cutter Operator Relationship Specialty Start Date End Date Glendy Diallo MD PCP - General 07/21/15 documented as of this encounter
--- OUTSIDE RECORDS SUMMARY | 2024-05-04 02:58 | XMS_ITS | Encounter Summary ---
Author Organization [facility] Address [address] [place] [address] Care Team Providers Care Brewery Technician Name Role Phone Glendy Diallo MD Primary Care Provid er Unavailable Encounter Details Date Type Department Care Team (Late st Contact Info) Description 12/04/[address] [facility] Pathology & Laboratory Medicine - [facility] [address] [place] [address] Outr Resulting Lab, Provider Social History Tobacco [...] Procedure Name Priority Date/Time Associated Diagnosis Comments FENTANYL SCREEN WITH REFLEX TO CONFIRMATION, U Routine 12/04/2023 11:00 EDT documented in this encounter Results * FENTANYL SCREEN WITH REFLEX TO CONFIRMATION, U (12/04/2023 11:00 EDT) Fentanyl Screen with Reflex to Confirmation, U Negative <1 ng/mL 12/05/2023 12:06 EDT [facility] Urine URINE / Unknown 12/04/2023 1 1:00 EDT 12/04/2023 21:28 EDT Narrative [facility] - 12/05/2023 12:06 EDT Testing performed by: [facility] [address] [place] [address] [address] [address] Quarrying Manager: Ramu Antoine MD; CLIA # [id number] Provider Outr Resulting Lab URINALYSIS O RDERABLES [facility] [address] [facility], [address] [phone] documented in this encounter Visit Diagnoses Not on filedocumented in this encounter Care Teams Brewery Technician Relationship Specialty Start Date End Date Glendy Diallo MD PCP - General 07/21/15 documented as of this encounter
--- OUTSIDE RECORDS SUMMARY | 2024-05-04 02:58 | XMS_ITS | Encounter Summary ---
Author Organization [facility] Address [address] [place] [address] Care Team Providers Care Knitting Teacher Name Role Phone Glendy Diallo MD Primary Care Provid er Unavailable Encounter Details Date Type Department Care Team (Late st Contact Info) Description 12/29/2023 Lab Requisition [facility] Pathology & Laboratory Medicine - [address] [address] Outr Resulting Lab, Provider Social History Tobacco [...] Comments CHLAMYDIA/N. GONORRHOEAE AMPLIFIED NUCLEIC ACID Routine 12/28/2023 17:40 EDT documented in this encounter Results * CHLAMYDIA/N. GONORRHOEAE AMPLIFIED RNA (12/28/2023 17:40 EDT) Neisseria gonorrhoeae Result Negative Negative 12/30/2023 14:01 EDT [facility] Chlamydia trachomatis Result Negative Negative 12/30/2023 14:01 EDT [facility] Urine URINE / Unknown 12/28/2023 1 7:40 EDT 12/29/2023 17:05 EDT Narrative [facility] - 12/30/2023 14:01 EDT A first catch urine specimen is acceptable for detection of Gonorrhea and Chlamydia, but might detect up to 10% fewer infections when compared with vaginal and endocervical swab samples. Provider Outr Resulting Lab MICROBIOLOGY - GENERAL ORDERABLES [facility] [address] [place] [address] documented in this encounter Visit Diagnoses Not on filedocumented in this encounter Care Teams Knitting Teacher Relationship Specialty Start Date End Date Glendy Diallo MD PCP - General 07/21/15 documented as of this encounter
--- OUTSIDE RECORDS SUMMARY | 2024-05-04 02:58 | XMS_ITS | Referral Summary ---
Author Organization Health system Address [address] [place] [address] Care Team Providers Care Informatica Architect Name Role Phone Glendy Diallo MD Primary Care Provid er Unavailable Social History Tobacco Use Types Packs/Day Years Used Date Smoking Tobacco: Never Assessed Sex and Gender Information Value Date Recorded Sex Assigned at Not on file Gender Identity Not on file Sexual Orientation Not on file Plan of Treatment Not on file Procedures Procedure Name Priority Date/Time Associated Diagnosis Comments HEPATITIS C AB W REFLEX TO HCV RNA BY PCR Routine 12/04/2023 11:53 EDT from Last 3 Months or Most Recently Relevant to Health Maintenance Results * HEPATITIS C AB W REFLEX TO HCV RNA BY PCR (12/04/2023 11:53 EDT) Hep C Antibody Negative Negative 12/04/2023 23:14 EDT [facility] Blood VENOUS BLOOD / Unknown 12/04/2023 11:53 EDT 12/04/2023 21:28 EDT Provider Outr Resulting Lab CHEMISTRY & BLOOD GAS ORDERABLES [facility] [address] [place], [place] [address] from Last 3 Months or Most Recently Relevant to Health Maintenance Care Teams Informatica Architect Relationship Specialty Start Date End Date Glendy Diallo MD PCP - General 07/21/15
--- OUTSIDE RECORDS SUMMARY | 2024-05-04 02:58 | XMS_ITS | Encounter Summary ---
Author Organization [facility] Address [address] [place] [address] Care Team Providers Care Rainbow Trout Farm Manager Name Role Phone Unavailable Primary Care Provider Unavailabl e Encounter Details Date Type Department Care Team (Late st Contact Info) Description 10/12/2003 Results Only [facility] [address] [place] [address] Unknown, Provider, Social History Tobacco Use Types Packs/Day Years Used Date Smoking Tobacco: Never Assessed Sex and Gender Information Value Date Recorded Sex Assigned at Not on file Gender Identity Not on file Sexual Orientation Not on file documented as of this encounter Plan of Treatment Not on file documented as of this encounter Procedures Procedure Name Priority Date/Time Associated Diagnosis Comments COMMENT Routine 10/12/2003 19:09 EST DRUG SCREEN 6 Routine 10/12/2003 19:09 EST documented in this encounter Results * COMMENT (10/12/2003 19:09 EST) UA Comment Refractometer specific gravity 1.001 [facility] 10/12/2003 19:0 9 EST 10/13/2003 21:20 EST Provider Unknown URINALYSIS ORDERABLE S [facility] [address] [place] [address] * DRUG SCREEN 6 (10/12/2003 19:09 EST) Amphetamine Screen, Urine Negative drug screen [...] Cutoff = 300 ng/ml [facility] 10/12/2003 19:0 9 EST 10/13/2003 21:20 EST Provider Unknown MD URINALYSIS ORDERABLE S [facility] [address] [place] [address] documented in this encounter Visit Diagnoses Not on filedocumented in this encounter
--- OUTSIDE RECORDS SUMMARY | 2024-05-04 02:58 | XMS_ITS | Clinical Summary ---
Author Organization [facility] Address [address] [place] [address] Care Team Providers Care Leather Grainer Name Role Phone Glendy Diallo MD Primary Care Provid er Unavailable Social History Tobacco Use Types Packs/Day Years Used Date Smoking Tobacco: Never Assessed Sex and Gender Information Value Date Recorded Sex Assigned at Not on file Gender Identity Not on file Sexual Orientation Not on file Plan of Treatment Health Maintenance Due Date Last Done Comments Hepatitis B Vaccine (1 of 3 - 19+ 3-dose series) 2007 COVID-19 Vaccine (2022- season) 2023 Hepatitis C Screen Completed 12/04/2023, 12/30/2019 Procedures Procedure Name Priority Date/Time Associated Diagnosis Comments HEPATITIS C AB W REFLEX TO HCV RNA BY PCR Routine 12/04/2023 11:53 EDT from Last 3 Months or Most Recently Relevant to Health Maintenance Results * HEPATITIS C AB W REFLEX TO HCV RNA BY PCR (12/04/2023 11:53 EDT) Hep C Antibody Negative Negative 12/04/2023 23:14 EDT [facility] Blood VENOUS BLOOD / Unknown 12/04/2023 11:53 EDT 12/04/2023 21:28 EDT Provider Outr Resulting Lab CHEMISTRY & BLOOD GAS ORDERABLES [facility] [address] [place] [address] from Last 3 Months or Most Recently Relevant to Health Maintenance Care Teams Leather Grainer Relationship Specialty Start Date End Date Glendy Diallo MD PCP - General 07/21/15
--- OUTSIDE RECORDS SUMMARY | 2024-05-04 02:58 | XMS_ITS | Encounter Summary ---
Author Organization [facility] Address [address] [place] [address] Care Team Providers Care Underwriting Support Specialist Name Role Phone Glendy Diallo MD Primary Care Provid er Unavailable Encounter Details Date Type Department Care Team (Late st Contact Info) Description 06/02/2020 Lab Requisition [facility] Pathology & Laboratory Medicine - [address] [address] Outr Resulting Lab, Provider Social History Tobacco [...] Comments ZZCOVID-19 TEST [facility] PCR Today 06/02/2020 20:00 EDT COVID-19 TESTING Routine 06/02/2020 20:0 0 EDT documented in this encounter Results * COVID-19 TEST [facility] PCR (06/02/2020 20:00 EDT) Swab ENTIRE NASOPHARYNX / Unknown 06/02/2020 20:00 EDT 06/03/2020 9:56 EDT Provider Outr Resulting Lab MICROBIOLOGY - GENERAL ORDERABLES [facility] [address] [place] [address] * COVID-19 TESTING (06/02/2020 20:00 EDT) COVID-19 rt-PCR Result Negative Negative 06/03/2020 12:47 EDT [facility] Comment: This test has [...] clinical observations, patient history, and epidemiological information. Performed on the Family-Mingleher Fusion instrument Performing Lab [place] [facility] 06/03/2020 12:47 EDT [facility] Swab 06/02/2020 20:0 0 EDT 06/03/2020 9:56 EDT Provider Outr Resulting Lab MICROBIOLOGY - GENERAL ORDERABLES [facility] [address] [place] [address] documented in this encounter Visit Diagnoses Not on filedocumented in this encounter Additional Health Concerns Infection Onset Date Last Indicated Resolved Time COVID-19 06/03/2022 06/03/2022 06/23/2022 22:1 5 EDT documented as of this encounter Care Teams Underwriting Support Specialist Relationship Specialty Start Date End Date Glendy Diallo MD PCP - General 07/21/15 documented as of this encounter
--- OUTSIDE RECORDS SUMMARY | 2024-05-04 02:58 | XMS_ITS | Encounter Summary ---
Author Organization [facility] Address [address] [place] [address] Care Team Providers Care Garment Form Assembler Name Role Phone Unavailable Primary Care Provider Unavailabl e Encounter Details Date Type Department Care Team (Late st Contact Info) Description 09/22/2003 Results Only [facility] - [place] [facility] [address] [place] [address] Unknown, Provider, Social History Tobacco Use Types [...] Associated Diagnosis Comments DRUG SCREEN 6 Routine 09/22/2003 18:00 EST documented in this encounter Results * DRUG SCREEN 6 (09/22/2003 18:00 EST) Amphetamine Screen, Urine Negative drug screen [...] Cutoff = 300 ng/ml [facility] 09/22/2003 18:0 0 EST 09/23/2003 22:02 EST Provider Unknown MD URINALYSIS ORDERABLE S Performing Organization Address City/State[facility] Co de Phone Number [facility] [address] [place] [address] documented in this encounter Visit Diagnoses Not on filedocumented in this encounter
[2024-05-04 14:24] LABS: HCT 36.2 % (36.0-46.0); HGB 12.4 g/dL (11.2-15.7); MCH 31.2 pg (27.0-33.0); MCHC 34.3 % (32.0-36.0); MCV 91 fL (80-95); MPV 8.7 fL (8.0-11.0); Platelet Count 246 10^3/uL (130-400); RBC 3.97 10^6/uL (3.93-5.22); RDW 12.7 % (11.7-14.6); RDW-SD 41.8 fL; WBC 10.37 10^3/uL (4.4-10.8)
[2024-05-04 15:02] LABS: Glucose,1 Hr (Glucola) 113 mg/dL (80-140)
[2024-05-04 15:11] LABS: ALT 16 U/L (14-59); AST 10 U/L (15-37); Albumin 2.9 g/dL (3.4-5.0); Alkaline Phosphatase 127 U/L (46-116); Anion Gap 10.5 mmol/L (3-11); BUN 5 mg/dL (7-18); Bilirubin, Total 0.37 mg/dL (0.2-1.0); CO2 22.5 mmol/L (21.0-32.0); CREATININE 0.5 mg/dL (0.55-1.02); Calcium 8.8 mg/dL (8.5-10.1); Chloride 102 mmol/L (98-107); Estimated GFR 125.36 (mL/min/1.73m2); Glucose 112 mg/dL (74-106); Potassium 3.8 mmol/L (3.5-5.1); Sodium 135 mmol/L (136-145); Total Protein 7.2 g/dL (6.4-8.2)
== END 2024-05-04 02:56 | disposition home or self-care (01) ==
LOC: LBO 02:55
PROVIDERS: Advanced Practice Midwife; Visit Provider Advanced Practice Midwife
DX: Z34.93 Encounter for supervision of normal pregnancy, unspecified, third trimester (principal); Z87.59 Personal history of other complications of pregnancy, childbirth and the puerperium
CPT/HCPCS: 36415; 80053; 82950; 85027

== ENCOUNTER 2024-05-05 01:49 | Outpatient (CLI) | payer MEDICAID, SELFPAY ==
--- OUTSIDE RECORDS SUMMARY | 2024-05-05 01:52 | XMS_ITS | Encounter Summary ---
Author Organization [facility] Address [address] [place] [address] Care Team Providers Care Youth Pastor Name Role Phone Glendy Diallo MD Primary Care Provid er Unavailable Encounter Details Date Type Department Care Team (Late st Contact Info) Description 12/30/2019 Lab Requisition [facility] Pathology & Laboratory Medicine - [address] [address] Unknown, Provider, Social History Tobacco Use Types [...] 4th Generation Negative Negative 12/31/2019 10:[address] [facility] Comment: If acute HIV-1 infection is suspected in a high risk ??patient, submit plasma specimen for HIV-1 RNA quantitation test. Fourth Generation assay performed on the Siemens Jobspottingaur. Blood VENOUS BLOOD / Unknown 12/30/2019 12:40 EDT 12/30/2019 20:49 EDT Provider Unknown IMMUNOLOGY AND SEROL UZMA ORDERABLES [facility] [address] [place] [address] documented in this encounter Visit Diagnoses Not on filedocumented in this encounter Additional Health Concerns Infection Onset Date Last Indicated Resolved Time COVID-19 06/03/2022 06/03/2022 06/23/2022 22:1 5 EDT documented as of this encounter Care Teams Youth Pastor Relationship Specialty Start Date End Date Glendy Diallo MD PCP - General 07/21/15 documented as of this encounter
--- OUTSIDE RECORDS SUMMARY | 2024-05-05 01:52 | XMS_ITS | Encounter Summary ---
Author Organization [facility] Address [address] [place] [address] Care Team Providers Care Ripsaw Matcher Name Role Phone Glendy Diallo MD Primary Care Provid er Unavailable Encounter Details Date Type Department Care Team (Late st Contact Info) Description 12/29/2023 Lab Requisition [facility] Pathology & Laboratory Medicine - [address] [address] Outr Resulting Lab, Provider Social History Tobacco [...] gonorrhoeae Result Negative Negative 12/30/2023 14:01 EDT [facility] Chlamydia trachomatis Result Negative Negative 12/30/2023 14:01 EDT [facility] Urine URINE / Unknown 12/28/2023 1 7:40 EDT 12/29/2023 17:05 EDT Narrative [facility] - 12/30/2023 14:01 EDT A first catch urine specimen is acceptable for detection of Gonorrhea and Chlamydia, but might detect up to 10% fewer infections when compared with vaginal and endocervical swab samples. Provider Outr Resulting Lab MICROBIOLOGY - GENERAL ORDERABLES [facility] [address] [place] [id number] documented in this encounter Visit Diagnoses Not on filedocumented in this encounter Care Teams Ripsaw Matcher Relationship Specialty Start Date End Date Glendy Diallo MD PCP - General 07/21/15 documented as of this encounter
--- OUTSIDE RECORDS SUMMARY | 2024-05-05 01:52 | XMS_ITS | Encounter Summary ---
Author Organization [facility] Address [address] [place] [address] Care Team Providers Care Package Lift Operator Name Role Phone Unavailable Primary Care Provider Unavailabl e Encounter Details Date Type Department Care Team (Latest Contact Info) Description 05/15/2000 16:29 EDT Hospital Encounter [facility] Emergency Department - [facility] [address] [place] [address] Emergency, Default, MD Discharge Disposition: Home or [...]
--- OUTSIDE RECORDS SUMMARY | 2024-05-05 01:52 | XMS_ITS | Encounter Summary ---
Author Organization [facility] Address [address] [place] [address] Care Team Providers Care Bus Washer Name Role Phone Glendy Diallo MD Primary Care Provid er Unavailable Encounter Details Date Type Department Care Team (Late st Contact Info) Description 12/08/2023 Lab Requisition [facility] Pathology & Laboratory Medicine - [address] [id number] Personal history of other complications of , [...] types, PCR Negative Negative 12/11/2023 17:50 EDT [facility] Comment:No E6 or E7 mRNA is detected from HPV types 16,18,31,33,35,39,45,51,52,56,58,59,66, and 68 by creeler mediated amplification. Pap Test CERVIX UTERI STRUCTURE / Unknown 12/04/2023 11:00 EDT 12/10/2023 10:27 EDT Sylvia May [facility] MICROBIOLOGY - GENER AL ORDERABLES [facility] [address] [place] [address] * PAP TEST (12/04/2023 11:00 EDT) Specimens A. Cervix and/or Endocervix , ThinPrep Imaging System with Manual Evaluation 12/11/2023 17:50 T [facility] Specimen Adequacy Satisfactory for Evaluation - transformation zone component present 12/11/2023 17:50 [facility] General Categorization Negative for intraepithelial lesion or malignancy 12/11/2023 17:50 T [facility] Attestation . 12/11/2023 17:50 [facility] at 1750 Clinical History SEE BELOW 12/11/19 24 17:50 T [facility] HPV The result for the Human Papillomavirus (HPV) Detection-High Risk Types is Negative. No E6 or E7 mRNA is detected from HPV types 16,18,31,33,35,39 ,45,51,52,56,58,5 9,66, and 68 by creeler mediated amplification.Nina ting was performed on specimen [id number] and was resulted on 12/11/2023 1750 EDT by LUCI, LAB INSTRUMENT RESULTS IN 12/11/2023 17:50 EDT [facility] Performing Lab [facility] 12/11/2023 17:50 EDT [facility] Scanned Images 12/11/2023 17:50 EDT [facility] Pap Test CERVIX UTERI STRUCTURE / Unknown 12/04/2023 11:00 EDT 12/08/2023 16:08 EDT Sylvia May [facility] PATHOLOGY ORDERABLES [facility] [address] [place], [place] [id number] documented in this encounter Visit Diagnoses Diagnosis Personal history of other complications of , childbirth and the puerperium Encounter for supervision of normal , unspecified, unspecified trimester Encounter for supervision of normal , unspecified, first trimester documented in this encounter Care Teams Bus Washer Relationship Specialty Start Date End Date Glendy Diallo MD PCP - General 07/21/15 documented as of this encounter
--- OUTSIDE RECORDS SUMMARY | 2024-05-05 01:52 | XMS_ITS | Encounter Summary ---
Author Organization [facility] Address [address] [place] [address] Care Team Providers Care Hand Developer Name Role Phone Glendy Diallo MD Primary Care Provid er Unavailable Encounter Details Date Type Department Care Team (Late st Contact Info) Description 10/12/2022 Lab Requisition [facility] Pathology & Laboratory Medicine - [address] [address] Outr Resulting Lab, Provider Social History Tobacco [...] Outr Resulting Lab MICROBIOLOGY - GENERAL ORDERABLES [facility] [address] [place] [address] * COVID-19 TESTING (10/11/2022 18:45 EST) COVID-19 rt-PCR Result Negative Negative 10/13/2022 12:11 EST [facility] Comment: This test has not [...] performed using the waldo SARS-CoV-2 assay ([employer] on the Waldo 6800 System Performing Lab Waldo [address] [facility] Lab 10/13/2022 12:11 EST [facility] Swab 10/11/2022 18:4 5 EST 10/12/2022 21:34 EST Provider Outr Resulting Lab MICROBIOLOGY - GENERAL ORDERABLES [facility] [address] [place] [address] documented in this encounter Visit Diagnoses Not on filedocumented in this encounter Care Teams Hand Developer Relationship Specialty Start Date End Date Glendy Diallo MD PCP - General 07/21/15 documented as of this encounter
--- OUTSIDE RECORDS SUMMARY | 2024-05-05 01:52 | XMS_ITS | Encounter Summary ---
Author Organization [facility] Address [address] [place] [address] Care Team Providers Care In Flight Refueling Manager Name Role Phone Glendy Diallo MD Primary Care Provid er Unavailable Encounter Details Date Type Department Care Team (Late st Contact Info) Description 12/04/2023 Lab Requisition [facility] Pathology & Laboratory Medicine - [facility] [address] [place] [address] Outr Resulting Lab, Provider Social History Tobacco [...] U Negative <1 ng/mL 12/05/2023 12:06 EDT [facility] Urine URINE / Unknown 12/04/2023 1 1:00 EDT 12/04/2023 21:28 EDT [facility]ative [facility] - 12/05/2023 12:06 EDT Testing performed by: [facility] [address] [place] [address] [address], [place] [address] Table Attendant: Ramu Antoine MD; CLIA # [id number] Provider Outr Resulting Lab URINALYSIS O RDERABLES [facility] [address] [facility], [address] [phone] documented in this encounter Visit Diagnoses Not on filedocumented in this encounter Care Teams In Flight Refueling Manager Relationship Specialty Start Date End Date Glendy Diallo MD PCP - General 07/21/15 documented as of this encounter
--- OUTSIDE RECORDS SUMMARY | 2024-05-05 01:52 | XMS_ITS | Referral Summary ---
Author Organization [facility] Address [address] [place] [address] Care Team Providers Care Retail Grocer Name Role Phone Glendy Diallo MD Primary [...] C Antibody Negative Negative 12/04/2023 23:14 EDT [facility] Blood VENOUS BLOOD / Unknown 12/04/2023 11:53 EDT 12/04/2023 21:28 EDT Provider Outr Resulting Lab CHEMISTRY & BLOOD GAS ORDERABLES [facility] [address] [place], [place] [address] from Last 3 Months or Most Recently Relevant to Health Maintenance Care Teams Retail Grocer Relationship Specialty Start Date End Date Glendy Diallo MD PCP - General 07/21/15
--- OUTSIDE RECORDS SUMMARY | 2024-05-05 01:52 | XMS_ITS | Encounter Summary ---
Author Organization [facility] [place] [address] Care Team Providers Care Short Range Air Defense Artillery Name Role Phone Unavailable Primary Care Provider Unavailabl e Encounter Details Date Type Department Care Team (Late st Contact Info) Description 01/01/2024 Telephone Obstetrics [place] [phone] Mayra Andrews Social History Tobacco Use Types [...]
--- OUTSIDE RECORDS SUMMARY | 2024-05-05 01:52 | XMS_ITS | Encounter Summary ---
Author Organization [facility] Address [address] [place] [address] Care Team Providers Care Dressmaking Teacher Name Role Phone Glendy Diallo MD Primary Care Provid er Unavailable Encounter Details Date Type Department Care Team (Late st Contact Info) Description 12/04/2023 Lab Requisition [facility] Pathology & Laboratory Medicine - [address] [address] Outr Resulting Lab, Provider Social History Tobacco [...] Ab Positive See Note 12/05/2023 10:33 EDT [facility] Comment:Presence of detectab le Varicella Zoster virus IgG antibodies. Blood VENOUS BLOOD / Unknown 12/04/2023 11:53 EDT 12/04/2023 21:28 EDT Provider Outr Resulting Lab IMMUNOLOGY A ND SEROLOGY ORDERABLES [facility] [address] [place] [address] * RUBELLA IGG ANTIBODY (12/04/2023 11:53 EDT) Rubella IgG Ab Positive See Note 12/05/2023 11:09 EDT [facility] Comment:Positive for IgG ant ibodies to Rubella virus. Blood VENOUS BLOOD / Unknown 12/04/2023 11:53 EDT 12/04/2023 21:28 EDT Provider Outr Resulting Lab CHEMISTRY & BLOOD GAS ORDERABLES [facility] [address] [place] [address] documented in this encounter Visit Diagnoses Not on filedocumented in this encounter Care Teams Dressmaking Teacher Relationship Specialty Start Date End Date Glendy Diallo MD PCP - General 07/21/15 documented as of this encounter
--- OUTSIDE RECORDS SUMMARY | 2024-05-05 01:52 | XMS_ITS | Encounter Summary ---
Author Organization [facility] Address [address] [place] [address] Care Team Providers Care [employer] Lab Technician Name Role Phone Glendy Diallo MD Primary Care Provid er Unavailable Encounter Details Date Type Department Care Team (Late st Contact Info) Description 12/27/2019 Lab Requisition [facility] Pathology & Laboratory Medicine - [address] [address] Sergio Olvera CNM [address] [address] Encounter for other general examination Social History [...] types, PCR Negative Negative 12/30/2019 14:02 EDT [facility] Comment:No E6 or E7 mRNA is detected from HPV types 16,18,31,33,35,39,45,51,52,56,58,59,66, and 68 by supervisor dog license officer mediated amplification. Papanicolaou smear specimen (specimen) CERVIX UTERI STRUCTURE / Unknown 12/23/2019 13:45 EDT 12/29/2019 10:44 EDT Sergio Olvera [facility] MICROBIOLOGY - GENER AL ORDERABLES [facility] [address] [place] [address] * PAP TEST (12/23/2019 13:45 EDT) Specimens A. Cervix and/or Endocervix, ThinPrep Imaging System with Manual Evaluation 12/31/2019 13:31 [facility] Specimen Adequacy Satisfactory for Evaluation - transformation zone component present 12/31/2019 13:31 [facility] General Categorization Negative for intraepithelial lesion or malignancy 12/31/2019 13:31 [facility] Descriptive Diagnosis Fungal organisms present morphologically consistent with Emilie species. 12/31/2019 13:31 [facility] Attestation By the signature below, the attending physician certifies that they have personally conducted a gross and/or microscopic examination of the described specimens and rendered or confirmed the above diagnosis. 12/31/2019 13:31 [facility] at 1331 Clinical History NONE 12/31/19 20 13:31 [facility] HPV The result for the Human Papillomavirus (HPV) Detection-High Risk Types is Negative. No E6 or E7 mRNA is detected from HPV types 16,18,31,33,35,39 ,45,51,52,56,58,5 9,66, and 68 by supervisor dog license officer mediated amplification.Nina ting was performed on specimen [id number] and was resulted on 12/30/2019 1357 EDT by LUCI, LAB INSTRUMENT RESULTS IN 12/31/2019 13:31 [facility] Scanned Images 12/31/2019 13:31 [facility] Papanicolaou smear specimen (specimen) CERVIX UTERI STRUCTURE / Unknown 12/23/2019 13:45 EDT 12/27/2019 9:01 EDT Sergio Olvera [facility] PATHOLOGY ORDERABLES [facility] [address] [place] [address] documented in this encounter Visit Diagnoses Diagnosis Encounter for other general examination documented in this encounter Additional Health Concerns Infection Onset Date Last Indicated Resolved Time COVID-19 06/03/2022 06/03/2022 06/23/2022 22:1 5 EDT documented as of this encounter Care Teams [employer] Lab Technician Relationship Specialty Start Date End Date Glendy Diallo MD PCP - General 07/21/15 documented as of this encounter
--- OUTSIDE RECORDS SUMMARY | 2024-05-05 01:52 | XMS_ITS | Encounter Summary ---
Author Organization [facility] Address [address] [place] [address] Care Team Providers Care Foundation Engineer Name Role Phone Unavailable Primary Care Provider Unavailabl e Encounter Details Date Type Department Care Team (Late st Contact Info) Description 08/17/2004 Results Only [facility] - Maple conversion [address] [place] [address] Unknown, Provider, Social History Tobacco Use Types [...] GA S ORDERABLES [facility] [address] [place] [address] documented in this encounter Visit Diagnoses Not on filedocumented in this encounter
--- OUTSIDE RECORDS SUMMARY | 2024-05-05 01:52 | XMS_ITS | Encounter Summary ---
Author Organization [facility] Address [address] [place] [address] Care Team Providers Care Grommet Machine Operator Name Role Phone Glendy Diallo MD Primary Care Provid er Unavailable Encounter Details Date Type Department Care Team (Late st Contact Info) Description 12/30/2019 Lab Requisition [facility] Pathology & Laboratory Medicine - [address] [address] Unknown, Provider, Social History Tobacco Use Types [...] 12:40 EDT) Hold Hold 12/30/2019 22:01 EDT [facility] Blood VENOUS BLOOD / Unknown 12/30/2019 12:40 EDT 12/30/2019 20:45 EDT Provider Unknown LAB INFO SERVICE AND SUPPORT & PHONE RESULT Performing Organization Address City/[facility]/ZIP Co de Phone Number [facility] [address] [place] [address] * HEPATITIS B SURFACE ANTIGEN (12/30/2019 12:40 EDT) Hep B Surface Ag Negative Negative 12/31/2019 10:35 EDT [facility] Blood VENOUS BLOOD / Unknown 12/30/2019 12:40 EDT 12/30/2019 20:44 EDT Provider Unknown CHEMISTRY & BLOOD GA S ORDERABLES Performing Organization Address [facility] Co de Phone Number [facility] [address] [place] [address] * HEPATITIS C AB W REFLEX TO HCV RNA BY PCR (12/30/2019 12:40 EDT) Hep C Antibody Negative Negative 12/31/2019 10:04 EDT [facility] Blood VENOUS BLOOD / Unknown 12/30/2019 12:40 EDT 12/30/2019 20:45 EDT Provider Unknown CHEMISTRY & BLOOD GA S ORDERABLES Performing Organization Address [facility] Co de Phone Number [facility] [address] [place] [address] documented in this encounter Visit Diagnoses Not on filedocumented in this encounter Additional Health Concerns Infection Onset Date Last Indicated Resolved Time COVID-19 06/03/2022 06/03/2022 06/23/2022 22:1 5 EDT documented as of this encounter Care Teams Grommet Machine Operator Relationship Specialty Start Date End Date Glendy Diallo MD PCP - General 07/21/15 documented as of this encounter
--- OUTSIDE RECORDS SUMMARY | 2024-05-05 01:52 | XMS_ITS | Encounter Summary ---
Author Organization [facility] Address [address] [place] [address] Care Team Providers Care Campus Security Officer Name Role Phone Glendy Diallo MD Primary Care Provid er Unavailable Encounter Details Date Type Department Care Team (Late st Contact Info) Description 12/30/2019 Lab Requisition [facility] Pathology & Laboratory Medicine - [address] [address] Unknown, Provider, Social History Tobacco Use Types [...] Ab Positive See Note 12/31/2019 10:20 EDT [facility] Comment:Presence of detectab le Varicella Zoster virus IgG antibodies. Blood VENOUS BLOOD / Unknown 12/30/2019 12:40 EDT 12/30/2019 21:01 EDT Provider Unknown IMMUNOLOGY AND SEROL UZMA ORDERABLES [facility] [address] [place] [address] * RUBELLA IGG ANTIBODY (12/30/2019 12:40 EDT) Rubella IgG Ab Positive See Note 12/31/2019 10:20 EDT [facility] Comment:Positive for IgG ant ibodies to Rubella virus. Blood VENOUS BLOOD / Unknown 12/30/2019 12:40 EDT 12/30/2019 21:01 EDT Provider Unknown CHEMISTRY & BLOOD GA S ORDERABLES [facility] [address] [place] [address] documented in this encounter Visit Diagnoses Not on filedocumented in this encounter Additional Health Concerns Infection Onset Date Last Indicated Resolved Time COVID-19 06/03/2022 06/03/2022 06/23/2022 22:1 5 EDT documented as of this encounter Care Teams Campus Security Officer Relationship Specialty Start Date End Date Glendy Diallo MD PCP - General 07/21/15 documented as of this encounter
--- OUTSIDE RECORDS SUMMARY | 2024-05-05 01:52 | XMS_ITS | Clinical Summary ---
Author Organization [facility] [place] [address] Care Team Providers Care Associate Broker Name Role Phone Unavailable Primary Care Provider [...]
--- OUTSIDE RECORDS SUMMARY | 2024-05-05 01:52 | XMS_ITS | Encounter Summary ---
Author Organization [facility] Address [address] [place] [address] Care Team Providers Care Honing Machine Operator Tool Name Role Phone Unavailable Primary Care Provider Unavailabl e Encounter Details Date Type Department Care Team (Late st Contact Info) Description 09/22/2003 Results Only [facility] - Maple conversion [address] [place] [address] Unknown, Provider, Social History Tobacco Use Types [...] MD URINALYSIS ORDERABLE S Performing Organization Address City/State/[facility] Co de Phone Number [facility] [address] [place] [address] documented in this encounter Visit Diagnoses Not on filedocumented in this encounter
--- OUTSIDE RECORDS SUMMARY | 2024-05-05 01:52 | XMS_ITS | Encounter Summary ---
Author Organization [facility] Address [address] [place] [address] Care Team Providers Care Air Vice Marshal Name Role Phone Unavailable Primary Care Provider Unavailabl e Encounter Details Date Type Department Care Team (Late st Contact Info) Description 10/23/2003 Results Only [facility] - Maple conversion [address] [place] [address] Unknown, Provider, Social History Tobacco Use Types [...] MD URINALYSIS ORDERABLE S Performing Organization Address City/State/[facility] Co de Phone Number [facility] [address] [place] [address] documented in this encounter Visit Diagnoses Not on filedocumented in this encounter
--- OUTSIDE RECORDS SUMMARY | 2024-05-05 01:52 | XMS_ITS | Encounter Summary ---
Author Organization [facility] Address [address] [place] [address] Care Team Providers Care Outside Medical Sales Representative Name Role Phone Glendy Diallo MD Primary Care Provid er Unavailable Encounter Details Date Type Department Care Team (Late st Contact Info) Description 12/04/2023 Lab Requisition [facility] Pathology & Laboratory Medicine - [address] [address] Outr Resulting Lab, Provider Social History Tobacco [...] gonorrhoeae Result Negative Negative 12/05/2023 15:34 EDT [facility] Chlamydia trachomatis Result Negative Negative 12/05/2023 15:34 EDT [facility] Pap Test CERVIX UTERI STRUCTURE / Unknown 12/04/2023 11:00 EDT 12/05/2023 9:40 EDT Provider Outr Resulting Lab MICROBIOLOGY - GENERAL ORDERABLES [facility] [address] [place] [address] documented in this encounter Visit Diagnoses Not on filedocumented in this encounter Care Teams Outside Medical Sales Representative Relationship Specialty Start Date End Date Glendy Diallo MD PCP - General 07/21/15 documented as of this encounter
--- OUTSIDE RECORDS SUMMARY | 2024-05-05 01:52 | XMS_ITS | Encounter Summary ---
Author Organization [facility] Address [facility] [place] [address] Care Team Providers Care Crossband Layer Name Role Phone Unavailable Primary Care Provider Unavailabl e Reason for Referral * Consultation (Urgent) - Closed Specialty Diagnoses / Procedures Referred By Padmini t Referred To Contact Obstetrics and Gynecology Diagnoses Antepartum multigravida of advanced maternal age Positive result on maternal serum screen for trisomy 18 Abnormal chromosomal and genetic finding on screening mother Cassy Calvillo CNM [address] [place] [address] [address] [place] [address] [facility] Dimensional Integration Engineer [address] [address] Referral ID Status Reason Start Date Expiration Date V isits Requested Visits Authorized [id number] Closed Consult, Test & Treat PCP Updated and/or Approved 12/18/2023 12/17/2024 6 6 Encounter Details Date Type Department Care Team (Late st Contact Info) Description 12/18/2023 Transcribe Orders eDH Incoming Referrals [phone] Cassy Calvillo CNM [address] [place] [address] [address] [place], [place] [id number] Antepartum multigravida of advanced maternal age; Positive [...]
--- OUTSIDE RECORDS SUMMARY | 2024-05-05 01:52 | XMS_ITS | Clinical Summary ---
Author Organization [facility] Address [address] [place] [address] Care Team Providers Care Glove Examiner Name Role Phone Glendy Diallo MD Primary [...] C Antibody Negative Negative 12/04/2023 23:14 EDT [facility] Blood VENOUS BLOOD / Unknown 12/04/2023 11:53 EDT 12/04/2023 21:28 EDT Provider Outr Resulting Lab CHEMISTRY & BLOOD GAS ORDERABLES [facility] [address] [place] [address] from Last 3 Months or Most Recently Relevant to Health Maintenance Care Teams Glove Examiner Relationship Specialty Start Date End Date Glendy Diallo MD PCP - General 07/21/15
--- OUTSIDE RECORDS SUMMARY | 2024-05-05 01:52 | XMS_ITS | Encounter Summary ---
Author Organization [facility] Address [address] [place] [address] Care Team Providers Care Apprentice Cook Name Role Phone Glendy Diallo MD Primary Care Provid er Unavailable Encounter Details Date Type Department Care Team (Late st Contact Info) Description 12/04/2023 Lab Requisition [facility] Pathology & Laboratory Medicine - [address] [address] Outr Resulting Lab, Provider Social History Tobacco [...] Surface Ag Negative Negative 12/04/2023 22:44 EDT [facility] Blood VENOUS BLOOD / Unknown 12/04/2023 11:53 EDT 12/04/2023 21:28 EDT Provider Outr Resulting Lab CHEMISTRY & BLOOD GAS ORDERABLES [facility] [address] [place] [address] * HEPATITIS C AB W REFLEX TO HCV RNA BY PCR (12/04/2023 11:53 EDT) Hep C Antibody Negative Negative 12/04/2023 23:14 EDT [facility] Blood VENOUS BLOOD / Unknown 12/04/2023 11:53 EDT 12/04/2023 21:28 EDT Provider Outr Resulting Lab CHEMISTRY & BLOOD GAS ORDERABLES [facility] [address] [place] [address] documented in this encounter Visit Diagnoses Not on filedocumented in this encounter Care Teams Apprentice Cook Relationship Specialty Start Date End Date Glendy Diallo MD PCP - General 07/21/15 documented as of this encounter
--- OUTSIDE RECORDS SUMMARY | 2024-05-05 01:52 | XMS_ITS | Encounter Summary ---
Author Organization [facility] Address [address] [place] [address] Care Team Providers Care Overweaver Name Role Phone Glendy Diallo MD Primary Care Provid er Unavailable Encounter Details Date Type Department Care Team (Late st Contact Info) Description 06/03/2022 Lab Requisition [facility] Pathology & Laboratory Medicine - [address] [address] Outr Resulting Lab, Provider Social History Tobacco [...] Priority Date/Time Associated Diagnosis Comments ZZCOVID-19 TEST [facility] PCR Today 06/03/2022 11:29 EDT COVID-19 TESTING Routine 06/03/2022 11:2 9 EDT documented in this encounter Results * COVID-19 TEST [facility] PCR (06/03/2022 11:29 EDT) Swab 06/03/2022 11:2 9 EDT 06/04/2022 17:09 EDT Provider Outr Resulting Lab MICROBIOLOGY - GENERAL ORDERABLES [facility] [address] [place] [address] * (ABNORMAL) COVID-19 TESTING (06/03/2022 11:29 EDT) COVID-19 rt-PCR Result Positive( AA) Negative 06/05/2022 12:02 EDT [facility] Comment: This test has not [...] was performed using the waldo SARS-CoV-2 assay ([employer] on the Waldo 6800 System Performing Lab [place] [address] [facility] 06/05/2022 12:02 EDT [facility] Swab 06/03/2022 11:2 9 EDT 06/04/2022 17:09 EDT Provider Outr Resulting Lab MICROBIOLOGY - GENERAL ORDERABLES [facility] [address] [place] [address] documented in this encounter Visit Diagnoses Not on filedocumented in this encounter Additional Health Concerns Infection Onset Date Last Indicated Resolved Time COVID-19 06/03/2022 06/03/2022 06/23/2022 22:1 5 EDT documented as of this encounter Care Teams Overweaver Relationship Specialty Start Date End Date Glendy Diallo MD PCP - General 07/21/15 documented as of this encounter
--- OUTSIDE RECORDS SUMMARY | 2024-05-05 01:52 | XMS_ITS | Encounter Summary ---
Author Organization [facility] Address [address] [place] [address] Care Team Providers Care Clay Stain Mixer Name Role Phone Glendy Diallo MD Primary Care Provid er Unavailable Encounter Details Date Type Department Care Team (Late st Contact Info) Description 06/02/[address] [facility] Pathology & Laboratory Medicine - [address] [address] Outr Resulting Lab, Provider Social History Tobacco [...] Outr Resulting Lab MICROBIOLOGY - GENERAL ORDERABLES [facility] [address] [place] [address] * COVID-19 TESTING (06/02/2020 20:00 EDT) COVID-19 rt-PCR Result Negative Negative 06/03/2020 12:47 EDT [facility] Comment: This test has [...] history, and epidemiological information. Performed on the Semantifyher Fusion instrument Performing Lab [place] [facility] 06/03/2020 12:47 EDT [facility] Swab 06/02/2020 20:0 0 EDT 06/03/2020 9:56 EDT Provider Outr Resulting Lab MICROBIOLOGY - GENERAL ORDERABLES [facility] [address] [place] [address] documented in this encounter Visit Diagnoses Not on filedocumented in this encounter Additional Health Concerns Infection Onset Date Last Indicated Resolved Time COVID-19 06/03/2022 06/03/2022 06/23/2022 22:1 5 EDT documented as of this encounter Care Teams Clay Stain Mixer Relationship Specialty Start Date End Date Glendy Diallo MD PCP - General 07/21/15 documented as of this encounter
--- OUTSIDE RECORDS SUMMARY | 2024-05-05 01:52 | XMS_ITS | Encounter Summary ---
Author Organization [facility] Address [address] [place] [address] Care Team Providers Care Feed In Worker Name Role Phone Glendy Diallo MD Primary Care Provid er Unavailable Encounter Details Date Type Department Care Team (Late st Contact Info) Description 12/04/2023 Lab Requisition [facility] Pathology & Laboratory Medicine - [address] [address] Outr Resulting Lab, Provider Social History Tobacco [...] 4th Generation Negative Negative 12/04/2023 23:[address] [facility] Comment:If acute HIV-1 infec tion is suspected in a high risk patient, submit plasma specimen for HIV-1 RNA quantitation test. Blood VENOUS BLOOD / Unknown 12/04/2023 11:53 EDT 12/04/2023 21:28 EDT Narrative [facility] - 12/04/2023 23:38 EDT Fourth Generation assay performed on the Siemens Centaur XPT. Provider Outr Resulting Lab IMMUNOLOGY A ND SEROLOGY ORDERABLES [facility] [address] [place] [address] documented in this encounter Visit Diagnoses Not on filedocumented in this encounter Care Teams Feed In Worker Relationship Specialty Start Date End Date Glendy Diallo MD PCP - General 07/21/15 documented as of this encounter
--- OUTSIDE RECORDS SUMMARY | 2024-05-05 01:52 | XMS_ITS | Encounter Summary ---
Author Organization [facility] Address [address] [place] [address] Care Team Providers Care Head Mva Reactor Operator Name Role Phone Glendy Diallo MD Primary Care Provid er Unavailable Encounter Details Date Type Department Care Team (Late st Contact Info) Description 12/24/2019 Lab Requisition [facility] Pathology & Laboratory Medicine - [address] [address] Unknown, Provider, Social History Tobacco Use Types [...] gonorrhoeae Result Negative Negative 12/27/2019 15:36 EDT [facility] Chlamydia trachomatis Result Negative Negative 12/27/2019 15:36 EDT [facility] Swab ENTIRE WALL OF CERVIX / Unknown Swab / Unknown 12/23/2019 13:45 EDT 12/24/2019 15:30 EDT Provider Unknown MICROBIOLOGY - GENER AL ORDERABLES [facility] [address] [place] [address] documented in this encounter Visit Diagnoses Not on filedocumented in this encounter Additional Health Concerns Infection Onset Date Last Indicated Resolved Time COVID-19 06/03/2022 06/03/2022 06/23/2022 22:1 5 EDT documented as of this encounter Care Teams Head Mva Reactor Operator Relationship Specialty Start Date End Date Glendy Diallo MD PCP - General 07/21/15 documented as of this encounter
--- OUTSIDE RECORDS SUMMARY | 2024-05-05 01:52 | XMS_ITS | Encounter Summary ---
Author Organization [facility] Address [address] [place] [address] Care Team Providers Care Correction Officer Head Name Role Phone Unavailable Primary Care Provider Unavailabl e Encounter Details Date Type Department Care Team (Late st Contact Info) Description 10/12/2003 Results Only [facility] [address] [place] [address] Unknown, Provider, Social History Tobacco Use Types [...] URINALYSIS ORDERABLE S [facility] [address] [place] [address] * DRUG SCREEN 6 (10/12/2003 19:09 EST) [...] URINALYSIS ORDERABLE S [facility] [address] [place] [address] documented in this encounter Visit Diagnoses Not on filedocumented in this encounter
--- NOTE | 2024-05-05 13:56 | DI.US_ITS ---
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 TECHNIQUE: Transabdominal obstetrical ultrasound performed. COMPARISON: US US OB 2-3 TRIMESTER from 01/29/2024 US POCUS EXAM from 03/10/2024 FINDINGS:: Number of fetuses: One. position: Vertex. Placental location: Posterior. No evidence of previa. BIOMETRIC DATA: BPD: 88mm = 35+3 weeks HC: 319mm = 36 weeks AC: 309mm = 34+2 weeks FL: 70 mm = 35+3 weeks EFW: 2539 Gms = 36% Composite Age: 35+2 weeks CARLA: 07 June 2024 Heart Rate: 148BPM Amniotic fluid index: 15 cm. Amount of fluid is visually within normal limits. IMPRESSION: size and weight are within the expected range. DATA REPOSITORY:
== END 2024-05-05 02:09 ==
LOC: DI 01:49
PROVIDERS: Visit Provider Advanced Practice Midwife
DX: Z34.93 Encounter for supervision of normal pregnancy, unspecified, third trimester (principal); Z3A.35 35 weeks gestation of pregnancy
CPT/HCPCS: 76816

== ENCOUNTER 2024-05-19 16:02 | Outpatient (REF) | payer MEDICAID, SELFPAY ==
[2024-05-19 16:57] LABS: COMMENT (LAB VIEW ONLY) 100.72 mg/dL; PROTEIN 11.6 mg/dL; Prot/Crea Ur Ratio 0.11
[2024-05-19 16:59] LABS: *AMPHETAMINES SCREEN URINE Negative (Negative); *BARBITURATES SCREEN URINE Negative (Negative); *BENZODIAZEPINES SCREEN URINE Negative (Negative); Cannabinoids THC Negative (Negative); Cocaine Screen,Urine Positive (Negative); METHADONE URINE SCREEN Negative (Negative); OPIATES URINE SCREEN Negative (Negative)
[2024-05-19 17:03] LABS: Tricyclic Antidepressants Negative (Negative)
[2024-05-21 13:54] LABS: Chlamydia Result Negative (Negative); GC Result Negative (Negative)
[2024-05-21 16:33] LABS: Fentanyl Scr w/Rfx Confirm Positive ng/mL (<1)
[2024-05-24 11:26] LABS: Lab Add On Test DONE
[2024-05-25 17:03] LABS: Xylazine, Confirmation Urine Negative ng/mL (<50)
[2024-05-26 13:23] LABS: Buprenorphine 62.5 ng/mL (Cutoff: 5.0); Norbuprenorphine 176.6 ng/mL (Cutoff: 2.5)
[2024-05-26 14:48] LABS: Fentanyl Confirmation Negative ng/mL (<2); Norfentanyl Confirmation 11 ng/mL (<10)
== END 2024-05-19 16:03 | disposition home or self-care (01) ==
LOC: LBN 16:02
PROVIDERS: Advanced Practice Midwife; Visit Provider Advanced Practice Midwife
DX: O99.323 Drug use complicating pregnancy, third trimester (principal); F11.20 Opioid dependence, uncomplicated; Z34.93 Encounter for supervision of normal pregnancy, unspecified, third trimester; O09.523 Supervision of elderly multigravida, third trimester; Z87.59 Personal history of other complications of pregnancy, childbirth and the puerperium; F14.10 Cocaine abuse, uncomplicated; R82.5 Elevated urine levels of drugs, medicaments and biological substances
CPT/HCPCS: 80307; 80348; 80354; 80375; 87491; 87591; 82565; 84156; 87081; 87480; 87510; 87660

== ENCOUNTER 2024-06-04 00:54 | Outpatient (CLI) | payer MEDICAID, SELFPAY ==
--- OUTSIDE RECORDS SUMMARY | 2024-06-04 01:00 | XMS_ITS | Encounter Summary ---
Author Organization [facility] Address [address] [place] [address] Care Team Providers Care Speech Lang Path Name Role Phone Glendy Diallo MD Primary Care Provid er Unavailable Encounter Details Date Type Department Care Team (Late st Contact Info) Description 05/24/2024 Lab Requisition [facility] Pathology & Laboratory Medicine - [address] [address] Outr Resulting Lab, Provider Social History Tobacco [...] Procedure Name Priority Date/Time Associated Diagnosis Comments XYLAZINE CONFIRMATION, U Routine 05/19/2024 15:45 EDT documented in this encounter Results * XYLAZINE CONFIRMATION, U (05/19/2024 15:45 EDT) Xylazine Confirmation Negative <50 ng/mL 05/25/2024 16:57 EDT [facility] Urine URINE / Unknown 05/19/2024 1 5:45 EDT 05/24/2024 16:27 EDT Narrative [facility] - 05/25/2024 16:57 EDT Testing performed by: [facility] [address] [place] [address], [address], [place] [address] Room Service Runner: Ramu Antoine MD; CLIA # [id number] Provider Outr Resulting Lab GEN LAB UNIT COLLECT ORDERABLES [facility] [address] [facility], [address] [phone] documented in this encounter Visit Diagnoses Not on filedocumented in this encounter Care Teams Speech Lang Path Relationship Specialty Start Date End Date Glendy Diallo MD PCP - General 07/21/15 documented as of this encounter
--- OUTSIDE RECORDS SUMMARY | 2024-06-04 01:00 | XMS_ITS | Encounter Summary ---
Author Organization [facility] Address [address] [place] [address] Care Team Providers Care Home Health Aide Name Role Phone Unavailable Primary Care Provider Unavailabl e Encounter Details Date Type Department Care Team (Late st Contact Info) Description 08/17/2004 Results Only [facility] [address] [place] [address] Unknown, Provider, Social History Tobacco Use Types [...] GA S ORDERABLES [facility] [address] [place] [address] documented in this encounter Visit Diagnoses Not on filedocumented in this encounter
--- OUTSIDE RECORDS SUMMARY | 2024-06-04 01:00 | XMS_ITS | Encounter Summary ---
Author Organization [facility] Address [address] [place] [address] Care Team Providers Care Research Biostatistician Name Role Phone Glendy Diallo MD Primary Care Provid er Unavailable Encounter Details Date Type Department Care Team (Late st Contact Info) Description 12/04/2023 Lab Requisition [facility] Pathology & Laboratory Medicine - [address] [address] Outr Resulting Lab, Provider Social History Tobacco [...] Ab Positive See Note 12/05/2023 10:33 EDT [facility] Comment:Presence of detectab le Varicella Zoster virus IgG antibodies. Blood VENOUS BLOOD / Unknown 12/04/2023 11:53 EDT 12/04/2023 21:28 EDT Provider Outr Resulting Lab IMMUNOLOGY A ND SEROLOGY ORDERABLES [facility] [address] [place] [address] * RUBELLA IGG ANTIBODY (12/04/2023 11:53 EDT) Rubella IgG Ab Positive See Note 12/05/2023 11:09 EDT [facility] Comment:Positive for IgG ant ibodies to Rubella virus. Blood VENOUS BLOOD / Unknown 12/04/2023 11:53 EDT 12/04/2023 21:28 EDT Provider Outr Resulting Lab CHEMISTRY & BLOOD GAS ORDERABLES [facility] [address] [place] [address] documented in this encounter Visit Diagnoses Not on filedocumented in this encounter Care Teams Research Biostatistician Relationship Specialty Start Date End Date Glendy Diallo MD PCP - General 07/21/15 documented as of this encounter
--- OUTSIDE RECORDS SUMMARY | 2024-06-04 01:00 | XMS_ITS | Clinical Summary ---
Author Organization [facility] Address [address] [place] [address] Care Team Providers Care Truck Guard Name Role Phone Glendy Diallo MD Primary Care Provid er Unavailable Encounters Date Type Department Care Team Description 05/24/2024 Lab Requisition [facility] Pathology & Laboratory [address] [address] Outr Resulting Lab, Provider 05/20/2024 Lab Requisition [facility]ology & Laboratory [address] [address] Outr Resulting Lab, Provider 05/20/2024 Lab Requisition [facility]ology & Laboratory [address] [address] Outr Resulting Lab, Provider from Last 3 Months Social History Tobacco Use Types Packs/Day Years Used Date Smoking Tobacco: Never Assessed Sex and Gender Information Value Date Recorded Sex Assigned at Not on file Gender Identity Not on file Sexual Orientation Not on file Plan of Treatment Health Maintenance Due Date Last Done Comments Hepatitis B Vaccine (1 of 3 - 19+ 3-dose series) 2007 COVID-19 Vaccine ( season) 2024 Hepatitis C Screen Completed 12/04/2023, 12/30/2019 Procedures Procedure Name Priority Date/Time Associated Diagnosis Comments CHLAMYDIA/N. GONORRHOEAE AMPLIFIED NUCLEIC ACID Routine 05/19/2024 16:38 EDT FENTANYL AND METABOLITE CONFIRMATION PANEL Today 05/19/2024 16:28 EDT FENTANYL SCREEN WITH REFLEX TO CONFIRMATION, U Routine 05/19/2024 16:28 EDT XYLAZINE CONFIRMATION, U Routine 05/19/2024 15:45 EDT HEPATITIS C AB W REFLEX TO HCV RNA BY PCR Routine 12/04/2023 11:53 EDT from Last 3 Months or Most Recently Relevant to Health Maintenance Results * CHLAMYDIA/N. GONORRHOEAE AMPLIFIED NUCLEIC ACID (05/19/2024 16:38 EDT) Neisseria gonorrhoeae Result Negative Negative 05/21/2024 13:48 EDT [facility] Chlamydia trachomatis Result Negative Negative 05/21/2024 13:48 EDT [facility] Swab VAGINAL STRUCTURE / Unknown 05/19/2024 16:38 EDT 05/20/2024 18:27 EDT Provider Outr Resulting Lab MICROBIOLOGY - GENERAL ORDERABLES [facility] [address] [place] [address] * (ABNORMAL) FENTANYL SCREEN WITH REFLEX TO CONFIRMATION, U (05/19/2024 16:28 EDT) Fentanyl Screen with Reflex to Confirmation, U Positive( A) <1 ng/mL 05/21/2024 16:28 EDT [facility] Comment: Trazodone is known to cross react with the Fentanyl immunoassay and may cause a false positive Urine URINE / Unknown 05/19/2024 1 6:28 EDT 05/20/2024 17:34 EDT Narrative [facility] - 05/21/2024 16:28 EDT Testing performed by: [facility] [address] [place] [address], [address], [place] [address] Windows Architect: Ramu Antoine MD; CLIA # [id number] Provider Outr Resulting Lab URINALYSIS O RDERABLES [facility] [address] [place] [address], [facility] [address] [phone] * (ABNORMAL) FENTANYL AND METABOLITE CONFIRMATION PANEL (05/19/2024 16:28 EDT) Fentanyl Confirmation Negative <2 ng/mL 05/26/2024 14:43 EDT [facility] Norfentanyl Confirmation 11(A) <10 ng/mL 05/26/2024 14:43 EDT [facility] Urine URINE / Unknown 05/19/2024 1 6:28 EDT 05/20/2024 17:34 EDT Narrative [facility] - 05/26/2024 14:43 EDT Evidence of presence of Fentanyl below cutoff concentration. ??ALB 05/25/24 Testing performed by: [facility] [address] [place] [address], [facility] [address] [address] Windows Architect: Ramu Antoine MD; CLIA # [id number] Provider Outr Resulting Lab GEN LAB UNIT COLLECT ORDERABLES [facility] [address] [place] [address], [address] [phone] * XYLAZINE CONFIRMATION, U (05/19/2024 15:45 EDT) Xylazine Confirmation Negative <50 ng/mL 05/25/2024 16:57 EDT [facility] Urine URINE / Unknown 05/19/2024 1 5:45 EDT 05/24/2024 16:27 EDT Narrative [facility] - 05/25/2024 16:57 EDT Testing performed by: [facility] [address] [place] [address], [facility] [address] [address] Windows Architect: Ramu Antoine MD; CLIA # [id number] Provider Outr Resulting Lab GEN LAB UNIT COLLECT ORDERABLES [facility] [address] [place] [address], [facility] [address] [phone] * HEPATITIS C AB W REFLEX TO HCV RNA BY PCR (12/04/2023 11:53 EDT) Hep C Antibody Negative Negative 12/04/2023 23:14 EDT [facility] Blood VENOUS BLOOD / Unknown 12/04/2023 11:53 EDT 12/04/2023 21:28 EDT Provider Outr Resulting Lab CHEMISTRY & BLOOD GAS ORDERABLES [facility] [address] [place] [address] from Last 3 Months or Most Recently Relevant to Health Maintenance Care Teams Truck Guard Relationship Specialty Start Date End Date Glendy Diallo MD PCP - General 07/21/15
--- OUTSIDE RECORDS SUMMARY | 2024-06-04 01:00 | XMS_ITS | Encounter Summary ---
Author Organization [facility] Address [address] [place] [address] Care Team Providers Care Telephone Engineer Name Role Phone Glendy Diallo MD Primary Care Provid er Unavailable Encounter Details Date Type Department Care Team (Late st Contact Info) Description 12/08/2023 Lab Requisition [facility] Pathology & Laboratory Medicine - [address] [address] [id number] Personal history of other complications of , [...] types, PCR Negative Negative 12/11/2023 17:50 EDT [facility] Comment:No E6 or E7 mRNA is detected from HPV types 16,18,31,33,35,39,45,51,52,56,58,59,66, and 68 by booking officer mediated amplification. Pap Test CERVIX UTERI STRUCTURE / Unknown 12/04/2023 11:00 EDT 12/10/2023 10:27 EDT Sylvia May [facility] MICROBIOLOGY - GENER AL ORDERABLES [facility] [address] [place] [id number] * PAP TEST (12/04/2023 11:00 EDT) Specimens A. Cervix and/or Endocervix , ThinPrep Imaging System with Manual Evaluation 12/11/2023 17:50 T [facility] Specimen Adequacy Satisfactory for Evaluation - transformation zone component present 12/11/2023 17:50 [facility] General Categorization Negative for intraepithelial lesion or malignancy 12/11/2023 17:50 T [facility] Attestation . 12/11/2023 17:50 [facility] at 1750 Clinical History SEE BELOW 12/11/19 24 17:50 T [facility] HPV The result for the Human Papillomavirus (HPV) Detection-High Risk Types is Negative. No E6 or E7 mRNA is detected from HPV types 16,18,31,33,35,39 ,45,51,52,56,58,5 9,66, and 68 by booking officer mediated amplification.Nina ting was performed on specimen [id number] and was resulted on 12/11/2023 1750 EDT by LUCI, LAB INSTRUMENT RESULTS IN 12/11/2023 17:50 EDT [facility] Performing Lab [facility] 12/11/2023 17:50 EDT [facility] Scanned Images 12/11/2023 17:50 EDT [facility] Pap Test CERVIX UTERI STRUCTURE / Unknown 12/04/2023 11:00 EDT 12/08/2023 16:08 EDT Sylvia May [facility] PATHOLOGY ORDERABLES [facility] [address] [place], [place] [id number] documented in this encounter Visit Diagnoses Diagnosis Personal history of other complications of , childbirth and the puerperium Encounter for supervision of normal , unspecified, unspecified trimester Encounter for supervision of normal , unspecified, first trimester documented in this encounter Care Teams Telephone Engineer Relationship Specialty Start Date End Date Glendy Diallo MD PCP - General 07/21/15 documented as of this encounter
--- OUTSIDE RECORDS SUMMARY | 2024-06-04 01:00 | XMS_ITS | Encounter Summary ---
Author Organization [facility] Address [address] [place] [address] Care Team Providers Care Business Insight And Analytics Manager Name Role Phone Glendy Diallo MD Primary Care Provid er Unavailable Encounter Details Date Type Department Care Team (Late st Contact Info) Description 12/30/2019 Lab Requisition [facility] Pathology & Laboratory Medicine - [address] [address] Unknown, Provider, Social History Tobacco Use Types [...] Ab Positive See Note 12/31/2019 10:20 EDT [facility] Comment:Presence of detectab le Varicella Zoster virus IgG antibodies. Blood VENOUS BLOOD / Unknown 12/30/2019 12:40 EDT 12/30/2019 21:01 EDT Provider Unknown IMMUNOLOGY AND SEROL UZMA ORDERABLES [facility] [address] [place] [address] * RUBELLA IGG ANTIBODY (12/30/2019 12:40 EDT) Rubella IgG Ab Positive See Note 12/31/2019 10:20 EDT [facility] Comment:Positive for IgG ant ibodies to Rubella virus. Blood VENOUS BLOOD / Unknown 12/30/2019 12:40 EDT 12/30/2019 21:01 EDT Provider Unknown CHEMISTRY & BLOOD GA S ORDERABLES [facility] [address] [place] [address] documented in this encounter Visit Diagnoses Not on filedocumented in this encounter Additional Health Concerns Infection Onset Date Last Indicated Resolved Time COVID-19 06/03/2022 06/03/2022 06/23/2022 22:1 5 EDT documented as of this encounter Care Teams Business Insight And Analytics Manager Relationship Specialty Start Date End Date Glendy Diallo MD PCP - General 07/21/15 documented as of this encounter
--- OUTSIDE RECORDS SUMMARY | 2024-06-04 01:00 | XMS_ITS | Encounter Summary ---
Author Organization [facility] [place] [address] Care Team Providers Care Manager Mail Name Role Phone Unavailable Primary Care Provider Unavailabl e Encounter Details Date Type Department Care Team (Late st Contact Info) Description 01/01/2024 Telephone Obstetrics [place] [phone] Mayra Andrews Social History Tobacco Use Types [...]
--- OUTSIDE RECORDS SUMMARY | 2024-06-04 01:00 | XMS_ITS | Encounter Summary ---
Author Organization [facility] Address [address] [place] [address] Care Team Providers Care Explosive Ordnance Disposal Technician Name Role Phone Glendy Diallo MD Primary Care Provid er Unavailable Encounter Details Date Type Department Care Team (Late st Contact Info) Description 12/04/2023 Lab Requisition [facility] Pathology & Laboratory Medicine - [facility] [address] [place] [address] Outr Resulting Lab, Provider Social History Tobacco [...] U Negative <1 ng/mL 12/05/2023 12:06 EDT [facility] Urine URINE / Unknown 12/04/2023 1 1:00 EDT 12/04/2023 21:28 EDT [facility]ative [facility] - 12/05/2023 12:06 EDT Testing performed by: [facility] [address] [place] [address] [address], [place] [address] Machine Adjuster: Ramu Antoine MD; CLIA # [id number] Provider Outr Resulting Lab URINALYSIS O RDERABLES [facility] [address] [facility], [address] [phone] documented in this encounter Visit Diagnoses Not on filedocumented in this encounter Care Teams Explosive Ordnance Disposal Technician Relationship Specialty Start Date End Date Glendy Diallo MD PCP - General 07/21/15 documented as of this encounter
--- OUTSIDE RECORDS SUMMARY | 2024-06-04 01:00 | XMS_ITS | Encounter Summary ---
Author Organization [facility] Address [facility] [place] [address] Care Team Providers Care Distributor Advertising Material Name Role Phone Unavailable Primary Care Provider Unavailabl e Reason for Referral * Consultation (Urgent) - Closed Specialty Diagnoses / Procedures Referred By Padmini t Referred To Contact Obstetrics and Gynecology Diagnoses Antepartum multigravida of advanced maternal age Positive result on maternal serum screen for trisomy 18 Abnormal chromosomal and genetic finding on screening mother Cassy Calvillo CNM [address] [place] [address] [address] [place] [address] [facility] Financial Service Professional [address] [address] Referral ID Status Reason Start Date Expiration Date V isits Requested Visits Authorized [id number] Closed Consult, Test & Treat PCP Updated and/or Approved 12/18/2023 12/17/2024 6 6 Encounter Details Date Type Department Care Team (Late st Contact Info) Description 12/18/2023 Transcribe Orders eDH Incoming Referrals [phone] Cassy Calvillo CNM [address] [place] [address] [address] [place], [place] [phone] Antepartum multigravida of advanced maternal age; Positive [...]
--- OUTSIDE RECORDS SUMMARY | 2024-06-04 01:00 | XMS_ITS | Clinical Summary ---
Author Organization [facility] [place] [address] Care Team Providers Care Desk Attendant Name Role Phone Unavailable Primary Care Provider [...] Hepatitis B vaccine (0-59 yrs) (1) 2007 Tetanus/Diphtheria/Pertussis Vaccines (1 - Tdap) 05/17 HPV test 2018 PAP Smear 2018 Covid-19 Vaccine (1 - season) 2024 Influenza (Flu) vaccine (1 o f 1 - Influenza standard series) 05/09/2024
--- OUTSIDE RECORDS SUMMARY | 2024-06-04 01:00 | XMS_ITS | Encounter Summary ---
Author Organization [facility] Address [address] [place] [address] Care Team Providers Care Radar Engineer Name Role Phone Glendy Diallo MD Primary Care Provid er Unavailable Encounter Details Date Type Department Care Team (Late st Contact Info) Description 10/12/2022 Lab Requisition [facility] Pathology & Laboratory Medicine - [address] [address] Outr Resulting Lab, Provider Social History Tobacco [...] Outr Resulting Lab MICROBIOLOGY - GENERAL ORDERABLES [facility] [address] [place] [address] * COVID-19 TESTING (10/11/2022 18:45 EST) COVID-19 rt-PCR Result Negative Negative 10/13/2022 12:11 EST [facility] Comment: This test [...] performed using the waldo SARS-CoV-2 assay ([employer] on the Waldo 6800 System Performing Lab Waldo [address] [facility] Lab 10/13/2022 12:11 EST [facility] Swab 10/11/2022 18:4 5 EST 10/12/2022 21:34 EST Provider Outr Resulting Lab MICROBIOLOGY - GENERAL ORDERABLES [facility] [address] [place] [address] documented in this encounter Visit Diagnoses Not on filedocumented in this encounter Care Teams Radar Engineer Relationship Specialty Start Date End Date Glendy Diallo MD PCP - General 07/21/15 documented as of this encounter
--- OUTSIDE RECORDS SUMMARY | 2024-06-04 01:00 | XMS_ITS | Encounter Summary ---
Author Organization [facility] Address [address] [place] [address] Care Team Providers Care Airway Traffic Controller Name Role Phone Glendy Diallo MD Primary Care Provid er Unavailable Encounter Details Date Type Department Care Team (Late st Contact Info) Description 12/24/2019 Lab Requisition [facility] Pathology & Laboratory Medicine - [address] [address] Unknown, Provider, Social History Tobacco Use Types [...] gonorrhoeae Result Negative Negative 12/27/2019 15:36 EDT [facility] Chlamydia trachomatis Result Negative Negative 12/27/2019 15:36 EDT [facility] Swab ENTIRE WALL OF CERVIX / Unknown Swab / Unknown 12/23/2019 13:45 EDT 12/24/2019 15:30 EDT Provider Unknown MICROBIOLOGY - GENER AL ORDERABLES [facility] [address] [place] [address] documented in this encounter Visit Diagnoses Not on filedocumented in this encounter Additional Health Concerns Infection Onset Date Last Indicated Resolved Time COVID-19 06/03/2022 06/03/2022 06/23/2022 22:1 5 EDT documented as of this encounter Care Teams Airway Traffic Controller Relationship Specialty Start Date End Date Glendy Diallo MD PCP - General 07/21/15 documented as of this encounter
--- OUTSIDE RECORDS SUMMARY | 2024-06-04 01:00 | XMS_ITS | Encounter Summary ---
Author Organization [facility] Address [address] [place] [address] Care Team Providers Care Ground Services Instructor Name Role Phone Unavailable Primary Care Provider Unavailabl e Encounter Details Date Type Department Care Team (Late st Contact Info) Description 10/12/2003 Results Only [facility] - Maple conversion [address] [place] [address] Unknown, Provider, Social History Tobacco Use Types [...] URINALYSIS ORDERABLE S [facility] [address] [place] [address] * DRUG SCREEN 6 (10/12/2003 19:09 EST) [...] URINALYSIS ORDERABLE S [facility] [address] [place] [address] documented in this encounter Visit Diagnoses Not on filedocumented in this encounter
--- OUTSIDE RECORDS SUMMARY | 2024-06-04 01:00 | XMS_ITS | Encounter Summary ---
Author Organization [facility] Address [address] [place] [address] Care Team Providers Care Hydroelectric Production Technician Name Role Phone Glendy Diallo MD Primary Care Provid er Unavailable Encounter Details Date Type Department Care Team (Late st Contact Info) Description 12/30/2019 Lab Requisition [facility] Pathology & Laboratory Medicine - [address] [address] Unknown, Provider, Social History Tobacco Use Types [...] 12:40 EDT) Hold Hold 12/30/2019 22:01 EDT [facility] Blood VENOUS BLOOD / Unknown 12/30/2019 12:40 EDT 12/30/2019 20:45 EDT Provider Unknown LAB INFO SERVICE AND SUPPORT & PHONE RESULT Performing Organization Address City/[facility]/ZIP Co de Phone Number [facility] [address] [place] [address] * HEPATITIS B SURFACE ANTIGEN (12/30/2019 12:40 EDT) Hep B Surface Ag Negative Negative 12/31/2019 10:35 EDT [facility] Blood VENOUS BLOOD / Unknown 12/30/2019 12:40 EDT 12/30/2019 20:44 EDT Provider Unknown CHEMISTRY & BLOOD GA S ORDERABLES Performing Organization Address [facility] Co de Phone Number [facility] [address] [place] [address] * HEPATITIS C AB W REFLEX TO HCV RNA BY PCR (12/30/2019 12:40 EDT) Hep C Antibody Negative Negative 12/31/2019 10:04 EDT [facility] Blood VENOUS BLOOD / Unknown 12/30/2019 12:40 EDT 12/30/2019 20:45 EDT Provider Unknown CHEMISTRY & BLOOD GA S ORDERABLES Performing Organization Address [facility] Co de Phone Number [facility] [address] [place] [address] documented in this encounter Visit Diagnoses Not on filedocumented in this encounter Additional Health Concerns Infection Onset Date Last Indicated Resolved Time COVID-19 06/03/2022 06/03/2022 06/23/2022 22:1 5 EDT documented as of this encounter Care Teams Hydroelectric Production Technician Relationship Specialty Start Date End Date Glendy Diallo MD PCP - General 07/21/15 documented as of this encounter
--- OUTSIDE RECORDS SUMMARY | 2024-06-04 01:00 | XMS_ITS | Referral Summary ---
Author Organization [facility] Address [address] [place] [address] Care Team Providers Care Pondman Name Role Phone Glendy Diallo MD Primary Care Provid er Unavailable Encounters Date Type Department Care Team Description 05/24/2024 Lab Requisition [facility] Pathology & Laboratory [address] [address] Outr Resulting Lab, Provider 05/20/2024 Lab Requisition [facility] Pathology & Laboratory [address] [address] Outr Resulting Lab, Provider 05/20/2024 Lab Requisition [facility] Pathology & Laboratory [address] [address] Outr Resulting Lab, Provider from Last 3 [...] gonorrhoeae Result Negative Negative 05/21/2024 13:48 EDT [facility] Chlamydia trachomatis Result Negative Negative 05/21/2024 13:48 EDT [facility] Swab VAGINAL STRUCTURE / Unknown 05/19/2024 16:38 EDT 05/20/2024 18:27 EDT Provider Outr Resulting Lab MICROBIOLOGY - GENERAL ORDERABLES [facility] [address] [place] [address] * (ABNORMAL) FENTANYL SCREEN WITH REFLEX TO CONFIRMATION, U (05/19/2024 16:28 EDT) Pathologist [facility] Fentanyl Screen with Reflex to Confirmation, U Positive( A) <1 ng/mL 05/21/2024 16:28 EDT [facility] Comment: Trazodone is known to cross react with the Fentanyl immunoassay and may cause a false positive Urine URINE / Unknown 05/19/2024 1 6:28 EDT 05/20/2024 17:34 EDT Narrative [facility] - 05/21/2024 16:28 EDT Testing performed by: [facility] [address] [place] [address], [facility] [address] [address] Skilled Helper: Ramu Antoine MD; CLIA # [id number] Provider Outr Resulting Lab URINALYSIS O RDERABLES [facility] [address] [place] [address], [facility] [address] [place] [address], [facility] [phone] * (ABNORMAL) FENTANYL AND METABOLITE CONFIRMATION PANEL (05/19/2024 16:28 EDT) Fentanyl Confirmation Negative <2 ng/mL 05/26/2024 14:43 EDT [facility] Norfentanyl Confirmation 11(A) <10 ng/mL 05/26/2024 14:43 EDT [facility] Urine URINE / Unknown 05/19/2024 1 6:28 EDT 05/20/2024 17:34 EDT Narrative [facility] - 05/26/2024 14:43 EDT Evidence of presence of Fentanyl below cutoff concentration. ??ALB 05/25/24 Testing performed by: [facility] [address] [place] [address], [facility], [place] [address] Skilled Helper: Ramu Antoine MD; CLIA # [id number] Provider Outr Resulting Lab GEN LAB UNIT COLLECT ORDERABLES [facility] [address] [place] [address] * XYLAZINE CONFIRMATION, U (05/19/2024 15:45 EDT) Pathologist [facility] Xylazine Confirmation Negative <50 ng/mL 05/25/2024 16:57 EDT [facility] Urine URINE / Unknown 05/19/2024 1 5:45 EDT 05/24/2024 16:27 EDT [facility] - 05/25/2024 16:57 EDT Testing performed by: [facility] [address] [place] [address], [facility] [address] [address] Skilled Helper: Ramu Antoine MD; CLIA # [id number] Provider Outr Resulting Lab GEN LAB UNIT COLLECT ORDERABLES [facility] [address] [place] [address], [address] [phone] * HEPATITIS C AB W REFLEX TO HCV RNA BY PCR (12/04/2023 11:53 EDT) Pathologist [facility] Hep C Antibody Negative Negative 12/04/2023 23:14 EDT [facility] Blood VENOUS BLOOD / Unknown 12/04/2023 11:53 EDT 12/04/2023 21:28 EDT Provider Outr Resulting Lab CHEMISTRY & BLOOD GAS ORDERABLES [facility] [address] [place] [address] from Last 3 Months or Most Recently Relevant to Health Maintenance Care Teams Pondman Relationship Specialty Start Date End Date Glendy Diallo MD PCP - General 07/21/15
--- OUTSIDE RECORDS SUMMARY | 2024-06-04 01:00 | XMS_ITS | Encounter Summary ---
Author Organization [facility] Address [address] [place] [address] Care Team Providers Care Assistant Professor Of Mathematics Name Role Phone Glendy Diallo MD Primary Care Provid er Unavailable Encounter Details Date Type Department Care Team (Late st Contact Info) Description 12/04/2023 Lab Requisition [facility] Pathology & Laboratory Medicine - [address] [address] Outr Resulting Lab, Provider Social History Tobacco [...] Surface Ag Negative Negative 12/04/2023 22:44 EDT [facility] Blood VENOUS BLOOD / Unknown 12/04/2023 11:53 EDT 12/04/2023 21:28 EDT Provider Outr Resulting Lab CHEMISTRY & BLOOD GAS ORDERABLES [facility] [address] [place] [address] * HEPATITIS C AB W REFLEX TO HCV RNA BY PCR (12/04/2023 11:53 EDT) Hep C Antibody Negative Negative 12/04/2023 23:14 EDT [facility] Blood VENOUS BLOOD / Unknown 12/04/2023 11:53 EDT 12/04/2023 21:28 EDT Provider Outr Resulting Lab CHEMISTRY & BLOOD GAS ORDERABLES [facility] [address] [place] [address] documented in this encounter Visit Diagnoses Not on filedocumented in this encounter Care Teams Assistant Professor Of Mathematics Relationship Specialty Start Date End Date Glendy Diallo MD PCP - General 07/21/15 documented as of this encounter
--- OUTSIDE RECORDS SUMMARY | 2024-06-04 01:00 | XMS_ITS | Encounter Summary ---
Author Organization [facility] Address [address] [place] [address] Care Team Providers Care Shoes Hand Sewer Name Role Phone Glendy Diallo MD Primary Care Provid er Unavailable Encounter Details Date Type Department Care Team (Late st Contact Info) Description 06/02/2020 Lab Requisition [facility] Pathology & Laboratory Medicine - [address] [address] Outr Resulting Lab, Provider Social History Tobacco [...] Outr Resulting Lab MICROBIOLOGY - GENERAL ORDERABLES [facility] [address] [place] [address] * COVID-19 TESTING (06/02/2020 20:00 EDT) COVID-19 rt-PCR Result Negative Negative 06/03/2020 12:47 EDT [facility] Comment: This test has not [...] history, and epidemiological information. Performed on the [employer] Fusion instrument Performing Lab [place] [facility] 06/03/2020 12:47 EDT [facility] Swab 06/02/2020 20:0 0 EDT 06/03/2020 9:56 EDT Provider Outr Resulting Lab MICROBIOLOGY - GENERAL ORDERABLES [facility] [address] [place] [address] documented in this encounter Visit Diagnoses Not on filedocumented in this encounter Additional Health Concerns Infection Onset Date Last Indicated Resolved Time COVID-19 06/03/2022 06/03/2022 06/23/2022 22:1 5 EDT documented as of this encounter Care Teams Shoes Hand Sewer Relationship Specialty Start Date End Date Glendy Diallo MD PCP - General 07/21/15 documented as of this encounter
--- OUTSIDE RECORDS SUMMARY | 2024-06-04 01:00 | XMS_ITS | Encounter Summary ---
Author Organization [facility] Address [address] [place] [address] Care Team Providers Care Heel Nail Rasper Name Role Phone Unavailable Primary Care Provider Unavailabl e Encounter Details Date Type Department Care Team (Latest Contact Info) Description 05/15/2000 16:29 EDT Hospital Encounter [facility] Emergency Department - [facility] [address] [place] [address] Emergency, Default, MD Discharge Disposition: Home or [...]
--- OUTSIDE RECORDS SUMMARY | 2024-06-04 01:00 | XMS_ITS | Encounter Summary ---
Author Organization [facility] Address [address] [place] [address] Care Team Providers Care Emergency Room Rn Name Role Phone Unavailable Primary Care Provider Unavailabl e Encounter Details Date Type Department Care Team (Late st Contact Info) Description 09/22/2003 Results Only [facility] - Maple conversion [address] [place] [address] Unknown, Provider, Social History Tobacco Use Types [...] MD URINALYSIS ORDERABLE S Performing Organization Address City/State/[facility] Co de Phone Number [facility] [address] [place] [address] documented in this encounter Visit Diagnoses Not on filedocumented in this encounter
--- OUTSIDE RECORDS SUMMARY | 2024-06-04 01:00 | XMS_ITS | Encounter Summary ---
Author Organization [facility] Address [address] [place] [address] Care Team Providers Care Activity Manager Name Role Phone Glendy Diallo MD Primary Care Provid er Unavailable Encounter Details Date Type Department Care Team (Late st Contact Info) Description 12/04/2023 Lab Requisition [facility] Pathology & Laboratory Medicine - [address] [address] Outr Resulting Lab, Provider Social History Tobacco [...] 4th Generation Negative Negative 12/04/2023 23:38 EDT [facility] Comment:If acute HIV-1 infec tion is suspected in a high risk patient, submit plasma specimen for HIV-1 RNA quantitation test. Blood VENOUS BLOOD / Unknown 12/04/2023 11:53 EDT 12/04/2023 21:28 EDT Narrative [facility] - 12/04/2023 23:38 EDT Fourth Generation assay performed on the Siemens Centaur XPT. Provider Outr Resulting Lab IMMUNOLOGY A ND SEROLOGY ORDERABLES [facility] [address] [place] [address] documented in this encounter Visit Diagnoses Not on filedocumented in this encounter Care Teams Activity Manager Relationship Specialty Start Date End Date Glendy Diallo MD PCP - General 07/21/15 documented as of this encounter
--- OUTSIDE RECORDS SUMMARY | 2024-06-04 01:00 | XMS_ITS | Encounter Summary ---
Author Organization [facility] Address [address] [place] [address] Care Team Providers Care Temporary Data Entry Clerk Name Role Phone Glendy Diallo MD Primary Care Provid er Unavailable Encounter Details Date Type Department Care Team (Late st Contact Info) Description 12/29/2023 Lab Requisition [facility] Pathology & Laboratory Medicine - [address] [address] Outr Resulting Lab, Provider Social History Tobacco [...] gonorrhoeae Result Negative Negative 12/30/2023 14:01 EDT [facility] Chlamydia trachomatis Result Negative Negative 12/30/2023 14:01 EDT [facility] Urine URINE / Unknown 12/28/2023 1 7:40 EDT 12/29/2023 17:05 EDT Narrative [facility] - 12/30/2023 14:01 EDT A first catch urine specimen is acceptable for detection of Gonorrhea and Chlamydia, but might detect up to 10% fewer infections when compared with vaginal and endocervical swab samples. Provider Outr Resulting Lab MICROBIOLOGY - GENERAL ORDERABLES [facility] [address] [place] [address] documented in this encounter Visit Diagnoses Not on filedocumented in this encounter Care Teams Temporary Data Entry Clerk Relationship Specialty Start Date End Date Glendy Diallo MD PCP - General 07/21/15 documented as of this encounter
--- OUTSIDE RECORDS SUMMARY | 2024-06-04 01:00 | XMS_ITS | Encounter Summary ---
Author Organization [facility] Address [address] [place] [address] Care Team Providers Care Digital Experience Manager Name Role Phone Unavailable Primary Care Provider Unavailabl e Encounter Details Date Type Department Care Team (Late st Contact Info) Description 10/23/2003 Results Only [facility] - Maple conversion [address] [place] [address] Unknown, Provider, Social History Tobacco Use Types [...] MD URINALYSIS ORDERABLE S Performing Organization Address City/State/[facility] Co de Phone Number [facility] [address] [place] [address] documented in this encounter Visit Diagnoses Not on filedocumented in this encounter
--- OUTSIDE RECORDS SUMMARY | 2024-06-04 01:00 | XMS_ITS | Encounter Summary ---
Author Organization [facility] Address [address] [place] [address] Care Team Providers Care Director Strategy Name Role Phone Glendy Diallo MD Primary Care Provid er Unavailable Encounter Details Date Type Department Care Team (Late st Contact Info) Description 12/30/2019 Lab Requisition [facility] Pathology & Laboratory Medicine - [address] [address] Unknown, Provider, Social History Tobacco Use Types [...] Generation Negative Negative 12/31/2019 10:06 EDT [facility] Comment: If acute HIV-1 infection is suspected in a high risk ??patient, submit plasma specimen for HIV-1 RNA quantitation test. Fourth Generation assay performed on the Siemens [employer]. Blood VENOUS BLOOD / Unknown 12/30/2019 12:40 EDT 12/30/2019 20:49 EDT Provider Unknown IMMUNOLOGY AND SEROL UZMA ORDERABLES [facility] [address] [place] [address] documented in this encounter Visit Diagnoses Not on filedocumented in this encounter Additional Health Concerns Infection Onset Date Last Indicated Resolved Time COVID-19 06/03/2022 06/03/2022 06/23/2022 22:1 5 EDT documented as of this encounter Care Teams Director Strategy Relationship Specialty Start Date End Date Glendy Diallo MD PCP - General 07/21/15 documented as of this encounter
--- OUTSIDE RECORDS SUMMARY | 2024-06-04 01:00 | XMS_ITS | Encounter Summary ---
Author Organization [facility] Address [address] [place] [address] Care Team Providers Care Open Soaper Tender Name Role Phone Glendy Diallo MD Primary Care Provid er Unavailable Encounter Details Date Type Department Care Team (Late st Contact Info) Description 12/04/2023 Lab Requisition [facility] Pathology & Laboratory Medicine - [address] [address] Outr Resulting Lab, Provider Social History Tobacco [...] gonorrhoeae Result Negative Negative 12/05/2023 15:34 EDT [facility] Chlamydia trachomatis Result Negative Negative 12/05/2023 15:34 EDT [facility] Pap Test CERVIX UTERI STRUCTURE / Unknown 12/04/2023 11:00 EDT 12/05/2023 9:40 EDT Provider Outr Resulting Lab MICROBIOLOGY - GENERAL ORDERABLES [facility] [address] [place] [address] documented in this encounter Visit Diagnoses Not on filedocumented in this encounter Care Teams Open Soaper Tender Relationship Specialty Start Date End Date Glendy Diallo MD PCP - General 07/21/15 documented as of this encounter
--- OUTSIDE RECORDS SUMMARY | 2024-06-04 01:00 | XMS_ITS | Encounter Summary ---
Author Organization [facility] Address [address] [place] [address] Care Team Providers Care Supervisor Prepress Name Role Phone Glendy Diallo MD Primary Care Provid er Unavailable Encounter Details Date Type Department Care Team (Late st Contact Info) Description 12/27/2019 Lab Requisition [facility] Pathology & Laboratory Medicine - [address] [address] Sergio Olvera CNM [address] [id number] Encounter for other general examination Social History [...] types, PCR Negative Negative 12/30/2019 14:02 EDT [facility] Comment:No E6 or E7 mRNA is detected from HPV types 16,18,31,33,35,39,45,51,52,56,58,59,66, and 68 by cnc operator machinist mediated amplification. Papanicolaou smear specimen (specimen) CERVIX UTERI STRUCTURE / Unknown 12/23/2019 13:45 EDT 12/29/2019 10:44 EDT Sergio Olvera [facility] MICROBIOLOGY - GENER AL ORDERABLES [facility] [address] [place] [address] * PAP TEST (12/23/2019 13:45 EDT) Specimens A. Cervix and/or Endocervix, ThinPrep Imaging System with Manual Evaluation 12/31/2019 13:31 [facility] Specimen Adequacy Satisfactory for Evaluation - transformation zone component present 12/31/2019 13:31 [facility] General Categorization Negative for intraepithelial lesion or malignancy 12/31/2019 13:31 [facility] Descriptive Diagnosis Fungal organisms present morphologically consistent with Emilie species. 12/31/2019 13:31 [facility] Attestation By the signature below, the attending physician certifies that they have personally conducted a gross and/or microscopic examination of the described specimens and rendered or confirmed the above diagnosis. 12/31/2019 13:31 [facility] at 1331 Clinical History NONE 12/31/19 20 13:31 [facility] HPV The result for the Human Papillomavirus (HPV) Detection-High Risk Types is Negative. No E6 or E7 mRNA is detected from HPV types 16,18,31,33,35,39 ,45,51,52,56,58,5 9,66, and 68 by cnc operator machinist mediated amplification.Nina ting was performed on specimen [id number] and was resulted on 12/30/2019 1357 EDT by LUCI, LAB INSTRUMENT RESULTS IN 12/31/2019 13:31 [facility] Scanned Images 12/31/2019 13:31 [facility] Papanicolaou smear specimen (specimen) CERVIX UTERI STRUCTURE / Unknown 12/23/2019 13:45 EDT 12/27/2019 9:01 EDT Sergio Olvera [facility] PATHOLOGY ORDERABLES [facility] [address] [place] [address] documented in this encounter Visit Diagnoses Diagnosis Encounter for other general examination documented in this encounter Additional Health Concerns Infection Onset Date Last Indicated Resolved Time COVID-19 06/03/2022 06/03/2022 06/23/2022 22:1 5 EDT documented as of this encounter Care Teams Supervisor Prepress Relationship Specialty Start Date End Date Glendy Diallo MD PCP - General 07/21/15 documented as of this encounter
--- OUTSIDE RECORDS SUMMARY | 2024-06-04 01:00 | XMS_ITS | Encounter Summary ---
Author Organization [facility] Address [address] [place] [address] Care Team Providers Care Associate Professor Physician Name Role Phone Glendy Diallo MD Primary Care Provid er Unavailable Encounter Details Date Type Department Care Team (Late st Contact Info) Description 05/20/2024 Lab Requisition [facility] Pathology & Laboratory Medicine - [facility] [address] [place] [address] Outr Resulting Lab, Provider Social History Tobacco [...] TO CONFIRMATION, U Routine 05/19/2024 16:28 EDT FENTANYL AND METABOLITE CONFIRMATION PANEL Today 05/19/2024 16:28 EDT documented in this encounter Results * (ABNORMAL) FENTANYL AND METABOLITE CONFIRMATION PANEL (05/19/2024 16:28 EDT) Fentanyl Confirmation Negative <2 ng/mL 05/26/2024 14:43 EDT [facility] Norfentanyl Confirmation 11(A) <10 ng/mL 05/26/2024 14:43 EDT [facility] Urine URINE / Unknown 05/19/2024 1 6:28 EDT 05/20/2024 17:34 EDT Narrative [facility] - 05/26/2024 14:43 EDT Evidence of presence of Fentanyl below cutoff concentration. ??ALB 05/25/24 Testing performed by: [facility] [address] [place] [address] Deep Submergence Vehicle Operator: Ramu Antoine MD; CLIA # [id number] Provider Outr Resulting Lab GEN LAB UNIT COLLECT ORDERABLES Performing Organization Address [facility] de Phone Number [facility] [address] [place] [address] * (ABNORMAL) FENTANYL SCREEN WITH REFLEX TO CONFIRMATION, U (05/19/2024 16:28 EDT) Fentanyl Screen with Reflex to Confirmation, U Positive( A) <1 ng/mL 05/21/2024 16:28 EDT [facility] Comment: Trazodone is known to cross react with the Fentanyl immunoassay and may cause a false positive Urine URINE / Unknown 05/19/2024 1 6:28 EDT 05/20/2024 17:34 EDT Narrative [facility] - 05/21/2024 16:28 EDT Testing performed by: [facility] [address] [place] [address] Deep Submergence Vehicle Operator: Ramu Antoine MD; CLIA # [id number] Provider Outr Resulting Lab URINALYSIS O RDERABLES Performing Organization Address [facility] Co de Phone Number [facility] [address] [place] [address] documented in this encounter Visit Diagnoses Not on filedocumented in this encounter Care Teams Associate Professor Physician Relationship Specialty Start Date End Date Glendy Diallo MD PCP - General 07/21/15 documented as of this encounter
--- OUTSIDE RECORDS SUMMARY | 2024-06-04 01:00 | XMS_ITS | Encounter Summary ---
Author Organization [facility] Address [address] [place] [address] Care Team Providers Care Stockroom Supervisor Name Role Phone Glendy Diallo MD Primary Care Provid er Unavailable Encounter Details Date Type Department Care Team (Late st Contact Info) Description 05/20/2024 Lab Requisition [facility] Pathology & Laboratory Medicine - [address] [address] Outr Resulting Lab, Provider Social History Tobacco [...] AMPLIFIED NUCLEIC ACID Routine 05/19/2024 16:38 EDT documented in this encounter Results * CHLAMYDIA/N. GONORRHOEAE AMPLIFIED NUCLEIC ACID (05/19/2024 16:38 EDT) Neisseria gonorrhoeae Result Negative Negative 05/21/2024 13:48 EDT [facility] Chlamydia trachomatis Result Negative Negative 05/21/2024 13:48 EDT [facility] Swab VAGINAL STRUCTURE / Unknown 05/19/2024 16:38 EDT 05/20/2024 18:27 EDT Provider Outr Resulting Lab MICROBIOLOGY - GENERAL ORDERABLES [facility] [address] [place] [address] documented in this encounter Visit Diagnoses Not on filedocumented in this encounter Care Teams Stockroom Supervisor Relationship Specialty Start Date End Date Glendy Diallo MD PCP - General 07/21/15 documented as of this encounter
--- OUTSIDE RECORDS SUMMARY | 2024-06-04 01:00 | XMS_ITS | Encounter Summary ---
Author Organization [facility] Address [address] [place] [address] Care Team Providers Care Senior Electronics Engineer Name Role Phone Glendy Diallo MD Primary Care Provid er Unavailable Encounter Details Date Type Department Care Team (Late st Contact Info) Description 06/03/2022 Lab Requisition [facility] Pathology & Laboratory Medicine - [address] [address] Outr Resulting Lab, Provider Social History Tobacco [...] Priority Date/Time Associated Diagnosis Comments ZZCOVID-19 TEST [facility] PCR Today 06/03/2022 11:29 EDT COVID-19 TESTING Routine 06/03/2022 11:2 9 EDT documented in this encounter Results * COVID-19 TEST [facility] PCR (06/03/2022 11:29 EDT) Swab 06/03/2022 11:2 9 EDT 06/04/2022 17:09 EDT Provider Outr Resulting Lab MICROBIOLOGY - GENERAL ORDERABLES [facility] [address] [place] [address] * (ABNORMAL) COVID-19 TESTING (06/03/2022 11:29 EDT) COVID-19 rt-PCR Result Positive( AA) Negative 06/05/2022 12:02 EDT [facility] Comment: This test has [...] was performed using the waldo SARS-CoV-2 assay ([employer] on the Waldo 6800 System Performing Lab Waldo 6800 [facility] 06/05/2022 12:02 EDT [facility] Swab 06/03/2022 11:2 9 EDT 06/04/2022 17:09 EDT Provider Outr Resulting Lab MICROBIOLOGY - GENERAL ORDERABLES [facility] [address] [place] [address] documented in this encounter Visit Diagnoses Not on filedocumented in this encounter Additional Health Concerns Infection Onset Date Last Indicated Resolved Time COVID-19 06/03/2022 06/03/2022 06/23/2022 22:1 5 EDT documented as of this encounter Care Teams Senior Electronics Engineer Relationship Specialty Start Date End Date Glendy Diallo MD PCP - General 07/21/15 documented as of this encounter
--- NOTE | 2024-06-04 07:22 | DI.US_ITS ---
Exam(s) US OB SAMUEL WEIGHT EXAM: US OB SAMUEL WEIGHT CLINICAL HISTORY: interval growth,DRUG USE,Z34.90,o99.320. TECHNIQUE: Transabdominal obstetrical ultrasound performed. COMPARISON: US US OB SAMUEL WEIGHT from 05/05/2024 FINDINGS: Number of fetuses: 1 position: CEPHALIC Placental location: There is a grade 2 posterior placenta. No evidence of previa. BIOMETRIC DATA: BPD: 9.06cm, 36weeks 5days HC: 33.81cm, 38weeks 6days AC: 33.34cm, 37weeks 2days FL: 6.79cm, 34weeks 6days EFW: 3,030.37g, 6lb 12.08oz, 12.8% Composite Age: 37weeks CARLA: 06/25/2024 Heart Rate: 148bpm Amniotic fluid index: 11.01cm. The largest pocket measures 4.04 cm. IMPRESSION: 1. Single live intrauterine gestation as above. 2. Estimated weight is 3030gms. This is the 13th percentile. 3. Amniotic fluid index is 11.0 cm. The largest pocket measures 4.04 cm. DATA REPOSITORY:
== END 2024-06-04 01:14 ==
LOC: DI 00:55
PROVIDERS: Visit Provider Advanced Practice Midwife
DX: O99.323 Drug use complicating pregnancy, third trimester (principal); F14.10 Cocaine abuse, uncomplicated; Z3A.38 38 weeks gestation of pregnancy
CPT/HCPCS: 76816

== ENCOUNTER 2024-06-10 15:12 | Outpatient (CLI) | payer MEDICAID, SELFPAY ==
--- OUTSIDE RECORDS SUMMARY | 2024-06-10 15:14 | XMS_ITS | Encounter Summary ---
Author Organization [facility] Address [address] [place] [address] Care Team Providers Care Transportation Project Manager Name Role Phone Glendy Diallo MD Primary Care Provid er Unavailable Encounter Details Date Type Department Care Team (Late st Contact Info) Description 12/04/2023 Lab Requisition [facility] Pathology & Laboratory Medicine - [address] [address] Outr Resulting Lab, Provider Social History Tobacco [...] 4th Generation Negative Negative 12/04/2023 23:38 EDT [facility] Comment:If acute HIV-1 infec tion is suspected in a high risk patient, submit plasma specimen for HIV-1 RNA quantitation test. Blood VENOUS BLOOD / Unknown 12/04/2023 11:53 EDT 12/04/2023 21:28 EDT Narrative [facility] - 12/04/2023 23:38 EDT Fourth Generation assay performed on the Siemens Centaur XPT. Provider Outr Resulting Lab IMMUNOLOGY A ND SEROLOGY ORDERABLES [facility] [address] [place] [address] documented in this encounter Visit Diagnoses Not on filedocumented in this encounter Care Teams Transportation Project Manager Relationship Specialty Start Date End Date Glendy Diallo MD PCP - General 07/21/15 documented as of this encounter
--- OUTSIDE RECORDS SUMMARY | 2024-06-10 15:14 | XMS_ITS | Encounter Summary ---
Author Organization [facility] Address [address] [place] [address] Care Team Providers Care Cloth Printing Inspector Name Role Phone Glendy Diallo MD Primary Care Provid er Unavailable Encounter Details Date Type Department Care Team (Late st Contact Info) Description 12/04/[address] [facility] Pathology & Laboratory Medicine - [address] [address] Outr Resulting Lab, Provider Social History Tobacco [...] Ab Positive See Note 12/05/2023 10:33 EDT [facility] Comment:Presence of detectab le Varicella Zoster virus IgG antibodies. Blood VENOUS BLOOD / Unknown 12/04/2023 11:53 EDT 12/04/2023 21:28 EDT Provider Outr Resulting Lab IMMUNOLOGY A ND SEROLOGY ORDERABLES [facility] [address] [place] [address] * RUBELLA IGG ANTIBODY (12/04/2023 11:53 EDT) Rubella IgG Ab Positive See Note 12/05/2023 11:09 EDT [facility] Comment:Positive for IgG ant ibodies to Rubella virus. Blood VENOUS BLOOD / Unknown 12/04/2023 11:53 EDT 12/04/2023 21:28 EDT Provider Outr Resulting Lab CHEMISTRY & BLOOD GAS ORDERABLES [facility] [address] [place] [address] documented in this encounter Visit Diagnoses Not on filedocumented in this encounter Care Teams Cloth Printing Inspector Relationship Specialty Start Date End Date Glendy Diallo MD PCP - General 07/21/15 documented as of this encounter
--- OUTSIDE RECORDS SUMMARY | 2024-06-10 15:14 | XMS_ITS | Encounter Summary ---
Author Organization [facility] Address [address] [place] [address] Care Team Providers Care Tableau Analyst Name Role Phone Unavailable Primary Care Provider Unavailabl e Encounter Details Date Type Department Care Team (Late st Contact Info) Description 10/12/2003 Results Only [facility] [address] [place] [address] Unknown, Provider, Social History Tobacco Use Types [...] URINALYSIS ORDERABLE [facility] [address] [place] [address] * DRUG SCREEN 6 (10/12/2003 19:09 EST) [...] URINALYSIS ORDERABLE [facility] [address] [place] [address] documented in this encounter Visit Diagnoses Not on filedocumented in this encounter
--- OUTSIDE RECORDS SUMMARY | 2024-06-10 15:14 | XMS_ITS | Encounter Summary ---
Author Organization [facility] Address [address] [place] [address] Care Team Providers Care Bakery Manager Name Role Phone Glendy Diallo MD Primary Care Provid er Unavailable Encounter Details Date Type Department Care Team (Late st Contact Info) Description 05/24/2024 Lab Requisition [facility] Pathology & Laboratory Medicine - [address] [address] Outr Resulting Lab, Provider Social History Tobacco [...] Confirmation Negative <50 ng/mL 05/25/2024 16:57 EDT [facility] Urine URINE / Unknown 05/19/2024 1 5:45 EDT 05/24/2024 16:27 EDT Narrative [facility] - 05/25/2024 16:57 EDT Testing performed by: [facility] [address] [place] [address], [address], [place] [address] Manager Integrity: Ramu Antoine MD; CLIA # [id number] Provider Outr Resulting Lab GEN LAB UNIT COLLECT ORDERABLES [facility] [address] [facility], [address] [phone] documented in this encounter Visit Diagnoses Not on filedocumented in this encounter Care Teams Bakery Manager Relationship Specialty Start Date End Date Glendy Diallo MD PCP - General 07/21/15 documented as of this encounter
--- OUTSIDE RECORDS SUMMARY | 2024-06-10 15:14 | XMS_ITS | Clinical Summary ---
Author Organization [facility] Address [address] [place] [address] Care Team Providers Care Medical Certification Specialist Name Role Phone Glendy Diallo MD Primary Care Provid er Unavailable Encounters Date Type Department Care Team Description 05/24/2024 Lab Requisition [facility] Pathology & Laboratory [address] [address] Outr Resulting Lab, Provider 05/20/2024 Lab Requisition [facility] Pathology & Laboratory [address] [address] Outr Resulting Lab, Provider 05/20/2024 Lab Requisition [facility] Pathology & Laboratory [address] [address] Outr Resulting Lab, Provider from Last 3 [...] gonorrhoeae Result Negative Negative 05/21/2024 13:48 EDT [facility] Chlamydia trachomatis Result Negative Negative 05/21/2024 13:48 EDT [facility] Swab VAGINAL STRUCTURE / Unknown 05/19/2024 16:38 EDT 05/20/2024 18:27 EDT Provider Outr Resulting Lab MICROBIOLOGY - GENERAL ORDERABLES [facility] [address] [place] [address] * (ABNORMAL) FENTANYL SCREEN WITH REFLEX TO CONFIRMATION, U (05/19/2024 16:28 EDT) Fentanyl Screen with Reflex to Confirmation, U Positive( A) <1 ng/mL 05/21/2024 16:28 EDT [facility] Comment: Trazodone is known to cross react with the Fentanyl immunoassay and may cause a false positive Urine URINE / Unknown 05/19/2024 1 6:28 EDT 05/20/2024 17:34 EDT Narrative [facility] - 05/21/2024 16:28 EDT Testing performed by: [facility] [address] [place] [address], [address], [place] [address] Risk Specialist: Ramu Antoine MD; CLIA # [id number] Provider Outr Resulting Lab URINALYSIS O RDERABLES [facility] [address] [place] [address], [facility] [address] [phone] * (ABNORMAL) FENTANYL AND METABOLITE CONFIRMATION PANEL (05/19/2024 16:28 EDT) Fentanyl Confirmation Negative <2 ng/mL 05/26/2024 14:43 EDT [facility] Norfentanyl Confirmation 11(A) <10 ng/mL 05/26/2024 14:43 EDT [facility] Urine URINE / Unknown 05/19/2024 1 6:28 EDT 05/20/2024 17:34 EDT Narrative [facility] - 05/26/2024 14:43 EDT Evidence of presence of Fentanyl below cutoff concentration. ??ALB 05/25/24 Testing performed by: [facility] [address] [place] [address], [facility] [address] [address] Risk Specialist: Ramu Antoine MD; CLIA # [id number] Provider Outr Resulting Lab GEN LAB UNIT COLLECT ORDERABLES [facility] [address] [place] [address], [address] [phone] * XYLAZINE CONFIRMATION, U (05/19/2024 15:45 EDT) Xylazine Confirmation Negative <50 ng/mL 05/25/2024 16:57 EDT [facility] Urine URINE / Unknown 05/19/2024 1 5:45 EDT 05/24/2024 16:27 EDT Narrative [facility] - 05/25/2024 16:57 EDT Testing performed by: [facility] [address] [place] [address], [facility] [address] [address] Risk Specialist: Ramu Antoine MD; CLIA # [id number] Provider Outr Resulting Lab GEN LAB UNIT COLLECT ORDERABLES [facility] [address] [place] [address], [facility] [address] [phone] * HEPATITIS C AB W REFLEX TO HCV RNA BY PCR (12/04/2023 11:53 EDT) Hep C Antibody Negative Negative 12/04/2023 23:14 EDT [facility] Blood VENOUS BLOOD / Unknown 12/04/2023 11:53 EDT 12/04/2023 21:28 EDT Provider Outr Resulting Lab CHEMISTRY & BLOOD GAS ORDERABLES [facility] [address] [place] [address] from Last 3 Months or Most Recently Relevant to Health Maintenance Care Teams Medical Certification Specialist Relationship Specialty Start Date End Date Glendy Diallo MD PCP - General 07/21/15
--- OUTSIDE RECORDS SUMMARY | 2024-06-10 15:14 | XMS_ITS | Encounter Summary ---
Author Organization [facility] Address [address] [place] [address] Care Team Providers Care Direct Mail Clerk Name Role Phone Glendy Diallo MD Primary Care Provid er Unavailable Encounter Details Date Type Department Care Team (Late st Contact Info) Description 12/30/2019 Lab Requisition [facility] Pathology & Laboratory Medicine - [address] [address] Unknown, Provider, Social History Tobacco Use Types [...] Ab Positive See Note 12/31/2019 10:20 EDT [facility] Comment:Presence of detectab le Varicella Zoster virus IgG antibodies. Blood VENOUS BLOOD / Unknown 12/30/2019 12:40 EDT 12/30/2019 21:01 EDT Provider Unknown IMMUNOLOGY AND SEROL UZMA ORDERABLES [facility] [address] [place] [address] * RUBELLA IGG ANTIBODY (12/30/2019 12:40 EDT) Rubella IgG Ab Positive See Note 12/31/2019 10:20 EDT [facility] Comment:Positive for IgG ant ibodies to Rubella virus. Blood VENOUS BLOOD / Unknown 12/30/2019 12:40 EDT 12/30/2019 21:01 EDT Provider Unknown CHEMISTRY & BLOOD GA S ORDERABLES [facility] [address] [place] [address] documented in this encounter Visit Diagnoses Not on filedocumented in this encounter Additional Health Concerns Infection Onset Date Last Indicated Resolved Time COVID-19 06/03/2022 06/03/2022 06/23/2022 22:1 5 EDT documented as of this encounter Care Teams Direct Mail Clerk Relationship Specialty Start Date End Date Glendy Diallo MD PCP - General 07/21/15 documented as of this encounter
--- OUTSIDE RECORDS SUMMARY | 2024-06-10 15:14 | XMS_ITS | Encounter Summary ---
Author Organization [facility] Address [address] [place] [address] Care Team Providers Care Track Repair Laborer Name Role Phone Glendy Diallo MD Primary Care Provid er Unavailable Encounter Details Date Type Department Care Team (Late st Contact Info) Description 12/30/2019 Lab Requisition [facility] Pathology & Laboratory Medicine - [address] [address] Unknown, Provider, Social History Tobacco Use Types [...] 4th Generation Negative Negative 12/31/2019 10:06 EDT [facility] Comment: If acute HIV-1 infection is suspected in a high risk ??patient, submit plasma specimen for HIV-1 RNA quantitation test. Fourth Generation assay performed on the Siemens Nimbleaur. Blood VENOUS BLOOD / Unknown 12/30/2019 12:40 EDT 12/30/2019 20:49 EDT Provider Unknown IMMUNOLOGY AND SEROL UZMA ORDERABLES [facility] [address] [place] [address] documented in this encounter Visit Diagnoses Not on filedocumented in this encounter Additional Health Concerns Infection Onset Date Last Indicated Resolved Time COVID-19 06/03/2022 06/03/2022 06/23/2022 22:1 5 EDT documented as of this encounter Care Teams Track Repair Laborer Relationship Specialty Start Date End Date Glendy Diallo MD PCP - General 07/21/15 documented as of this encounter
--- OUTSIDE RECORDS SUMMARY | 2024-06-10 15:14 | XMS_ITS | Referral Summary ---
Author Organization [facility] Address [address] [place] [address] Care Team Providers Care Tie Puller Name Role Phone Glendy Diallo MD Primary Care Provid er Unavailable Encounters Date Type Department Care Team Description 05/24/2024 Lab Requisition [facility] Pathology & Laboratory [address] [address] Outr Resulting Lab, Provider 05/20/2024 Lab Requisition [facility] Pathology & Laboratory [address] [address] Outr Resulting Lab, Provider 05/20/2024 Lab Requisition [facility] Pathology & Laboratory [address] [address] Outr Resulting Lab, Provider from Last 3 [...] gonorrhoeae Result Negative Negative 05/21/2024 13:48 EDT [facility] Chlamydia trachomatis Result Negative Negative 05/21/2024 13:48 EDT [facility] Swab VAGINAL STRUCTURE / Unknown 05/19/2024 16:38 EDT 05/20/2024 18:27 EDT Provider Outr Resulting Lab MICROBIOLOGY - GENERAL ORDERABLES [facility] [address] [place] [address] * (ABNORMAL) FENTANYL SCREEN WITH REFLEX TO CONFIRMATION, U (05/19/2024 16:28 EDT) Pathologist [facility] Fentanyl Screen with Reflex to Confirmation, U Positive( A) <1 ng/mL 05/21/2024 16:28 EDT [facility] Comment: Trazodone is known to cross react with the Fentanyl immunoassay and may cause a false positive Urine URINE / Unknown 05/19/2024 1 6:28 EDT 05/20/2024 17:34 EDT Narrative [facility] - 05/21/2024 16:28 EDT Testing performed by: [facility] [address] [place] [address], [facility] [address], [place] [address] Microbiology Laboratory Manager: Ramu Antoine MD; CLIA # [id number] Provider Outr Resulting Lab URINALYSIS O RDERABLES [facility] [address] [place] [address], [facility] [address] [place] [address], [facility] [phone] * (ABNORMAL) FENTANYL AND METABOLITE CONFIRMATION PANEL (05/19/2024 16:28 EDT) Fentanyl Confirmation Negative <2 ng/mL 05/26/2024 14:43 EDT [facility] Norfentanyl Confirmation 11(A) <10 ng/mL 05/26/2024 14:43 EDT [facility] Urine URINE / Unknown 05/19/2024 1 6:28 EDT 05/20/2024 17:34 EDT Narrative [facility] - 05/26/2024 14:43 EDT Evidence of presence of Fentanyl below cutoff concentration. ??ALB 05/25/24 Testing performed by: [facility] [address] [place] [address], [facility] 2, [place] [address] Microbiology Laboratory Manager: Ramu Antoine MD; CLIA # [id number] Provider Outr Resulting Lab GEN LAB UNIT COLLECT ORDERABLES [facility] [address] [place] [address] * XYLAZINE CONFIRMATION, U (05/19/2024 15:45 EDT) Pathologist [facility] Xylazine Confirmation Negative <50 ng/mL 05/25/2024 16:57 EDT [facility] Urine URINE / Unknown 05/19/2024 1 5:45 EDT 05/24/2024 16:27 EDT [facility] - 05/25/2024 16:57 EDT Testing performed by: [facility] [address] [place] [address], [facility] [address] [address] Microbiology Laboratory Manager: Ramu Antoine MD; CLIA # [id number] Provider Outr Resulting Lab GEN LAB UNIT COLLECT ORDERABLES [facility] [address] [place] [address], [address] [phone] * HEPATITIS C AB W REFLEX TO HCV RNA BY PCR (12/04/2023 11:53 EDT) Pathologist [facility] Hep C Antibody Negative Negative 12/04/2023 23:14 EDT [facility] Blood VENOUS BLOOD / Unknown 12/04/2023 11:53 EDT 12/04/2023 21:28 EDT Provider Outr Resulting Lab CHEMISTRY & BLOOD GAS ORDERABLES [facility] [address] [place] [address] from Last 3 Months or Most Recently Relevant to Health Maintenance Care Teams Tie Puller Relationship Specialty Start Date End Date Glendy Diallo MD PCP - General 07/21/15
--- OUTSIDE RECORDS SUMMARY | 2024-06-10 15:14 | XMS_ITS | Encounter Summary ---
Author Organization [facility] Address [address] [place] [address] Care Team Providers Care Junior Technical Writer Name Role Phone Glendy Diallo MD Primary Care Provid er Unavailable Encounter Details Date Type Department Care Team (Late st Contact Info) Description 12/24/2019 Lab Requisition [facility] Pathology & Laboratory Medicine - [address] [address] Unknown, Provider, Social History Tobacco Use Types [...] gonorrhoeae Result Negative Negative 12/27/2019 15:36 EDT [facility] Chlamydia trachomatis Result Negative Negative 12/27/2019 15:36 EDT [facility] Swab ENTIRE WALL OF CERVIX / Unknown Swab / Unknown 12/23/2019 13:45 EDT 12/24/2019 15:30 EDT Provider Unknown MICROBIOLOGY - GENER AL ORDERABLES [facility] [address] [place] [address] documented in this encounter Visit Diagnoses Not on filedocumented in this encounter Additional Health Concerns Infection Onset Date Last Indicated Resolved Time COVID-19 06/03/2022 06/03/2022 06/23/2022 22:1 5 EDT documented as of this encounter Care Teams Junior Technical Writer Relationship Specialty Start Date End Date Glendy Diallo MD PCP - General 07/21/15 documented as of this encounter
--- OUTSIDE RECORDS SUMMARY | 2024-06-10 15:14 | XMS_ITS | Encounter Summary ---
Author Organization [facility] Address [address] [place] [address] Care Team Providers Care Tavern Keeper Name Role Phone Glendy Diallo MD Primary Care Provid er Unavailable Encounter Details Date Type Department Care Team (Late st Contact Info) Description 12/27/2019 Lab Requisition [facility] Pathology & Laboratory Medicine - [address] [address] Sergio Olvera CNM [address] [id number] Encounter for other general examination Social History [...] types, PCR Negative Negative 12/30/2019 14:02 EDT [facility] Comment:No E6 or E7 mRNA is detected from HPV types 16,18,31,33,35,39,45,51,52,56,58,59,66, and 68 by regulatory leader mediated amplification. Papanicolaou smear specimen (specimen) CERVIX UTERI STRUCTURE / Unknown 12/23/2019 13:45 EDT 12/29/2019 10:44 EDT Sergio Ovlera [facility] MICROBIOLOGY - GENER AL ORDERABLES [facility] [address] [place] [address] * PAP TEST (12/23/2019 13:45 EDT) Specimens A. Cervix and/or Endocervix, ThinPrep Imaging System with Manual Evaluation 12/31/2019 13:31 [facility] Specimen Adequacy Satisfactory for Evaluation - transformation zone component present 12/31/2019 13:31 [facility] General Categorization Negative for intraepithelial lesion or malignancy 12/31/2019 13:31 [facility] Descriptive Diagnosis Fungal organisms present morphologically consistent with Emilie species. 12/31/2019 13:31 [facility] Attestation By the signature below, the attending physician certifies that they have personally conducted a gross and/or microscopic examination of the described specimens and rendered or confirmed the above diagnosis. 12/31/2019 13:31 [facility] at 1331 Clinical History NONE 12/31/19 20 13:31 [facility] HPV The result for the Human Papillomavirus (HPV) Detection-High Risk Types is Negative. No E6 or E7 mRNA is detected from HPV types 16,18,31,33,35,39 ,45,51,52,56,58,5 9,66, and 68 by regulatory leader mediated amplification.Nina ting was performed on specimen [id number] and was resulted on 12/30/2019 1357 EDT by LUCI, LAB INSTRUMENT RESULTS IN 12/31/2019 13:31 [facility] Scanned Images 12/31/2019 13:31 [facility] Papanicolaou smear specimen (specimen) CERVIX UTERI STRUCTURE / Unknown 12/23/2019 13:45 EDT 12/27/2019 9:01 EDT Sergio Olvera [facility] PATHOLOGY ORDERABLES [facility] [address] [place] [address] documented in this encounter Visit Diagnoses Diagnosis Encounter for other general examination documented in this encounter Additional Health Concerns Infection Onset Date Last Indicated Resolved Time COVID-19 06/03/2022 06/03/2022 06/23/2022 22:1 5 EDT documented as of this encounter Care Teams Tavern Keeper Relationship Specialty Start Date End Date Glendy Diallo MD PCP - General 07/21/15 documented as of this encounter
--- OUTSIDE RECORDS SUMMARY | 2024-06-10 15:14 | XMS_ITS | Encounter Summary ---
Author Organization [facility] Address [address] [place] [address] Care Team Providers Care Manager Embalmer Funeral Director Name Role Phone Glendy Diallo MD Primary Care Provid er Unavailable Encounter Details Date Type Department Care Team (Late st Contact Info) Description 05/20/2024 Lab Requisition [facility] Pathology & Laboratory Medicine - [address] [address] Outr Resulting Lab, Provider Social History Tobacco [...] gonorrhoeae Result Negative Negative 05/21/2024 13:48 EDT [facility] Chlamydia trachomatis Result Negative Negative 05/21/2024 13:48 EDT [facility] Swab VAGINAL STRUCTURE / Unknown 05/19/2024 16:38 EDT 05/20/2024 18:27 EDT Provider Outr Resulting Lab MICROBIOLOGY - GENERAL ORDERABLES [facility] [address] [place] [address] documented in this encounter Visit Diagnoses Not on filedocumented in this encounter Care Teams Manager Embalmer Funeral Director Relationship Specialty Start Date End Date Glendy Diallo MD PCP - General 07/21/15 documented as of this encounter
--- OUTSIDE RECORDS SUMMARY | 2024-06-10 15:14 | XMS_ITS | Clinical Summary ---
Author Organization [facility] [place] [address] Care Team Providers Care Strategic Account Manager Name Role Phone Unavailable Primary Care [...]
--- OUTSIDE RECORDS SUMMARY | 2024-06-10 15:14 | XMS_ITS | Encounter Summary ---
Author Organization [facility] Address [address] [place] [address] Care Team Providers Care Dry Goods Clerk Name Role Phone Unavailable Primary Care Provider Unavailabl e Encounter Details Date Type Department Care Team (Late st Contact Info) Description 08/17/2004 Results Only [facility] [address] [place] [address] Unknown, Provider, Social History Tobacco Use Types [...] GA S ORDERABLES [facility] [address] [place] [address] documented in this encounter Visit Diagnoses Not on filedocumented in this encounter
--- OUTSIDE RECORDS SUMMARY | 2024-06-10 15:14 | XMS_ITS | Encounter Summary ---
Author Organization [facility] Address [address] [place] [address] Care Team Providers Care Bench Mechanic Name Role Phone Unavailable Primary Care Provider Unavailabl e Encounter Details Date Type Department Care Team (Latest Contact Info) Description 05/15/2000 16:29 EDT Hospital Encounter [facility] Emergency Department - [facility] [address] [place] [address] Emergency, Default, MD Discharge Disposition: Home or [...]
--- OUTSIDE RECORDS SUMMARY | 2024-06-10 15:14 | XMS_ITS | Encounter Summary ---
Author Organization [facility] Address [address] [place] [address] Care Team Providers Care Gumming Machine Operator Name Role Phone Glendy Diallo MD Primary Care Provid er Unavailable Encounter Details Date Type Department Care Team (Late st Contact Info) Description 12/04/2023 Lab Requisition [facility] Pathology & Laboratory Medicine - [address] [address] Outr Resulting Lab, Provider Social History Tobacco [...] Surface Ag Negative Negative 12/04/2023 22:44 EDT [facility] Blood VENOUS BLOOD / Unknown 12/04/2023 11:53 EDT 12/04/2023 21:28 EDT Provider Outr Resulting Lab CHEMISTRY & BLOOD GAS ORDERABLES [facility] [address] [place] [address] * HEPATITIS C AB W REFLEX TO HCV RNA BY PCR (12/04/2023 11:53 EDT) Hep C Antibody Negative Negative 12/04/2023 23:14 EDT [facility] Blood VENOUS BLOOD / Unknown 12/04/2023 11:53 EDT 12/04/2023 21:28 EDT Provider Outr Resulting Lab CHEMISTRY & BLOOD GAS ORDERABLES [facility] [address] [place] [address] documented in this encounter Visit Diagnoses Not on filedocumented in this encounter Care Teams Gumming Machine Operator Relationship Specialty Start Date End Date Glendy Diallo MD PCP - General 07/21/15 documented as of this encounter
--- OUTSIDE RECORDS SUMMARY | 2024-06-10 15:14 | XMS_ITS | Encounter Summary ---
Author Organization [facility] Address [address] [place] [address] Care Team Providers Care Priming Powder Premix Blender Name Role Phone Glendy Diallo MD Primary Care Provid er Unavailable Encounter Details Date Type Department Care Team (Late st Contact Info) Description 06/03/2022 Lab Requisition [facility] Pathology & Laboratory Medicine - [address] [address] Outr Resulting Lab, Provider Social History Tobacco [...] Priority Date/Time Associated Diagnosis Comments ZZCOVID-19 TEST [facility] PCR Today 06/03/2022 11:29 EDT COVID-19 TESTING Routine 06/03/2022 11:2 9 EDT documented in this encounter Results * COVID-19 TEST [facility] PCR (06/03/2022 11:29 EDT) Swab 06/03/2022 11:2 9 EDT 06/04/2022 17:09 EDT Provider Outr Resulting Lab MICROBIOLOGY - GENERAL ORDERABLES [facility] [address] [place] [address] * (ABNORMAL) COVID-19 TESTING (06/03/2022 11:29 EDT) COVID-19 rt-PCR Result Positive( AA) Negative 06/05/2022 12:02 EDT [facility] Comment: This test [...] was performed using the waldo SARS-CoV-2 assay ([employer] on the Waldo 6800 System Performing Lab Waldo 6800 [facility] Lab 06/05/2022 12:02 EDT [facility] Swab 06/03/2022 11:2 9 EDT 06/04/2022 17:09 EDT Provider Outr Resulting Lab MICROBIOLOGY - GENERAL ORDERABLES [facility] [address] [place] [address] documented in this encounter Visit Diagnoses Not on filedocumented in this encounter Additional Health Concerns Infection Onset Date Last Indicated Resolved Time COVID-19 06/03/2022 06/03/2022 06/23/2022 22:1 5 EDT documented as of this encounter Care Teams Priming Powder Premix Blender Relationship Specialty Start Date End Date Glendy Diallo MD PCP - General 07/21/15 documented as of this encounter
--- OUTSIDE RECORDS SUMMARY | 2024-06-10 15:14 | XMS_ITS | Encounter Summary ---
Author Organization [facility] Address [address] [place] [address] Care Team Providers Care Leather Leveler Name Role Phone Glendy Diallo MD Primary Care Provid er Unavailable Encounter Details Date Type Department Care Team (Late st Contact Info) Description 12/04/2023 Lab Requisition [facility] Pathology & Laboratory Medicine - [facility] [address] [place] [address] Outr Resulting Lab, Provider Social History Tobacco [...] U Negative <1 ng/mL 12/05/2023 12:06 EDT [facility] Urine URINE / Unknown 12/04/2023 1 1:00 EDT 12/04/2023 21:28 EDT N[facility]ative [facility] - 12/05/2023 12:06 EDT Testing performed by: [facility] [address] [place] [address] [address] [address] Control Board Operator: Ramu Antoine MD; CLIA # [id number] Provider Outr Resulting Lab URINALYSIS O RDERABLES [facility] [address] [facility], [address] [phone] documented in this encounter Visit Diagnoses Not on filedocumented in this encounter Care Teams Leather Leveler Relationship Specialty Start Date End Date Glendy Diallo MD PCP - General 07/21/15 documented as of this encounter
--- OUTSIDE RECORDS SUMMARY | 2024-06-10 15:14 | XMS_ITS | Encounter Summary ---
Author Organization [facility] [place] [address] Care Team Providers Care Animal Ride Attendant Name Role Phone Unavailable Primary Care Provider Unavailabl e Encounter Details Date Type Department Care Team (Late st Contact Info) Description 01/01/2024 Telephone Obstetrics [place] [phone] Mayra Andrews Social History Tobacco Use Types [...]
--- OUTSIDE RECORDS SUMMARY | 2024-06-10 15:14 | XMS_ITS | Encounter Summary ---
Author Organization [facility] Address [address] [place] [address] Care Team Providers Care Day Porter Name Role Phone Glendy Diallo MD Primary Care Provid er Unavailable Encounter Details Date Type Department Care Team (Late st Contact Info) Description 12/08/2023 Lab Requisition [facility] Pathology & Laboratory Medicine - [address] [id number] Personal history of other complications of , [...] types, PCR Negative Negative 12/11/2023 17:50 EDT [facility] Comment:No E6 or E7 mRNA is detected from HPV types 16,18,31,33,35,39,45,51,52,56,58,59,66, and 68 by help desk administrator mediated amplification. Pap Test CERVIX UTERI STRUCTURE / Unknown 12/04/2023 11:00 EDT 12/10/2023 10:27 EDT Sylvia May [facility] MICROBIOLOGY - GENER AL ORDERABLES [facility] [address] [place] [address] * PAP TEST (12/04/2023 11:00 EDT) Specimens A. Cervix and/or Endocervix , ThinPrep Imaging System with Manual Evaluation 12/11/2023 17:50 T [facility] Specimen Adequacy Satisfactory for Evaluation - transformation zone component present 12/11/2023 17:50 [facility] General Categorization Negative for intraepithelial lesion or malignancy 12/11/2023 17:50 T [facility] Attestation . 12/11/2023 17:50 [facility] at 1750 Clinical History SEE BELOW 12/11/19 24 17:50 T [facility] HPV The result for the Human Papillomavirus (HPV) Detection-High Risk Types is Negative. No E6 or E7 mRNA is detected from HPV types 16,18,31,33,35,39 ,45,51,52,56,58,5 9,66, and 68 by help desk administrator mediated amplification.Nina ting was performed on specimen [id number] and was resulted on 12/11/2023 1750 EDT by LUCI, LAB INSTRUMENT RESULTS IN 12/11/2023 17:50 EDT [facility] Performing Lab [facility] 12/11/2023 17:50 EDT [facility] Scanned Images 12/11/2023 17:50 EDT [facility] Pap Test CERVIX UTERI STRUCTURE / Unknown 12/04/2023 11:00 EDT 12/08/2023 16:08 EDT Sylvia May [facility] PATHOLOGY ORDERABLES [facility] [address] [place], [place] [id number] documented in this encounter Visit Diagnoses Diagnosis Personal history of other complications of , childbirth and the puerperium Encounter for supervision of normal , unspecified, unspecified trimester Encounter for supervision of normal , unspecified, first trimester documented in this encounter Care Teams Day Porter Relationship Specialty Start Date End Date Glendy Diallo MD PCP - General 07/21/15 documented as of this encounter
--- OUTSIDE RECORDS SUMMARY | 2024-06-10 15:14 | XMS_ITS | Encounter Summary ---
Author Organization [facility] Address [address] [place] [address] Care Team Providers Care Director Life Sciences Name Role Phone Glendy Diallo MD Primary Care Provid er Unavailable Encounter Details Date Type Department Care Team (Late st Contact Info) Description 12/04/[address] [facility] Pathology & Laboratory Medicine - [address] [address] Outr Resulting Lab, Provider Social History Tobacco [...] gonorrhoeae Result Negative Negative 12/05/2023 15:34 EDT [facility] Chlamydia trachomatis Result Negative Negative 12/05/2023 15:34 EDT [facility] Pap Test CERVIX UTERI STRUCTURE / Unknown 12/04/2023 11:00 EDT 12/05/2023 9:40 EDT Provider Outr Resulting Lab MICROBIOLOGY - GENERAL ORDERABLES [facility] [address] [place] [address] documented in this encounter Visit Diagnoses Not on filedocumented in this encounter Care Teams Director Life Sciences Relationship Specialty Start Date End Date Glendy Diallo MD PCP - General 07/21/15 documented as of this encounter
--- OUTSIDE RECORDS SUMMARY | 2024-06-10 15:14 | XMS_ITS | Encounter Summary ---
Author Organization [facility] Address [address] [place] [address] Care Team Providers Care Healthcare Applications Analyst Name Role Phone Glendy Diallo MD Primary Care Provid er Unavailable Encounter Details Date Type Department Care Team (Late st Contact Info) Description 10/12/2022 Lab Requisition [facility] Pathology & Laboratory Medicine - [address] [address] Outr Resulting Lab, Provider Social History Tobacco [...] Lab MICROBIOLOGY - GENERAL ORDERABLES [facility] [address] [place] [address] * COVID-19 TESTING (10/11/2022 18:45 EST) COVID-19 rt-PCR Result Negative Negative 10/13/2022 12:11 EST [facility] Comment: This test has [...] performed using the waldo SARS-CoV-2 assay ([employer] on the Waldo 6800 System Performing Lab Waldo 68[address] [facility] Lab 10/13/2022 12:11 EST [facility] Swab 10/11/2022 18:4 5 EST 10/12/2022 21:34 EST Provider Outr Resulting Lab MICROBIOLOGY - GENERAL ORDERABLES [facility] [address] [place] [address] documented in this encounter Visit Diagnoses Not on filedocumented in this encounter Care Teams Healthcare Applications Analyst Relationship Specialty Start Date End Date Glendy Diallo MD PCP - General 07/21/15 documented as of this encounter
--- OUTSIDE RECORDS SUMMARY | 2024-06-10 15:14 | XMS_ITS | Encounter Summary ---
Author Organization [facility] Address [address] [place] [address] Care Team Providers Care Junior Financial Analyst Name Role Phone Unavailable Primary Care Provider Unavailabl e Encounter Details Date Type Department Care Team (Late st Contact Info) Description 09/22/2003 Results Only [facility] - Maple conversion [address] [place] [address] Unknown, Provider, Social History Tobacco Use Types [...] URINALYSIS ORDERABLE S Performing Organization Address City/State/[facility] Co de Phone Number [facility] [address] [place] [address] documented in this encounter Visit Diagnoses Not on filedocumented in this encounter
--- OUTSIDE RECORDS SUMMARY | 2024-06-10 15:14 | XMS_ITS | Encounter Summary ---
Author Organization [facility] Address [facility] [place] [address] Care Team Providers Care Medical Charge Entry Specialist Name Role Phone Unavailable Primary Care Provider Unavailabl e Reason for Referral * Consultation (Urgent) - Closed Specialty Diagnoses / Procedures Referred By Padmini t Referred To Contact Obstetrics and Gynecology Diagnoses Antepartum multigravida of advanced maternal age Positive result on maternal serum screen for trisomy 18 Abnormal chromosomal and genetic finding on screening mother Cassy Calvillo CNM [address] [place] [address] [address] [place] [address] [facility] [address] [address] [place] [address] Referral ID Status Reason Start Date Expiration Date V isits Requested Visits Authorized [id number] Closed Consult, Test & Treat PCP Updated and/or Approved 12/18/2023 12/17/2024 6 6 Encounter Details Date Type Department Care Team (Late st Contact Info) Description 12/18/2023 Transcribe Orders eDH Incoming Referrals [phone] Cassy Calvillo CNM [address] [place] [address] [address] [place], [place] [id number] Antepartum multigravida of advanced maternal age; Positive [...]
--- OUTSIDE RECORDS SUMMARY | 2024-06-10 15:14 | XMS_ITS | Encounter Summary ---
Author Organization [facility] Address [address] [place] [address] Care Team Providers Care Banquet Supervisor Name Role Phone Unavailable Primary Care Provider Unavailabl e Encounter Details Date Type Department Care Team (Late st Contact Info) Description 10/23/[address] [facility] [address] [place] [address] Unknown, Provider, Social History Tobacco Use Types [...] within class. Cutoff = 300 ng/ml [facility] 10/23/2003 19:1 8 EST 10/24/2003 21:15 EST Provider Unknown MD URINALYSIS ORDERABLE S Performing Organization Address City/State/[facility] Co de Phone Number [facility] [address] [place] [address] documented in this encounter Visit Diagnoses Not on filedocumented in this encounter
--- OUTSIDE RECORDS SUMMARY | 2024-06-10 15:14 | XMS_ITS | Encounter Summary ---
Author Organization [facility] Address [address] [place] [address] Care Team Providers Care Electrocardiogram Technician Name Role Phone Glendy Diallo MD Primary Care Provid er Unavailable Encounter Details Date Type Department Care Team (Late st Contact Info) Description 05/20/2024 Lab Requisition [facility] Pathology & Laboratory Medicine - [facility] [address] [place] [address] Outr Resulting Lab, Provider Social History Tobacco [...] Confirmation Negative <2 ng/mL 05/26/2024 14:43 EDT [facility] Norfentanyl Confirmation 11(A) <10 ng/mL 05/26/2024 14:43 EDT [facility] Urine URINE / Unknown 05/19/2024 1 6:28 EDT 05/20/2024 17:34 EDT Narrative [facility] - 05/26/2024 14:43 EDT Evidence of presence of Fentanyl below cutoff concentration. ??ALB 05/25/24 Testing performed by: [facility] [address] [place] [address] Program Writer: Ramu Antoine MD; CLIA # [id number] Provider Outr Resulting Lab GEN LAB UNIT COLLECT ORDERABLES Performing Organization Address [facility] de Phone Number [facility] [address] [place] [address] * (ABNORMAL) FENTANYL SCREEN WITH REFLEX TO CONFIRMATION, U (05/19/2024 16:28 EDT) Fentanyl Screen with Reflex to Confirmation, U Positive( A) <1 ng/mL 05/21/2024 16:28 EDT [facility] Comment: Trazodone is known to cross react with the Fentanyl immunoassay and may cause a false positive Urine URINE / Unknown 05/19/2024 1 6:28 EDT 05/20/2024 17:34 EDT Narrative [facility] - 05/21/2024 16:28 EDT Testing performed by: [facility] [address] [place] [address] Program Writer: Ramu Antoine MD; CLIA # [id number] Provider Outr Resulting Lab URINALYSIS O RDERABLES Performing Organization Address [facility] Co de Phone Number [facility] [address] [place] [address] documented in this encounter Visit Diagnoses Not on filedocumented in this encounter Care Teams Electrocardiogram Technician Relationship Specialty Start Date End Date Glendy Diallo MD PCP - General 07/21/15 documented as of this encounter
--- OUTSIDE RECORDS SUMMARY | 2024-06-10 15:14 | XMS_ITS | Encounter Summary ---
Author Organization [facility] Address [address] [place] [address] Care Team Providers Care Bus Transportation Manager Name Role Phone Glendy Diallo MD Primary Care Provid er Unavailable Encounter Details Date Type Department Care Team (Late st Contact Info) Description 12/29/2023 Lab Requisition [facility] Pathology & Laboratory Medicine - [address] [address] Outr Resulting Lab, Provider Social History Tobacco [...] gonorrhoeae Result Negative Negative 12/30/2023 14:01 EDT [facility] Chlamydia trachomatis Result Negative Negative 12/30/2023 14:01 EDT [facility] Urine URINE / Unknown 12/28/2023 1 7:40 EDT 12/29/2023 17:05 EDT Narrative [facility] - 12/30/2023 14:01 EDT A first catch urine specimen is acceptable for detection of Gonorrhea and Chlamydia, but might detect up to 10% fewer infections when compared with vaginal and endocervical swab samples. Provider Outr Resulting Lab MICROBIOLOGY - GENERAL ORDERABLES [facility] [address] [place] [id number] documented in this encounter Visit Diagnoses Not on filedocumented in this encounter Care Teams Bus Transportation Manager Relationship Specialty Start Date End Date Glendy Diallo MD PCP - General 07/21/15 documented as of this encounter
--- OUTSIDE RECORDS SUMMARY | 2024-06-10 15:14 | XMS_ITS | Encounter Summary ---
Author Organization [facility] Address [address] [place] [address] Care Team Providers Care Dinkey Mechanic Name Role Phone Glendy Diallo MD Primary Care Provid er Unavailable Encounter Details Date Type Department Care Team (Late st Contact Info) Description 06/02/2020 Lab Requisition [facility] Pathology & Laboratory Medicine - [address] [address] Outr Resulting Lab, Provider Social History Tobacco [...] Outr Resulting Lab MICROBIOLOGY - GENERAL ORDERABLES [facility] [address] [place] [address] * COVID-19 TESTING (06/02/2020 20:00 EDT) COVID-19 rt-PCR Result Negative Negative 06/03/2020 12:47 EDT [facility] Comment: This test has [...] history, and epidemiological information. Performed on the RFIDeasher Fusion instrument Performing Lab [facility] 06/03/2020 12:47 EDT [facility] Swab 06/02/2020 20:0 0 EDT 06/03/2020 9:56 EDT Provider Outr Resulting Lab MICROBIOLOGY - GENERAL ORDERABLES [facility] [address] [place] [address] documented in this encounter Visit Diagnoses Not on filedocumented in this encounter Additional Health Concerns Infection Onset Date Last Indicated Resolved Time COVID-19 06/03/2022 06/03/2022 06/23/2022 22:1 5 EDT documented as of this encounter Care Teams Dinkey Mechanic Relationship Specialty Start Date End Date Glendy Diallo MD PCP - General 07/21/15 documented as of this encounter
--- OUTSIDE RECORDS SUMMARY | 2024-06-10 15:14 | XMS_ITS | Encounter Summary ---
Author Organization [facility] Address [address] [place] [address] Care Team Providers Care Facility Practice Specialist Name Role Phone Glendy Diallo MD Primary Care Provid er Unavailable Encounter Details Date Type Department Care Team (Late st Contact Info) Description 12/30/2019 Lab Requisition [facility] Pathology & Laboratory Medicine - [address] [address] Unknown, Provider, Social History Tobacco Use Types [...] 12:40 EDT) Hold Hold 12/30/2019 22:01 EDT [facility] Blood VENOUS BLOOD / Unknown 12/30/2019 12:40 EDT 12/30/2019 20:45 EDT Provider Unknown LAB INFO SERVICE AND SUPPORT & PHONE RESULT Performing Organization Address City/[facility]/ZIP Co de Phone Number [facility] [address] [place] [address] * HEPATITIS B SURFACE ANTIGEN (12/30/2019 12:40 EDT) Hep B Surface Ag Negative Negative 12/31/2019 10:35 EDT [facility] Blood VENOUS BLOOD / Unknown 12/30/2019 12:40 EDT 12/30/2019 20:44 EDT Provider Unknown CHEMISTRY & BLOOD GA S ORDERABLES Performing Organization Address [facility] Co de Phone Number [facility] [address] [place] [address] * HEPATITIS C AB W REFLEX TO HCV RNA BY PCR (12/30/2019 12:40 EDT) Hep C Antibody Negative Negative 12/31/2019 10:04 EDT [facility] Blood VENOUS BLOOD / Unknown 12/30/2019 12:40 EDT 12/30/2019 20:45 EDT Provider Unknown CHEMISTRY & BLOOD GA S ORDERABLES Performing Organization Address [facility] Co de Phone Number [facility] [address] [place] [address] documented in this encounter Visit Diagnoses Not on filedocumented in this encounter Additional Health Concerns Infection Onset Date Last Indicated Resolved Time COVID-19 06/03/2022 06/03/2022 06/23/2022 22:1 5 EDT documented as of this encounter Care Teams Facility Practice Specialist Relationship Specialty Start Date End Date Glendy Diallo MD PCP - General 07/21/15 documented as of this encounter
[2024-06-10 15:17] VITALS: BP 122/70; PULSE 81; TEMP 36.6
[2024-06-10 15:40] VITALS: BP 122/70; PULSE 81
[2024-06-10 15:46] LABS: HCT 37.2 % (36.0-46.0); HGB 12.7 g/dL (11.2-15.7); MCHC 34.1 % (32.0-36.0); MCV 91 fL (80-95); MPV 8.7 fL (8.0-11.0); Platelet Count 233 10^3/uL (130-400); RDW 13.1 % (11.7-14.6); RDW-SD 42.9 fL; WBC 8.61 10^3/uL (4.4-10.8)
[2024-06-10 15:57] LABS: ALT 14 U/L (14-59); AST 11 U/L (15-37); Albumin 2.7 g/dL (3.4-5.0); Alkaline Phosphatase 163 U/L (46-116); Anion Gap 8.6 mmol/L (3-11); BUN 7 mg/dL (7-18); Bilirubin, Total 0.26 mg/dL (0.2-1.0); CO2 22.4 mmol/L (21.0-32.0); CREATININE 0.5 mg/dL (0.55-1.02); Calcium 8.6 mg/dL (8.5-10.1); Chloride 102 mmol/L (98-107); Estimated GFR 124.58 (mL/min/1.73m2); Glucose 85 mg/dL (74-106); Potassium 3.7 mmol/L (3.5-5.1); Sodium 133 mmol/L (136-145); Uric Acid 2.9 mg/dL (2.6-6.0)
[2024-06-10 16:08] VITALS: BP 129/79; PULSE 88
--- NOTE | 2024-06-10 16:35 | W.OBNST ---
Date of service: 06/10/24 Time of Service: 16:36 NST Evaluation Reason for NST Reasons for Nonstress Test: DECREASED MOVEMENT Gestational Age Gestational Age in Weeks and Days: 40 Weeks and 3Days Test and Monitor Explained Test/Monitor Explained: Test Explained and Monitor Explained Vital Signs Blood Pressure: 122/70 Pulse: 81 Temperature: 97.9 F Urine Results Urine Protein: Negative Urine Ketones: Negative Urine Glucose: Negative Urine Blood: Negative NST Information Time on Monitor: 15:20 Date off Monitor: 06/10/24 Time off Monitor: 16:10 NST Interventions: PO Hydration NST Evaluation Patient States Movement: Present FHR Baseline: 120 Variability: Moderate 6-25 bpm Accelerations: 15x15 Decelerations: None NST Results: Reactive Note Ultrasound Done: N/A. NST Note Note: Juan had elevated BP at the office today and reported decreased movement. NST is reactive and fetus is active during exam. BP recheck 129/79. I offered induction of labor today to Juan due to post dates and elevated B.P. I reviewed the risks including continued hypertension. She declines induction at this time. She said that being induced for her first baby was a terrible experience. We discussed previous positive urine drug screens and Juan denies use. She was hesitant to provide a urine specimen today, stating that she had false positive screens for cocaine at [facility] treatment program followed by negative confirmatory tests. She believes that positive drug screens were due to the nasal inhaler she uses. She does not know the name of the inhaler and she gets it at the [employer]. She agrees to UDS today and that was sent with protein/creatinene ratio. She agreed to return in 2-3 days for NST but was unable to schedule that today. The serum labs are WNL and protei/creatinene ratio is pending. She was insistent on leaving to warehouse order picker her son and I told her that I would call her with the urine results. She declines cervical exam today. vertex by ishan and EFW 6.5 pounds. The urine was noted to be clear in the specimen cup. NST Reviewed and Verified by: Cassy Calvillo
[2024-06-10 16:37] VITALS: BP 122/70; PULSE 81; TEMP 36.6
[2024-06-10 17:47] LABS: *AMPHETAMINES SCREEN URINE Negative (Negative); *BARBITURATES SCREEN URINE Negative (Negative); *BENZODIAZEPINES SCREEN URINE Negative (Negative); Cannabinoids THC Negative (Negative); Cocaine Screen,Urine Negative (Negative); METHADONE URINE SCREEN Negative (Negative); OPIATES URINE SCREEN Negative (Negative)
[2024-06-10 17:50] LABS: Tricyclic Antidepressants Negative (Negative)
[2024-06-10 17:56] LABS: COMMENT (LAB VIEW ONLY) 2.83 mg/dL
[2024-06-10 17:58] LABS: PROTEIN < 6.0 mg/dL
[2024-06-10 18:54] LABS: Bilirubin Negative (Negative); Blood Negative (Negative); Clarity Clear (Clear); Glucose Negative (Negative); Ketones Negative (Negative); Leukocyte Esterase Negative (Negative); Nitrite Negative (Negative); Specific Gravity 1.015 (1.005-1.025); Urobilinogen 0.2 mg/dL (Up to 0.2)
[2024-06-11 13:40] VITALS: BP 131/76; PULSE 90
[2024-06-14 10:32] LABS: Fentanyl Scr w/Rfx Confirm Negative ng/mL (<1)
[2024-06-17 12:03] LABS: Buprenorphine 10.7 ng/mL (Cutoff: 5.0); Norbuprenorphine 12.4 ng/mL (Cutoff: 2.5)
== END 2024-06-10 16:29 ==
LOC: BCD 15:12 → OBS 15:14
PROVIDERS: Visit Provider Advanced Practice Midwife
DX: O36.8130 Decreased fetal movements, third trimester, not applicable or unspecified (principal); Z3A.40 40 weeks gestation of pregnancy
CPT/HCPCS: 59025; 80053; 80307; 80348; 85027; 81003; 82565; 84156; 84550

== ENCOUNTER 2024-06-16 14:05 | Inpatient (IN) | payer MEDICAID, SELFPAY ==
[2024-06-16] VITALS (67 sets, daily range): BP systolic 133–202; BP diastolic 64–127; PULSE 70–98; RESP 18–20; TEMP 36.4–37; O2SAT 97–100; BMI 33.4
--- NOTE | 2024-06-16 13:29 | NUR.NOTE ---
Nursing Note: Patient was scheduled for Induction on 06/16/24 at 11:00am. By 1300 patient had still not arrived, RN tried calling patient and received no answer. RN left messaged instructing patient to call [facility] to reschedule or come up with a new plan.
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
[2024-06-16 15:29] LABS: HCT 36.6 % (36.0-46.0); HGB 12.3 g/dL (11.2-15.7); MCH 30.6 pg (27.0-33.0); MCHC 33.6 % (32.0-36.0); MCV 91 fL (80-95); MPV 8.7 fL (8.0-11.0); Platelet Count 248 10^3/uL (130-400); RBC 4.02 10^6/uL (3.93-5.22); RDW 12.9 % (11.7-14.6); RDW-SD 43.1 fL; WBC 8.58 10^3/uL (4.4-10.8)
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
[2024-06-16] MEDS: Lactated Ringers 1,000 ML 125 ML IV (16:00)
[2024-06-16] MEDS: Oxytocin/Normal Saline 30 UNIT/500 ML BAG 2 UNITS IV (16:01)
[2024-06-16 16:56] LABS: *AMPHETAMINES SCREEN URINE Negative (Negative); *BARBITURATES SCREEN URINE Negative (Negative); *BENZODIAZEPINES SCREEN URINE Negative (Negative); Cannabinoids THC Negative (Negative); Cocaine Screen,Urine Positive (Negative); METHADONE URINE SCREEN Negative (Negative); OPIATES URINE SCREEN Negative (Negative)
[2024-06-16 16:58] LABS: Tricyclic Antidepressants Negative (Negative)
--- NOTE | 2024-06-16 17:05 | W.OBNST ---
Date of service: 06/16/24 Time of Service: 17:05 NST Evaluation Reason for NST Reasons for Nonstress Test: OTHER, SEE COMMENT Reason for NST Other: induction Gestational Age Gestational Age in Weeks and Days: 41 Weeks and 2Days Test and Monitor Explained Test/Monitor Explained: Test Explained, Monitor Explained and Patient Verbalized Understanding NST Information Date on Monitor: 06/16/24 Time on Monitor: 14:13 Date off Monitor: 06/16/24 Time off Monitor: 14:38 Total Time on Monitor: 25 NST Interventions: None Contraction Frequency: 0 NST Evaluation Patient States Movement: Present FHR Baseline: 135 Variability: Moderate 6-25 bpm Accelerations: 15x15 Decelerations: None NST Results: Reactive Note Ultrasound Done: N/A. NST Note Note: Admit for IOL NST Reviewed and Verified by: Sylvia May
--- NOTE | 2024-06-16 18:19 | W.PM.OBNL1 ---
Date of service: 06/16/24 Time of Service: 18:19 Informed Consent Informed Consent: Induction of Labor and Risk,Benefits,Alternatives Discussed Contractions Monitor Mode: External Contraction Frequency(min): rare Fetus A Monitor: External (US) Heart Rate Baseline: 125 Variability: Moderate (6-25 BPM) Categories: Category I Amniotic Membrane Status: Intact Assessment and Plan Assessment and plan (1) Encounter for induction of labor: Status: Acute Assessment and plan: Pitocin infusion at 8u/min, category 1 tracing, pt remains comfortable, ambulating prn. UDS today is cocaine+, order placed for cocaine metabolite confirmation send out and lab notified Objective Abnormal lab results 06/16/24 Range/Units 14:00 Urine Cocaine Screen Positive A (Negative) Temp Pulse Resp BP Pulse Ox 98.6 F 95 H 20 133/88 99 06/16/24 17:04 06/16/24 17:04 06/16/24 17:04 06/16/24 17:04 06/16/24 14:48 Laboratory Results WBC 8.58 10^3/uL (4.4-10.8) 06/16/24 15:20 RBC 4.02 10^6/uL (3.93-5.22) 06/16/24 15:20 Hgb 12.3 g/dL (11.2-15.7) 06/16/24 15:20 Hct 36.6 % (36.0-46.0) 06/16/24 15:20 MCV 91 fL (80-95) 06/16/24 15:20 MCH 30.6 pg (27.0-33.0) 06/16/24 15:20 MCHC 33.6 % (32.0-36.0) 06/16/24 15:20 RDW 12.9 % (11.7-14.6) 06/16/24 15:20 Plt Count 248 10^3/uL (130-400) 06/16/24 15:20 MPV 8.7 fL (8.0-11.0) 06/16/24 15:20 Urine Opiates Screen Negative (Negative) 06/16/24 14:00 Urine Methadone Screen Negative (Negative) 06/16/24 14:00 Ur Barbiturates Screen Negative (Negative) 06/16/24 14:00 Ur Tricyclics Screen Negative (Negative) 06/16/24 14:00 Ur Amphetamines Screen Negative (Negative) 06/16/24 14:00 U Benzodiazepines Scrn Negative (Negative) 06/16/24 14:00 Urine Cocaine Screen Positive (Negative) A 06/16/24 14:00 Ur THC Screen Negative (Negative) 06/16/24 14:00 ABO/Rh O Positive 06/16/24 15:20 Antibody Screen NEGATIVE 06/16/24 15:20 Vital Signs Reviewed: Yes Objective Narrative Objective Narrative: Category 1 tracing, pitocin induction infusion @ 8u/min Pt appears comfortable, vital signs stable Cocaine+ on UDS, Cocaine metabolite, Fentanyl and Bup are pending (send out) Subjective Interval history since last seen: Pt reports feeling some lower abd cramps but is not in pain at this time, walking in room. Pitocin infusion @ 8 u/min.
--- NOTE | 2024-06-16 20:41 | PGE_ITS ---
Date of service: 06/16/24 Time of Service: 20:41 Informed Consent Informed Consent: Induction of Labor, Regional Anesthesia and Risk,Benefits,Alternatives Discussed Contractions Monitor Mode: External Contraction Frequency(min): 2-3 Intensity: Mild/Moderate Fetus A Monitor: External (US) Heart Rate Baseline: 130 Variability: Moderate (6-25 BPM) Categories: Category I Accelerations: 15 X 15 Decelerations: None Amniotic Membrane Status: Intact Assessment and Plan Assessment and plan (1) Encounter for induction of labor: Status: Acute Assessment and plan: A: Pt requests epidural anesthesia, though she states she is frightened of the procedure. 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
[2024-06-16] MEDS: FentaNYL/ROPIvacaine 2 mcg/ml and 0.1% 200 ML CADD Cassette EP (21:00)
--- NOTE | 2024-06-16 21:08 | W.ANESNEU ---
Epidural/Spinal Catheter Date Performed: 06/16/24 Procedure Start: 20:15 Procedure Stop: 21:00 Requesting Provider: Sylvia May Procedure Location: Obstetrics Reason Performed: Labor Epidural Standard Monitors Applied: Blood Pressure, SpO2 and See EMR for corresponding vital signs Patient Position: Sitting Sedation Given (Indicate Dose Given): No Sedation given Patient Mental Status: Awake Sterility: Hand Hygiene, Surgical Cap, Surgical Mask, Sterile Gloves, Sterile Drape/Sheet, Eye Protection and Chlorhexidine Procedure Location: L3-L4 Interspace Epidural Needle: Tuohy 18 Gauge Needle Length: 3.5 Inch Needle Approach: Midline Epidural Procedure: Skin Prepped, Sterile Drape Placed, 1% Lidocaine to skin and subcutaneous tissue with 25G needle, Tuohy Needle placed, DEMOND to Saline Used, Epidural Catheter Placed, Negative Heme, Negative CSF Flow and Tuohy Needle Removed Catheter Placed?: Catheter Placed Test Dose (Indicate Dose Given): 3ml 1.5% Lidocaine with 1:200K Epinephrine Given and Negative Test Dose Loss of Resistance Depth (cm): 6 Catheter depth at skin (cm): 13 Dressing: [place]orbaview Dressing Placed, Tegaderm Applied, Mastisol Used and Dressing reinforced with Tape Epidural Provider Bolus (Indicate Dose Given): Total Ropivacaine 0.1% with Fentanyl 2mcg/ml Given from pump. (ml) Dose:: 8ml Additives (Indicate Dose Given ): None Infusion Medication: Medication Infusion Began Medication Infusion: Ropivacaine 0.1% with Fentanyl 2mcg/ml Maintenance Infusion Rate (ml/hour): 11 PCEA Bolus Dose (ml): 5 Block Level: T7 Paresthesia: None Ultrasound: Used to shari site Number of Attempts (See previous attempts in note section): 2 Procedure Tolerated: Patient tolerated well Procedure Outcome: Successful Performed By: Gentry Sanchez
[2024-06-16 21:11] LABS: ALT 15 U/L (14-59); AST 12 U/L (15-37); Albumin 2.7 g/dL (3.4-5.0); Alkaline Phosphatase 161 U/L (46-116); BUN 7 mg/dL (7-18); Bilirubin, Total 0.25 mg/dL (0.2-1.0); CREATININE 0.5 mg/dL (0.55-1.02); Calcium 8.7 mg/dL (8.5-10.1); Chloride 104 mmol/L (98-107); Estimated GFR 124.58 (mL/min/1.73m2); Glucose 94 mg/dL (74-106); Potassium 4.2 mmol/L (3.5-5.1); Sodium 139 mmol/L (136-145); Total Protein 6.6 g/dL (6.4-8.2)
--- NOTE | 2024-06-16 21:30 | W.PM.OBNL1 ---
Date of service: 06/16/24 Time of Service: 21:30 Informed Consent Informed Consent: Induction of Labor and Risk,Benefits,Alternatives Discussed Pelvic Exam Dilation: 5 Effacement (%): 90 station: -2 Position: LOP Cervix Position: mid Consistency: soft Contractions Monitor Mode: External Contraction Frequency(min): 3-5 minutes Intensity: Mild Fetus A Monitor: External (US) Heart Rate Baseline: 140 Variability: Moderate (6-25 BPM) Categories: Category I Accelerations: Present Decelerations: None Amniotic Membrane Status: Intact Assessment and Plan Assessment and plan (1) Encounter for induction of labor: Status: Acute Assessment and plan: A: Labor progression to 5/90% vtx -2 Epidural in effect, category 1 tracing CMP neg, urine prot/creat ratio pending Mild range BP's noted though not sustained P: Pt prefers to restart pitocin prior to AROM Continue IOL process Objective Vital Signs Reviewed: Yes Objective Narrative Objective Narrative: Epidural is effective, pt prefers sitting fairly upright BP was elevated during procedure, settled to 130's over 70's now Pre-E labs are WNL Subjective Interval history since last seen: Legs feel numb, can still feel contractions but is coping much better now, resting in sitting position in bed. Discussed restarting pitocin and AROM to encourage labor, pt prefers to restart pitocin first.
[2024-06-16 22:14] LABS: COMMENT (LAB VIEW ONLY) 64.49 mg/dL; Prot/Crea Ur Ratio 0.13
--- NOTE | 2024-06-16 23:09 | W.PM.OBNL1 ---
Date of service: 06/16/24 Time of Service: 23:11 Informed Consent Informed Consent: Induction of Labor, Risk,Benefits,Alternatives Discussed and Other (AROM discussed with pt. She declines FSE.) Pelvic Exam Dilation: 6 Effacement (%): 90 station: -1 Position: LOP Cervix Position: mid Consistency: soft Contractions Monitor Mode: External Contraction Frequency(min): 3-4 Intensity: Moderate Fetus A Monitor: External (US) Heart Rate Baseline: 145 Variability: Moderate (6-25 BPM) Categories: Category I Amniotic Membrane Status: Ruptured Rupture Method: Artifical Amniotic Fluid: Clear Amount: small Date of Membrane Rupture: 06/16/24 Time of Membrane Rupture: 23:04 Assessment and Plan Assessment and plan (1) Encounter for induction of labor: Status: Acute Assessment and plan: A: Pitocin @ 4u/min, Category 1 tracing, epidural effective AROM for clear fluid, progressed to 6/90% -1/-2 station P: Continue pitocin induction Encourage pt to rest Anticipate Objective Vital Signs Reviewed: Yes Subjective Interval history since last seen: Pt dozing while watching a movie, consents to AROM
[2024-06-17] VITALS (11 sets, daily range): BP systolic 127–154; BP diastolic 67–90; PULSE 72–91; O2SAT 95–100
--- NOTE | 2024-06-17 00:53 | W.PM.OBNL1 ---
Date of service: 06/17/24 Time of Service: 00:53 Informed Consent Informed Consent: Induction of Labor, Risk,Benefits,Alternatives Discussed and Other (Pt consents to FSE application) Pelvic Exam Dilation: 7 Effacement (%): 100 station: -1 Position: LOP Cervix Position: mid Consistency: soft Contractions Monitor Mode: External Contraction Frequency(min): 3-4 minutes Intensity: Mild/Moderate Fetus A Monitor: Internal (FSE) Heart Rate Baseline: 125 Variability: Moderate (6-25 BPM) Categories: Category II Accelerations: Present Decelerations: Variable Amniotic Membrane Status: Ruptured Assessment and Plan Assessment and plan (1) Encounter for induction of labor: Status: Acute Assessment and plan: A: Pitocin at 6 u/min, contraction pattern still less than ideal Variable decels noted w/contractions, recover to baseline after 20 seconds, moderate variability Lack of pt cooperation with positioning, epidural remains effective P: Continue to work with pt for positioning to encourage rotation and descent Monitor for progression of labor; unable to increase pitocin due to category 2 tracing Close watch on EFM tracing Objective Vital Signs Reviewed: Yes Notable Details: BP 127/67 Objective Narrative Objective Narrative: Pt dislikes changing positions, prefers to be sitting up to watch videos on her computer After several variable decels were noted, pt consented to application of FSE Attempts to position pt in left lateral position met with resistance by pt Explained that sidelying positioning may help improve variable decels and help baby improve head position
--- NOTE | 2024-06-17 03:56 | OBVDS_ITS ---
Date of service: 06/17/24 Time of Service: 03:56 OB Labor/ Delivery Information Baby A Delivery Delivery Method: Spontaneaous Presentation: Vertex Cephalic Position: Vertex Vertex Position: Left Occipital Anterior Breech Position: N/A Cord Description-Baby A: 3 Vessels and Other (cord over right (anterior) shoulder, left nuchal hand) Amniotic Fluid: Clear Estimated Blood Loss: 300 QBL Delivery Outcome: Liveborn Transferred: Remains with Mother Note: Due to recurrent variable decels, pt's position was changed from LLP to RLP, then to H&K and kneeling. During these position changes recurrent periodic ross iables persisted and then seemed to lessen once pt returned to semi-fowlers. Pitocin had been turned off, due to improvement in FHT was restarted at 3 u/min. Vaginal exam revealed head rotated to CJ position and had descended to +1 station with a rim of cvx. Epidural remained effective throughout procedures but pt maintained good leg movement and weight bearing. She was assisted to bedside commode for 300 ml urine void, then returned to bed. 2nd stage huddle was completed and coached pushing begun. [facility] aware of category 2 tracing and remained inhouse, moderate variability was maintained throughout 2nd stage. Excellent maternal efforts resulted in of vigorous male over intact perineum, nuchal hand and loop of cord over shoulder noted, infant to mother's arms immediately. pitocin bolus started, cord ceased pulsating and was clamped then cut by FOB, cord blood collected, [place] placenta delivered intact with 3VC. Fundus firm below umbilicus, minimal rubra. Superficial right labial laceration repaired with 3.0 Vicryl requiring 3-4 stitches. Family bonding observed, apgars 9/9, weight 2910 gms. Providers Nurse Library Sales Consultant: Sylvia May Supervisor Drying And Winding: Gentry Sanchez Nurse: Idalia Guthrie Nurse: Laurel Marx Labor/Delivery Information Number of Babies in Womb: 1 Steroids Given: None Reason Steroids Not Administered: N/A Group Beta Strep: Negative Antibiotics Administered: No Rubella Status: Immune Blood Type: O+ Varicella Immunity: Immune Maternal Complications: None Shoulder Dystocia: No Stages of Labor Onset of Labor Date: 06/16/24 Onset of Labor Time: 20:00 Complete Dilatation Date: 06/17/24 Complete Dilatation Time: 02:25 Labor - Stage 1 Duration: 6 hours and 25 minutes ROM Baby A: 06/16/24 ROM Baby A: 23:04 ROM Total Time- Baby A: [id number] Infant Delivery Date-Baby A: 06/17/24 Infant Delivery Time-Baby A: 02:35 Labor Stage 2 Duration: 10 minutes Placenta Delivery Date-Baby A: 06/17/24 Placenta Delivery Time-Baby A: 02:45 Labor-Stage 3 Duration: 10 minutes Total Length of Labor-Baby A: 6 hours and 35 minutes Placenta Cultured: No Placenta Status: Delivered Baby A Gender: Male Gestational Status: Term (39-41.6 wks) Gestational Age in Weeks/Days: 41 Weeks and 3 Days weight: 6 lb 6.647 oz Weight Comment: 2910 gms Score-1 Minute Interval(Baby A) Heart Rate-1 minute: 100 BPM or Greater Respiratory Effort- 1 minute: Spontaneous/Strong Cry Muscle Tone-1 minute: Active Movement Reflex Response-1 minute: Prompt Response Color-1 minute: Bluish Hands or Feet Total Score-1 minute: 9 Score-5 Minute Interval(Baby A) Heart Rate- 5 minute: 100 BPM or Greater Respiratory Effort-5 minute: Spontaneous/Strong Cry Muscle Tone-5 minute: Active Movement Reflex Response-5 minute: Prompt Response Color-5 minute: Bluish Hands or Feet Total Score- 5 minute: 9 Procedure Procedures: Cord Blood Collection Interventions Pain Management Interventions: Epidural./ Induction Indication: Post Date, Type of Induction: Artifical Rupture of Membranes and Pitocin,/ Repair of Laceration
--- NOTE | 2024-06-17 08:49 | NUR.NOTE ---
Addendum entered by Raysa Smith 06/17/24 10:10: 0845 RN received phone call from pharmacy, pt would not allow pharmacy to take her medication out of the room for verification, pharmacy intern notified pharmacist and verbalized to RN that Pharmacist will come up to verify at her digression. RN validated pts concerns with pt about taking medication out of the room, pt verbalized understanding that pharmacy will come up at some point today to verify medications Original Note: 0805 RN in room to assess pt. Pt requesting IV to be removed. RN informed pt per orders IV needs to be in at least 12 hours after delivery with an epidural. Pt stated to nurse I'm going to take it out once you leave this room just so you know. RN removed IV as to ensure safe removal instead of potential unsafe removal by pt. 0830 - RN made aware that pt has nasal spray from home that she is using in room and has her own suboxone from home in room that wants to use. RN informed pt that home medications need to be verified by pharmacy and that pharmacy would need to take her medication down to pharmacy to verify it. pt asked for 5 minutes to find medication before pharmacy in to room. RN informed pharmacy Nursing Note:
[2024-06-17] MEDS: Ibuprofen 600 MG TAB PO (11:05)
[2024-06-17 11:43] LABS: Fentanyl Scr w/Rfx Confirm Positive ng/mL (<1)
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
--- NOTE | 2024-06-17 12:52 | W.ANESPOSTOP ---
Postoperative Evaluation Date, Time and Location Date Performed: 06/17/24 Time Performed: 12:52 Patient Location: Obstetrics Vital Signs Most Recent Imported Vital Signs: Most Recent Vital Signs Temp Pulse Resp BP Pulse Ox 36.4 C L 91 H 20 154/90 H 98 06/16/24 22:18 06/17/24 02:43 06/16/24 17:04 06/17/24 02:43 06/17/24 00:42 Assessment Mental Status: Awake (Alert & Oriented to Patient Baseline) Airway and Respiratory Function: Patent airway with normal (patient baseline) respiratory exam Cardiovascular Function: Hemodynamically Stable Hydration Status: Adequately Hydrated Nausea & Vomiting: No Nausea or Vomiting Pain: Pain is tolerable per patient Peripheral Nerve Block: Patient did not receive a nerve block
[2024-06-18 09:19] LABS: Fentanyl Confirmation 5 ng/mL (<2); Norfentanyl Confirmation 19 ng/mL (<10)
[2024-06-23 07:23] LABS: Buprenorphine 27.44 ng/mL (Cutoff: 5.0); Norbuprenorphine 107.5 ng/mL (Cutoff: 2.5)
[2024-06-23 15:05] LABS: Benzoylecgonine 377 ng/mL (Cutoff: 50); Cocaine Negative ng/mL (Cutoff: 50); Cocaine Interpretation Positive.
== END 2024-06-17 16:45 | disposition home or self-care (01) | DRG 806 ==
PROVIDERS: Advanced Practice Midwife; Admitting Provider Advanced Practice Midwife; Visit Provider Advanced Practice Midwife
DX: O48.0 Post-term pregnancy (principal); Z37.0 Single live birth; O99.324 Drug use complicating childbirth; O76 Abnormality in fetal heart rate and rhythm complicating labor and delivery; O70.0 First degree perineal laceration during delivery; F11.20 Opioid dependence, uncomplicated; Z3A.41 41 weeks gestation of pregnancy; O13.4 Gestational [pregnancy-induced] hypertension without significant proteinuria, complicating childbirth; O69.81X0 Labor and delivery complicated by cord around neck, without compression, not applicable or unspecified
CPT/HCPCS: 59025; 80053; 80307; 80348; 80354; 85027; 86850; 86900; 86901; 80353; 82565; 84156